=== PATIENT | male | born 1965 | race Caucasian/White ===

== ENCOUNTER 2022-12-07 08:00 | Outpatient (OUT) | payer BC, SELFPAY ==
[2022-12-07 08:40] LABS: Estimated Average Glucose 114 mg/dL; Glycohemoglobin A1C 5.6 % (4.5-6.2)
[2022-12-07 09:12] LABS: Basophils Percent Auto 0.4 % (0.2-2.0); Eosinophils Absolute Auto 0.1 10^3/uL (0.0-0.7); Eosinophils Percent Auto 1.4 % (0.9-7.0); Hematocrit 47.3 % (42.0-54.0); Hemoglobin 15.7 g/dL (14.0-18.0); Immature Granulocytes Abs Auto 0.04 10^3/uL (0.00-0.03); Immature Granulocytes Pct Auto 0.5 % (0.0-0.5); Lymphocytes Absolute Auto 2.1 10^3/uL (1.2-3.8); Mean Corpuscular HGB Conc 33.2 g/dL (29.9-35.2); Mean Corpuscular Hemoglobin 28.3 pg (25.9-34.0); Mean Corpuscular Volume 85.2 fL (80.0-94.0); Mean Platelet Volume 9.5 fL (9.5-13.5); Monocytes Absolute Auto 0.8 10^3/uL (0.3-0.8); Neutrophils Absolute Auto 4.6 10^3/uL (1.4-6.5); Neutrophils Percent Auto 60.7 % (43.0-75.0); Platelet Count 219 10^3/uL (150-450); Red Blood Count 5.55 10^6/uL (4.70-6.10); Red Cell Distribution Width 13.6 % (11.0-15.0); White Blood Count 7.6 10^3/uL (4.0-11.0)
[2022-12-07 09:13] LABS: Alanine Aminotransferase 81 U/L (16-63); Albumin Globulin Ratio 0.9; Albumin Level 3.8 g/dL (3.4-5.0); Alkaline Phosphatase 103 U/L (46-116); Anion Gap 10.2; Aspartate Amino Transferase 36 U/L (15-37); BUN Creatinine Ratio 20.9; Bilirubin Total 0.5 mg/dL (0.2-1.0); Calcium 9.3 mg/dL (8.5-10.1); Carbon Dioxide 31.2 mmol/L (21.0-32.0); Chloride 103 mmol/L (98-107); Estimated GFR (African America >60 (>=60); Estimated GFR (Non-African Ame >60 (>=60); Globulin 4.2 g/dL; Glucose 104 mg/dL (74-106); Potassium 4.4 mmol/L (3.5-5.1); Sodium 140 mmol/L (136-145)
[2022-12-07 09:39] LABS: Prostate Specific Antigen Scrn 0.45 ng/mL (<=4.00)
[2022-12-07 09:40] LABS: Chol HDL Ratio 3.8; Cholesterol 194 mg/dL (<=200); HDL Cholesterol 51 mg/dL (40-60); Thyroid Stimulating Hormone 2.989 uIU/mL (0.358-3.740); Triglycerides 154 mg/dL (<=150); VLDL CHOLESTEROL 30.8 mg/dL
== END 2022-12-07 08:01 | disposition home or self-care (01) ==
LOC: LAB 08:03
PROVIDERS: PCP Internal Medicine; Visit Provider Internal Medicine
DX: Z00.00 Encounter for general adult medical examination without abnormal findings (principal)
CPT/HCPCS: 36415; 80053; 80061; 83036; 84443; 85025; G0103

== ENCOUNTER 2023-12-17 16:08 | Outpatient (OUT) | payer BC, SELFPAY ==
[2023-12-17 16:36] LABS: Basophils Percent Auto 0.4 % (0.2-2.0); Eosinophils Absolute Auto 0.2 10^3/uL (0.0-0.7); Eosinophils Percent Auto 2.1 % (0.9-7.0); Hematocrit 45.5 % (42.0-54.0); Immature Granulocytes Abs Auto 0.06 10^3/uL (0.00-0.03); Immature Granulocytes Pct Auto 0.6 % (0.0-0.5); Lymphocytes Absolute Auto 2.4 10^3/uL (1.2-3.8); Lymphocytes Percent Auto 23.2 % (20.5-60.0); Mean Corpuscular Hemoglobin 28.7 pg (25.9-34.0); Mean Platelet Volume 9.2 fL (9.5-13.5); Monocytes Percent Auto 9.4 % (1.7-12.0); Neutrophils Absolute Auto 6.8 10^3/uL (1.4-6.5); Neutrophils Percent Auto 64.3 % (43.0-75.0); Platelet Count 214 10^3/uL (150-450); Red Blood Count 5.23 10^6/uL (4.70-6.10); Red Cell Distribution Width 13.2 % (11.0-15.0); White Blood Count 10.5 10^3/uL (4.0-11.0)
[2023-12-17 17:10] LABS: Prostate Specific Antigen Scrn 0.46 ng/mL (<=4.00)
[2023-12-17 17:17] LABS: Estimated Average Glucose 114 mg/dL; Glycohemoglobin A1C 5.6 % (4.5-6.2)
[2023-12-17 17:20] LABS: Alanine Aminotransferase 61 U/L (16-63); Alkaline Phosphatase 109 U/L (46-116); Anion Gap 10.8; Aspartate Amino Transferase 28 U/L (15-37); BUN Creatinine Ratio 16.1; Bilirubin Total 0.4 mg/dL (0.2-1.0); Calcium 8.8 mg/dL (8.5-10.1); Carbon Dioxide 30.3 mmol/L (21.0-32.0); Chloride 105 mmol/L (98-107); Estimated GFR (African America >60 (>=60); Estimated GFR (Non-African Ame 60 (>=60); Glucose 100 mg/dL (74-106); Potassium 4.1 mmol/L (3.5-5.1); Sodium 142 mmol/L (136-145); Total Protein 7.7 g/dL (6.4-8.2)
[2023-12-17 17:21] LABS: Albumin Level 3.8 g/dL (3.4-5.0); Cholesterol 197 mg/dL (<=200); Globulin 3.9 g/dL; HDL Cholesterol 49 mg/dL (40-60); Triglycerides 239 mg/dL (<=150); VLDL CHOLESTEROL 47.8 mg/dL
== END 2023-12-17 16:09 | disposition home or self-care (01) ==
LOC: LAB 16:10
PROVIDERS: PCP Internal Medicine; Visit Provider Internal Medicine
DX: Z00.00 Encounter for general adult medical examination without abnormal findings (principal)
CPT/HCPCS: 36415; 80053; 80061; 83036; 84443; 85025; G0103

== ENCOUNTER 2024-01-02 10:20 | Outpatient (OUT) | payer BC, SELFPAY ==
--- NOTE | 2024-01-02 10:34 | XR_ITS ---
The [address] [address] Patient Name: HERB CARDENAS MRN: [id number] date: 1965 Sex: M Assigned Patient Location: [facility] Current Patient Location: Accession/Order Number: [id number] Exam Date: 01/02/2024 10:41 Report Date: 01/03/2024 08:42 At the request of: SLOAN NICHOLS Procedure: XR knee LT 4V PROCEDURE: XR knee LT 4V HISTORY: Left Knee Pain M25.562 COMPARISON: None. FINDINGS: BONES:No fracture, dislocation, or bone lesion. Minimal degenerative joint disease. SOFT TISSUES:No visible soft tissue swelling. EFFUSION:None visible. OTHER: Negative. XR/XR knee LT 4V IMPRESSION: 1. No abnormal or suspicious findings to account for patient's symptoms. Electronically authenticated by: KENDAL GILLETTE Date: 01/03/2024 08:42
== END 2024-01-02 10:21 | disposition home or self-care (01) ==
LOC: RAD 10:21
PROVIDERS: PCP Internal Medicine; Visit Provider Internal Medicine
DX: M25.562 Pain in left knee (principal)
CPT/HCPCS: 73564

== ENCOUNTER 2024-01-22 09:39 | Outpatient (OUT) | payer BC, SELFPAY ==
--- NOTE | 2024-01-22 09:49 | XR_ITS ---
The [address] [address] Patient Name: HERB CARDENAS MRN: [id number] date: 1965 Sex: M Assigned Patient Location: [facility] Current Patient Location: Accession/Order Number: [id number] Exam Date: 01/22/2024 10:00 Report Date: 01/24/2024 06:59 At the request of: SLOAN NICHOLS Procedure: XR hip LT 2V w/ pelvis PROCEDURE: XR hip LT 2V w/ pelvis HISTORY: Pain Of Left Lower Extremity M79.605 COMPARISON: None. FINDINGS: BONES:Narrowing of the joint space of the left hip. Large degenerative osteophytes along superior rim of acetabulum. Separate corticated ossification may represent remote fracture of a degenerative enthesophyte. Small degenerative enthesophytes along the articular margins of the femoral head. SOFT TISSUES:No visible soft tissue swelling. EFFUSION:None visible. OTHER: Negative. XR/XR hip LT 2V w/ pelvis IMPRESSION: 1. Moderate to marked degenerative changes of left hip joint. 2. No acute abnormality. Electronically authenticated by: KENDAL GILLETTE Date: 01/24/2024 06:59
--- OUTSIDE RECORDS SUMMARY | 2024-01-22 09:53 | XMS_ITS | CCD ---
Author Organization [facility] Care Team Providers Care Corrosion Prevention Metal Sprayer Name Role Phone WALLY ZIMMER Unavailable Unavailable MCKINLEY ANAYA Unavailable Unavailab migue JAIMES, VIRGEN EUCEDA Primary Care Unavailable THEODORE, VIRGEN EUCEDA Consulting Unavailable LEANNA STAFFORD Attending Unavailable RIVERA, LEANNA Admitting Unavailable WIECEK, DR DECLAN Artis Admitting Unavailable WIECEK, DR DECLAN Artis Attending Unavailable WIECEK, DR DECLAN Artis Consulting Unavailable THEODORE, VIRGENCHEN EUCEDA Primary Care Unavailable WIECEK, DR DECLAN Artis Attending Unavailable WIECEK, DR DECLAN Artis Admitting Unavailable ROSS, VIRGENCHEN EUCEDA Primary Care Unavailable WIECEK, DR DECLAN Artis Attending Unavailable WIECEK, DR DECLAN Artis Consulting Unavailable WIECEK, DR DECLAN Artis Admitting Unavailable ROSS, VIRGENCHEN EUCEDA Primary Care Unavailable CARISSA CACERES Consulting Unavailable GEN, DR LISA Admitting Unavailable GEN, DR LISA Attending Unavailable GEN, DR LISA Consulting Unavailable GEN, DR LISA Primary Care Unavailable Aziza Byrne Unavailable [phone] Sofia Purvis Unavailable Asif Blevins Unavailable Medications Current Medications Medication Drug Class(es) Dates Sig (Normalized) Sig (Original) azithromycin 40 mg/ml oral suspension (4 sources) Macrolide Antimicrobial Start: 11-30-2022 take 12.5 mL by mouth once daily Azithromycin 200 MG/5ML 12.5 ML Orally daily for 3 days Nov, Active fluticasone propionate 0.05 mg/actuat metered dose nasal spray (7 sources) Corticosteroid Start: 12-16-2023 Fluticasone Propionate Active 1 SPRAY INTRANASAL Daily December 16, 2023 12:00am Start: 11-21-2022 take 1 spray(s) nasa l route once daily Fluticasone Propionate 50 MCG/ACT 1 spray in each nostril Nasally Once a day for 30 days 14 Nov, 2022 Active levothyroxine sodium 0.1 mg oral tablet (8 sources) l-Thyroxine Start: 12-16-2023 take 1 tablet by mouth once daily in the morning Levothyroxine (Synthroid) 100 mcg tablet Active 0 .ROUTE .COMPLEX 90 December 16, 2023 9:35am TAKE 1 TABLET BY MOUTH EVERY DAY IN THE MORNING ON EMPTY STOMACH FOR 90 DAYS Start: 12-16-2023 End: 12-16-2023 take 100 ug by mouth once daily Levothyroxine Disconti nued 100 MCG PO Daily December 16, 2023 12:00am December 16, 2023 9:35am take 1 tablet by neva th once daily in the morning Synthroid 100 MCG 1 tablet in the morning on an empty stomach Orally Once a day for 90 days unsure of dose Active Synthroid unsure of dose Active Completed/Discontinued Medications Medication Drug Class(es) Dates Sig (Normalized) Sig (Original) amoxicillin 875 mg / clavulanate 125 mg oral tablet (5 sources) Penicillin-class Antibacterial Start: 11-24-2022 take 1 tablet by mouth every twelve hours Amoxicillin-Pot Clavulanate 875-125 MG 1 tablet Orally every 12 hrs for 7 days Nov, Not-Taking Problems Active Problems Problem Classification Problem Date Documented Date Episodic/Chronic Abdominal hernia (6 sources) Umbilical hernia with obstruction, without gangrene; Translations: [Umbilical hernia without obstruction or gangrene] Onset: 1 Episodic Acute bronchitis (1 source) Acute bronchitis due to other specified organisms Episodic Developmental disorders (7 sources) Mental retardation; Translations: [Unspecified intellectual disabilities] 12-29-2023 Chronic Developmental disorders (1 source) Borderline intellectual functioning Episodic Disorders of lipid metabolism (1 source) Pure hypercholesterolemia, unspecified; Translations: [PURE HYPERCHOLESTEROLEMIA UNSPEC] Onset: 1 Chronic Esophageal disorders (1 source) Gastro-esophageal reflux disease without esophagitis; Translations: [GERD WITHOUT ESOPHAGITIS] Onset: 1 Chronic Other connective tissue disease (1 source) Spasm; Translations: [Muscle spasm of calf] Episodic Other non-traumatic joint disorders (1 source) Pain in left knee; Translations: [Left knee pain] 01-02-2024 Episodic Other nutritional; endocrine; and metabolic disorders (1 source) Obesity; Translations: [Obesity, unspecified] Chronic Other nutritional; endocrine; and metabolic disorders (1 source) Body mass index 25-29 - overweight; Translations: [Body mass index (BMI) 29.0-29.9, adult] Episodic Other nutritional; endocrine; and metabolic disorders (1 source) Overweight; Translations: [Overweight] Episodic Other screening for suspected conditions (not mental disorders or infectious disease) (5 sources) Encounter for screening for malignant neoplasm of prostate; Translations: [Encounter for screening for malignant neoplasm of colon] Onset: 2 Episodic Other upper respiratory infections (3 sources) Acute upper respiratory infection, unspecified; Translations: [Acute pharyngitis, unspecified] Episodic Residual codes; unclassified (1 source) Other specified personal risk factors, not elsewhere classified; Translations: [Personal risk factor] Episodic Thyroid disorders (18 sources) Hypothyroidism, unspecified; Translations: [Autoimmune thyroiditis] Onset: 1 Chronic Unclassified (1 source) Unknown / UNK(Unknown) Onset: 8 Unclassified (3 sources) CONTACT W/AND (SUSP) EXPOS COVID-19; Translations: [CONTACT W/AND (SUSP) EXPOS COVID-19] Onset: 1 Viral infection (1 source) COVID-19; Translations: [COVID-19] Onset: 2 Past or Other Problems Problem Classification Problem Date Documented Da te Episodic/Chronic Other aftercare (1 source) Other intermediate (current) drug therapy; Translations: [OTH [facility] CURRENT DRUG THERAPY] Onset: 02-08-2021 Episodic Unclassified (1 source) CONTACT W/AND (SUSP) EXPOS COVID-19; Translations: [CONTACT W/AND (SUSP) EXPOS COVID-19] Onset: 06-14-2021 Results Test Name Value Interpretation Reference Range Facility Basophils Auto (Bld) [#/Vol] on 12-17-2023 Basophils (Bld) [#/Vol] 0.0 10 3/uL 0.0-0.1 [facility] Basophils/100 WBC Auto (Bld) on 12-17-2023 Basophils/100 WBC (Bld) 0.4 % 0.2-2.0 [facility] Cholesterol in LDL Calc [Mas s/Vol]on 12-17-2023 Cholesterol in LDL [Mass/Vol] 101.0 mg/dL [facility] Comment on above: <100 mg/dl [id number] 0-129 mg/dl NEAR OR ABOVE [id number] mg/dl BORDERLINE [id number] mg/dl HIGH>190 mg/dl VERY HIGH Cholesterol in VLDL Calc [Ma ss/Vol]on 12-17-2023 Cholesterol in VLDL [Mass/Vol] 47.8 mg/dL [facility] Eosinophils/100 WBC Auto (Bl d)on 12-17-2023 Eosinophils/100 WBC (Bld) 2.1 % 0.9-7.0 [facility] Erythrocyte distribution wid th Auto (RBC) [Ratio]on 12-17-2023 Erythrocyte distribution width (RBC) [Ratio] 13.2 % 11.0-15.0 [facility] Estimated glomerular filtrat ion rate (GFR) non- Americanon 12-17-2023 GFR/1.73 sq M.predicted among non-blacks MDRD (S/P/Bld) [Vol rate/Area] 60 mL/min/{1.73_m2} >=60 [facility] Globulin Calc (S) [Mass/Vol] on 12-17-2023 Globulin (S) [Mass/Vol] 3.9 g/dL [facility] Glucose mean value [Mass/vol ume] in Blood Estimated from glycated hemoglobinon 12-17-2023 Average glucose Estimated from glycated hemoglobin (Bld) [Mass/Vol] 114 mg/dL [facility] Hematocrit Auto (Bld) [Volum e fraction]on 12-17-2023 Hematocrit (Bld) [Volume fraction] 45.5 % 42.0-54.0 [facility] Hemoglobin [Mass/volume] in Bloodon 12-17-2023 Hemoglobin (Bld) [Mass/Vol] 15.0 g/dL 14.0-18.0 [facility] Laboratory - Chemistry and C hemistry - challengeon 12-17-2023 Albumin [Mass/Vol] 3.8 g/dL 3.4-5.0 [facility] ALP [Catalytic activity/Vol] 109 U/L 46-116 [facility] ALT [Catalytic activity/Vol] 61 U/L 16-63 [facility] AST [Catalytic activity/Vol] 28 U/L 15-37 [facility] Bilirubin [Mass/Vol] 0.4 mg/dL 0.2-1.0 [facility] Calcium [Mass/Vol] 8.8 mg/dL 8.5-10.1 [facility] Chloride [Moles/Vol] 105 mmol/L 98-107 [facility] Cholesterol [Mass/Vol] 197 mg/dL <=200 [facility] Cholesterol in HDL [Mass/Vol] 49 mg/dL 40-60 [facility] Comment on above: > or =60 mg/dl - LOW CARDIOVASCULAR RISK<40 mg/dl - HIGH CARDIOVASCULAR RISK CO2 [Moles/Vol] 30.3 mmol/L 21.0-32.0 [facility] Creatinine [Mass/Vol] 1.24 mg/dL 0.70-1.30 [facility] GFR/1.73 sq M.predicted MDRD (S/P/Bld) [Vol rate/Area] mL/min/{1.73_m2} >=60 [facility] Glucose [Mass/Vol] 100 mg/dL 74-106 [facility] Potassium [Moles/Vol] 4.1 mmol/L 3.5-5.1 [facility] Protein [Mass/Vol] 7.7 g/dL 6.4-8.2 [facility] Sodium [Moles/Vol] 142 mmol/L 136-145 [facility] Triglyceride [Mass/Vol] 239 mg/dL High <=150 [facility] TSH Qn 2.480 m[IU]/L 0.358-3.740 [facility] Urea nitrogen [Mass/Vol] 20.0 mg/dL High 7.0-18.0 [facility] Urea nitrogen/Creatinine [Mass ratio] 16.1 mg/mg [facility] Laboratory - Hematology and Cell countson 12-17-2023 HbA1c (Bld) [Mass fraction] 5.6 % 4.5-6.2 [facility] Comment on above: ADA RECOMMENDED LIMI T 4.0 - 6.0ADA THERAPEUTIC TARGET < 7.0ACTION SUGGESTED> 7.0 Immature granulocytes/100 WBC (Bld) 0.6 % High 0.0-0.5 [facility] Leukocytes [#/volume] correc arthur for nucleated erythrocytes in Blood by Automated counon 12-17-2023 WBC corrected for nucl RBC Auto (Bld) [#/Vol] 10.5 10 3/uL 4.0-11.0 [facility] Lymphocytes Auto (Bld) [#/Vo l]on 12-17-2023 Lymphocytes (Bld) [#/Vol] 2.4 10 3/uL 1.2-3.8 [facility] Lymphocytes/100 WBC Auto (Bl d)on 12-17-2023 Lymphocytes/100 WBC (Bld) 23.2 % 20.5-60.0 [facility] MCH Auto (RBC) [Entitic mass ]on 12-17-2023 MCH (RBC) [Entitic mass] 28.7 pg 25.9-34.0 [facility] MCHC Auto (RBC) [Mass/Vol]on 12-17-2023 MCHC (RBC) [Mass/Vol] 33.0 g/dL 29.9-35.2 [facility] MCV Auto (RBC) [Entitic vol] on 12-17-2023 MCV (RBC) [Entitic vol] 87.0 fL 80.0-94.0 [facility] Monocytes Auto (Bld) [#/Vol] on 12-17-2023 Monocytes (Bld) [#/Vol] 1.0 10 3/uL High 0.3-0.8 [facility] Monocytes/100 WBC Auto (Bld) on 12-17-2023 Monocytes/100 WBC (Bld) 9.4 % 1.7-12.0 [facility] Neutrophils Auto (Bld) [#/Vo l]on 12-17-2023 Neutrophils (Bld) [#/Vol] 6.8 10 3/uL High 1.4-6.5 [facility] Neutrophils/100 WBC Auto (Bl d)on 12-17-2023 Neutrophils/100 WBC (Bld) 64.3 % 43.0-75.0 [facility] No Panel Informationon 12-16 Eosinophils # (Auto) 0.2 10 3/uL 0.0-0.7 [facility] Immature Granulocyte # (Auto) 0.06 10 3/uL High 0.00-0.03 [facility] Prostate Specific Antigen Screen 0.46 ng/mL <=4.00 [facility] Platelet mean volume Auto (B ld) [Entitic vol]on 12-17-2023 Platelet mean volume (Bld) [Entitic vol] 9.2 fL Low 9.5-13.5 [facility] Platelets Auto (Bld) [#/Vol] on 12-17-2023 Platelets (Bld) [#/Vol] 214 10 3/uL 150-450 [facility] RBC Auto (Bld) [#/Vol]on RBC (Bld) [#/Vol] 5.23 10 6/uL 4.70-6.10 [facility] Serum or plasma albumin/glob ulin mass ratioon 12-17-2023 Albumin/Globulin [Mass ratio] 1.0 {ratio} [facility] Serum or plasma anion gap de terminationon 12-17-2023 Anion gap [Moles/Vol] 10.8 mmol/L [facility] Serum or plasma total choles terol/high density lipoprotein (HDL) cholesterol mass maury 12-17-2023 Cholesterol.total/C holesterol in HDL [Mass ratio] 4.0 {ratio} [facility] Comment on above: 3.3 - 4.4 LOW RISK4. 4 - 7.1 AVERAGE RISK7.1 - 11.0 MODERATE RISK>11.0 HIGH RISK Quick Strepon 11-24-2022 S. pyogenes Org specific cx Ql (Throat) Negative [employer] [facility] [employer] Other Quick Strep [employer] [facility] [employer] Other CBC AUTO DIFFon 11-29-2021 BASO # 0.1 103/ul Normal 0.0-0.1 [facility] Comment on above: Performed By: #### C BC #### [facility] [address] [address] [address] Eliza Barnes Basophils/100 WBC (Bld) 0.6 % Normal 0.2-2.0 [facility] Comment on above: Performed By: #### C BC #### [facility] [address] [address] [address] Eliza Barnes EO # 0.1 103/ul Normal 0.0-0.7 [facility] Comment on above: Performed By: #### C BC #### [facility] [address] [address] [address] Eliza Barnes Eosinophils/100 WBC (Bld) 1.7 % Normal 0.9-7.0 [facility] Comment on above: Performed By: #### C BC #### [facility] [address] [address] [address] Eliza Barnes Erythrocyte distribution width (RBC) [Ratio] 13.6 % Normal 11.0-15.0 [facility] Comment on above: Performed By: #### C BC #### [facility] [address] [place] [address] Dr. Eliza Barnes Hematocrit (Bld) [Volume fraction] 48.3 % Normal 42.0-54.0 [facility] Comment on above: Performed By: #### C BC #### [facility] [address] [place] [address] Dr. Eliza Barnes Hemoglobin (Bld) [Mass/Vol] 15.7 g/dL Normal 14.0-18.0 [facility] Comment on above: Performed By: #### C BC #### [facility] [address] [place] [address] Dr. Eliza Barnes IG # 0.09 10e3/ul Critically high 0.00-0.03 [facility] Comment on above: Performed By: #### C BC #### [facility] [address] [address] [address] Eliza Barnes IG % 1.1 % Critically high 0.0-0.5 [facility] Comment on above: Performed By: #### C BC #### [facility] [address] [place] [address] Dr. Eliza Barnes LYMPH # 2.1 103/ul Normal 1.2-3.8 [facility] Comment on above: Performed By: #### C BC #### [facility] [address] [place] [address] Dr. Eliza Barnes Lymphocytes/100 WBC (Bld) 25.7 % Normal 20.5-60.0 [facility] Comment on above: Performed By: #### C BC #### [facility] [address] [place] [address] Dr. Eliza Barnes MANUAL DIFF REQ NO Normal [facility] Comment on above: Performed By: #### C BC #### [facility] [address] [place] [address] Dr. Eliza Barnes MCH (RBC) [Entitic mass] 28.3 pg Normal 25.9-34.0 [facility] Comment on above: Performed By: #### C BC #### [facility] [address] [place] [address] Dr. Eliza Barnes MCHC (RBC) [Mass/Vol] 32.5 g/dL Normal 29.9-35.2 [facility] Comment on above: Performed By: #### C BC #### [facility] [address] [place] [address] Dr. Eliza Barnes MCV (RBC) [Entitic vol] 87.0 fL Normal 80.0-94.0 [facility] Comment on above: Performed By: #### C BC #### [facility] [address] [place] [address] Dr. Eliza Barnes MONO # 0.7 103/ul Normal 0.3-0.8 [facility] Comment on above: Performed By: #### C BC #### [facility] [address] [place] [address] Dr. Eliza Barnes Monocytes/100 WBC (Bld) 8.8 % Normal 1.7-12.0 [facility] Comment on above: Performed By: #### C BC #### [facility] [address] [place] [address] Dr. Eliza Barnes NEUT # 5.2 103/ul Normal 1.4-6.5 [facility] Comment on above: Performed By: #### C BC #### [facility] [address] [address] [address] Eliza Barnes Neutrophils/100 WBC (Bld) 62.1 % Normal 43.0-75.0 [facility] Comment on above: Performed By: #### C BC #### [facility] [address] [address] [address] Eliza Barnes Platelet mean volume (Bld) [Entitic vol] 9.3 fL Critically low 9.5-13.5 [facility] Comment on above: Performed By: #### C BC #### [facility] [address] [address] [address] Eliza Barnes PLT 218 103/ul Normal 150-450 [facility] Comment on above: Performed By: #### C BC #### [facility] [address] [place] [address] Dr. Eliza Barnes RBC 5.55 106/ul Normal 4.70-6.10 [facility] Comment on above: Performed By: #### C BC #### [facility] [address] [place] [address] Dr. Eliza Barnes WBC 8.3 103/ul Normal 4.0-11.0 [facility] Comment on above: Performed By: #### C BC #### [facility] [address] [place] [address] Dr. Eliza Barnes GLYCOHEMOGLOBIN A1Con 2021 ADA RECOMMENDATION SEE BELOW Normal [facility] Comment on above: Result Comment: ADA RECOMMENDED LIMIT 4.0 - 6.0 ADA THERAPEUTIC TARGET < 7.0 ACTION SUGGESTED > 7.0 Performed By: #### A 1C #### [facility] [address] [place] [address] Dr. Eliza Barnes Glucose [Mass/Vol] 114 mg/dL Normal [facility] Comment on above: Performed By: #### A 1C #### [facility] [address] [place] [address] Dr. Eliza Barnes HbA1c (Bld) [Mass fraction] 5.6 % Normal 4.5-6.2 [facility] Comment on above: Performed By: #### A 1C #### [facility] [address] [address] [address] Eliza Barnes LIPID PROFILEon 11-29-2021 CHOL-HDL RATIO NORM SEE BELOW Normal [facility] Comment on above: Result Comment: 3.3 - 4.4 LOW RISK 4.4 - 7.1 AVERAGE RISK 7.1 - 11.0 MODERATE RISK >11.0 HIGH RISK Performed By: #### C MP, TSH, LIPID #### [facility] [address] [address] [address] Eliza Barnes Cholesterol [Mass/Vol] 210 mg/dL Critically high <=200 [facility] Comment on above: Performed By: #### C MP, TSH, LIPID #### [facility] [address] [address] [address] Eliza Barnes Cholesterol in HDL [Mass/Vol] 52 mg/dL Normal 40-60 [facility] Comment on above: Performed By: #### C MP, TSH, LIPID #### [facility] [address] [place] [address] Dr. Eliza Barnes Cholesterol in LDL [Mass/Vol] 121.2 mg/dL Normal [facility] Comment on above: Performed By: #### C MP, TSH, LIPID #### [facility] [address] [address] [address] Eliza Barnes Cholesterol.total/C holesterol in HDL [Mass ratio] 4.0 {ratio} Normal [facility] Comment on above: Performed By: #### C MP, TSH, LIPID #### [facility] [address] [place] [address] Dr. Eliza Barnes HDL NORMAL > or = 60 mg/dl - LO W CARDIOVASCULAR RISK <40 mg/dl - HIGH CARDIOVASCULAR RISK Normal [facility] Comment on above: Performed By: #### C MP, TSH, LIPID #### [facility] [address] [place] [address] Dr. Eliza Barnes LDL CALC NORMAL SEE BELOW Normal [facility] Comment on above: Result Comment: <100 mg/dl OPTIMAL 100 - 129 mg/dl NEAR OR ABOVE OPTIMAL 130 - 159 mg/dl BORDERLINE HIGH 160 - 189 mg/dl HIGH >190 mg/dl VERY HIGH Performed By: #### C MP, TSH, LIPID #### [facility] [address] [place] [address] Dr. Eliza Barnes Triglyceride [Mass/Vol] 184 mg/dL Critically high <=150 [facility] Comment on above: Performed By: #### C MP, TSH, LIPID #### [facility] [address] [place] [address] Dr. Eliza Barnes VLDL CALC 36.8 mg/dL Normal [facility] Comment on above: Performed By: #### C MP, TSH, LIPID #### [facility] [address] [place] [address] Dr. Eliza Barnes PROF 14(COMP METB)on 022 Albumin [Mass/Vol] 3.8 g/dL Normal 3.4-5.0 [facility] Comment on above: Performed By: #### C MP, TSH, LIPID #### [facility] [address] [place] [address] Dr. Eliza Barnes Albumin/Globulin [Mass ratio] 0.9 {ratio} Normal [facility] Comment on above: Performed By: #### C MP, TSH, LIPID #### [facility] [address] [place] [address] Dr. Eliza Barnes ALP [Catalytic activity/Vol] 99 U/L Normal 46-116 [facility] Comment on above: Performed By: #### C MP, TSH, LIPID #### [facility] [address] [place] [address] Dr. Eliza Barnes ALT [Catalytic activity/Vol] 81 U/L Critically high 16-63 [facility] Comment on above: Performed By: #### C MP, TSH, LIPID #### [facility] [address] [place] [address] Dr. Eliza Barnes Anion gap [Moles/Vol] 11.4 mmol/L Normal [facility] Comment on above: Performed By: #### C MP, TSH, LIPID #### [facility] [address] [place] [address] Dr. Eliza Barnes AST [Catalytic activity/Vol] 31 U/L Normal 15-37 [facility] Comment on above: Performed By: #### C MP, TSH, LIPID #### [facility] [address] [place] [address] Dr. Eliza Barnes Bilirubin [Mass/Vol] 0.6 mg/dL Normal 0.2-1.0 [facility] Comment on above: Performed By: #### C MP, TSH, LIPID #### [facility] [address] [address] [address] Eliza Barnes Calcium [Mass/Vol] 8.9 mg/dL Normal 8.5-10.1 [facility] Comment on above: Performed By: #### C MP, TSH, LIPID #### [facility] [address] [place] [address] Dr. Eliza Barnes Chloride [Moles/Vol] 105 mmol/L Normal 98-107 [facility] Comment on above: Performed By: #### C MP, TSH, LIPID #### [facility] [address] [place] [address] Dr. Eliza Barnes CO2 [Moles/Vol] 29.5 mmol/L Normal 21.0-32.0 [facility] Comment on above: Performed By: #### C MP, TSH, LIPID #### [facility] [address] [place] [address] Dr. Eliza Barnes Creatinine [Mass/Vol] 1.02 mg/dL Normal 0.70-1.30 [facility] Comment on above: Performed By: #### C MP, TSH, LIPID #### [facility] [address] [place] [address] Dr. Eliza Barnes EGFR-AF [place] >60 Normal >=60 [facility] Comment on above: Performed By: #### C MP, TSH, LIPID #### [facility] [address] [place] [address] Dr. Eliza Barnes EGFR-NON AF [place] >60 Normal >=60 [facility] Comment on above: Performed By: #### C MP, TSH, LIPID #### [facility] [address] [place] [address] Dr. Eliza Barnes Globulin (S) [Mass/Vol] 4.0 g/dL Normal [facility] Comment on above: Performed By: #### C MP, TSH, LIPID #### [facility] [address] [address] [address] Eliza Barnes Glucose [Mass/Vol] 103 mg/dL Normal 74-106 [facility] Comment on above: Performed By: #### C MP, TSH, LIPID #### [facility] [address] [place] [address] Dr. Eliza Barnes Potassium [Moles/Vol] 3.9 mmol/L Normal 3.5-5.1 [facility] Comment on above: Performed By: #### C MP, TSH, LIPID #### [facility] [address] [place] [address] Dr. Eliza Barnes Protein [Mass/Vol] 7.8 g/dL Normal 6.4-8.2 [facility] Comment on above: Performed By: #### C MP, TSH, LIPID #### [facility] [address] [place] [address] Dr. Eliza Barnes Sodium [Moles/Vol] 142 mmol/L Normal 136-145 [facility] Comment on above: Performed By: #### C MP, TSH, LIPID #### [facility] [address] [place] [address] Dr. Eliza Barnes Urea nitrogen [Mass/Vol] 19.0 mg/dL Critically high 7.0-18.0 [facility] Comment on above: Performed By: #### C MP, TSH, LIPID #### [facility] [address] [place] [address] Dr. Eliza Barnes Urea nitrogen/Creatinine [Mass ratio] 18.6 mg/mg Normal [facility] Comment on above: Performed By: #### C MP, TSH, LIPID #### [facility] [address] [place] [address] Dr. Eliza Barnes TSHon 11-29-2021 TSH 3.463 uIU/mL Normal 0.358-3.740 [facility] Comment on above: Performed By: #### C MP, TSH, LIPID #### [facility] [address] [address] [address] Eliza Barnes Covid-19 PCR (CVDTB)on SARS-CoV-2 (COVID-19) RNA MANFRED+probe Ql (Unsp spec) Detected Critically abnormal NOT DETECTED [facility] Comment on above: Result Comment: This test is not yet approved or cleared by the [place] FDA. When there are no FDA-approved or cleared tests available, and other criteria are met, FDA can make tests available under an emergency access mechanism called an Emergency Use Authorization (EUA). The EUA for this test is supported by the [place] of Health and Human Service's (HHS's) declaration that circumstances exist to justify the emergency use of in vitro diagnostics for the detection and/or diagnosis of the virus that causes COVID-19. This EUA will remain in effect (meaning this test can be used) for the duration of the COVID-19 declaration justifying emergency of IVDs, unless it is terminated or revoked by FDA (after which the test may no longer be used). Performed By: #### C VDTBH #### [facility] [address] [address] [address] Eliza Barnes Covid-19 PCR (CVDTB)on 01-09 SARS-CoV-2 (COVID-19) RNA MANFRED+probe Ql (Unsp spec) Not detected Normal NOT DETECTED [facility] Comment on above: Result Comment: This test is not yet approved or cleared by the [place] FDA. When there are no FDA-approved or cleared tests available, and other criteria are met, FDA can make tests available under an emergency access mechanism called an Emergency Use Authorization (EUA). The EUA for this test is supported by the [place] of Health and Human Service's (HHS's) declaration that circumstances exist to justify the emergency use of in vitro diagnostics for the detection and/or diagnosis of the virus that causes COVID-19. This EUA will remain in effect (meaning this test can be used) for the duration of the COVID-19 declaration justifying emergency of IVDs, unless it is terminated or revoked by FDA (after which the test may no longer be used). When diagnostic testing is negative, the possibility of a false negative should be considered in the context of a patient's recent exposures and the presence of clinical signs and symptoms consistent with SARS-CoV-2. Performed By: #### C [facility] #### [facility] [address] [place], [place] [address] Arun OLSONon 10-01-2017 PROGRESS HNO ID: [id number]: Wally ZimmerService: (none)Author Type: PhysicianType: Progress NotesFiled: 10/01/2017 3:12 PMNote Text:(H35.373) Epiretinal membrane (ERM) of both eyes (primary encounterdiagnosis)(H 50.10) Exotropia of left eye(Z98.890) History of strabismus surgery(H53.041) Amblyopia suspect, right eye52 year old male patient that presents for a retinal evaluation. Onexamination today, the patient demonstrates an Epiretinal membrane in theright eye > Left eye. Additionally the patient has a history of strabismussurgery in youth with possible amblyopia Right eye. No cataract is presentand the vision is testing reasonably well. Advise observation alone.Return to clinic with Dr. Anaya in 6 months, as needed with retina.The documentation recorded by the scribe accurately reflects the service Ipersonally performed and the decisions made by me.I have confirmed and edited as necessary the relevant ophthalmic history,ROS, and the neuro exam findings as obtained by others. I have seen andexamined Tico Marshall. I have discussed the case and the management ofthis patient's care with the Orchestra Conductor, if applicable. I also havereviewed and agree with the assessment and plan as stated above and agreewith all of its relevant components.Wally Zimmer MDAflemiliano 2017 3:11 PM Normal [facility] Vital Signs Date Time Vital Sign Value Performing Clinician Facility 01-02-2024 09:38-0400 Body height 167.64 cm [facility] 01-02-2024 09:38-0400 Body mass index (BMI) [Ratio] 31 kg/m2 [facility] 01-02-2024 09:38-0400 Body weight 87.31 kg [facility] 01-02-2024 09:38-0400 Diastolic blood pressure 98 mm[Hg] [facility] 01-02-2024 09:38-0400 Heart rate 81 /min [facility] 01-02-2024 09:38-0400 Respiratory rate 12 /min [facility] 01-02-2024 09:38-0400 Systolic blood pressure 164 mm[Hg] [facility] 11-30-2022 11:00-0400 Body height 170.18 cm Asif Ball Other [facility] Other 11-30-2022 11:00-0400 Body mass index (BMI) [Ratio] 30.16 kg/m2 Asif Ball Other [facility] Other 11-30-2022 11:00-0400 Body weight 87.36 kg Asif Ball Other [facility] Other 11-30-2022 11:00-0400 Diastolic blood pressure 96 mm[Hg] Asif Ball Other [facility] Other 11-30-2022 11:00-0400 Respiratory rate 16 /min Asif Ball Other [facility] Other 11-30-2022 11:00-0400 Systolic blood pressure 153 mm[Hg] Asif Ball Other [facility] Other 11-24-2022 10:15-0400 Body height 170.18 cm Sofia Purvis Other [facility] Other 11-24-2022 10:15-0400 Body mass index (BMI) [Ratio] 29.94 kg/m2 Sofia Purvis Other [facility] Other 11-24-2022 10:15-0400 Body temperature 98.8 [degF] Sofia Purvis Other [facility] Other 11-24-2022 10:15-0400 Body weight 86.73 kg Sofia Hyun Other [facility] Other 11-24-2022 10:15-0400 Diastolic blood pressure 87 mm[Hg] Sofia Hyun Other [facility] Other 11-24-2022 10:15-0400 Respiratory rate 20 /min Sofia Hyun Other [facility] Other 11-24-2022 10:15-0400 SaO2% (BldA) [Mass fraction] 92 % Sofia Hyun Other [facility] Other 11-24-2022 10:15-0400 Systolic blood pressure 142 mm[Hg] Sofiamiguel Purvis Other [facility] Other 11-21-2022 14:15-0400 Body height 170.18 cm Aziza Byrne Other [facility] Other 11-21-2022 14:15-0400 Body mass index (BMI) [Ratio] 30.38 kg/m2 Aziza Byrne Other [facility] Other 11-21-2022 14:15-0400 Body weight 88 kg Aziza Byrne Other [facility] Other 11-21-2022 14:15-0400 Diastolic blood pressure 100 mm[Hg] Aziza Byrne Other [facility] Other 11-21-2022 14:15-0400 Systolic blood pressure 158 mm[Hg] Aziza Byrne Other [facility] Other Encounters Encounter Date Encounter Type Care Provider Facility Start: 01-02-2024 End: 01-02-2024 ambulatory [facility] Work Phone: Start: 01-02-2024 End: 01-02-2024 Encounter for general adult medical examination without abnormal findings [facility] Start: 01-02-2024 End: 01-02-2024 Patient encounter procedure [facility] Work Phone: Start: 12-17-2023 Non-patient / Non-visit [facility] Professional [employer] Work Phone: Start: 12-06-2023 Patient encounter status [facility] Start: 03-12-2023 End: 03-12-2023 ambulatory Asif Blevins Other [facility] Other Start: 03-12-2023 Telephone encounter Asif Blevins [facility] Start: 12-10-2022 End: 12-10-2022 ambulatory Asif Blevins Other [facility] Other Start: 12-10-2022 Telephone encounter Asif Blevins [facility] Start: 12-04-2022 End: 12-04-2022 ambulatory Asif Blevins Other [facility] Other Start: 12-04-2022 Telephone encounter Asif Ball [facility] Start: 11-30-2022 End: 11-30-2022 ambulatory Asif Blevins Other [facility] Other Start: 11-30-2022 Encounter for genera l adult medical examination without abnormal findings Asif [facility] Start: 11-30-2022 Periodic preventive med est patient 40-64yrs Asif Blevins [facility] Start: 11-24-2022 End: 11-24-2022 ambulatory Sofia Purvis Other [facility] Other Start: 11-24-2022 Office outpatient vi sit 15 minutes Sofia Purvis [facility] Start: 11-21-2022 End: 11-21-2022 ambulatory Aziza Byrne Other [facility] Other Start: 11-21-2022 Office outpatient vi sit 15 minutes Aziza Byrne [facility] Start: 11-30-2021 Encounter for genera l adult medical examination without abnormal findings DR ASIF BLEVINS [facility] Start: 11-29-2021 End: 11-30-[address] ASIF BLEVINS Facility:[facility] Start: 11-29-2021 End: 11-30-2021 Encounter for general adult medical examination without abnormal findings DR ASIF BLEVINS Facility:[facility] Start: 11-28-2021 Adult health examination Marin Blevins Other [facility] Other Start: 06-14-2021 End: 06-14-2021 ambulatory VIRGEN JAIMES Facility:[facility] Start: 02-08-2021 Encounter for preprocedural laboratory examination DR DECLAN LLANOS [facility] Start: 02-08-2021 Encounter for other preprocedural examination DR DECLAN LLANOS [facility] Start: 02-03-2021 End: 02-03-[address] DECLAN LLANOS Facility:[facility] Start: 01-31-2021 End: 02-01-[address] DECLAN LLANOS Facility:[facility] Start: 01-31-2021 End: 02-01-2021 Encounter for preprocedural laboratory examination DR DECLAN LLANOS Facility:[facility] Start: 01-25-2021 End: 01-26-[address] DECLAN LLANOS Facility:[facility] Start: 01-25-2021 End: 01-26-2021 Encounter for other preprocedural examination DR DECLAN LLANOS Facility:[facility] Start: 10-01-2017 End: 10-28-2017 Ambulatory WALLY ZIMMER [facility] Procedures Date Procedure Procedure Detail Performing Clinician Start: 11-29-2021 PSA screening VIRGEN AGUDELO Comment on above: Performed By: #### [facility] #### [facility] [address] [address] [address] Eliza Barnes Depression screening Destiny Blevins Other Plan of Treatment Date Care Activity Detail Author XR Knee - left 4 Views [facility] Immunizations Immunization Date Immunization Notes Care Provider Fa cility 07-07-2020 COVID-19 Joleen overton Other [facility] 06-08-2020 COVID-19 Joleen overton Other [facility] Payers Date Payer Category Payer Unknown [id number] 1965 Unknown [id number] 2.16.84 [id number] 1965 Unknown [id number] 2.16.84 [id number] 1965 Unknown [id number] 2.16.84 [id number] 1965 Unknown [id number] 2.16.84 [id number] 1965 Unknown [id number] 2.16.84 [id number] [id number] [id number] Social History Date Type Detail Facility Sex Assigned At [employer] [facility] Other Start: 11-30-2022 [facility] Start: 1965 Sex Assigned At Male F [facility] Evaluation note 12-04-2022 Note Date & Type Note Facility 12-04-2022 Evaluation note Encounter Date Diagnosis Assessment Notes Nov, Screening for colon cancer (ICD-10 - Z12.11) [facility] Other Evaluation note 11-30-2022 Note Date & Type Note Facility 11-30-2022 Evaluation note Encounter Date Diagnosis Assessment Notes Nov, Wellness examination (ICD-10 - Z00.00) Healthy diet and exercise. Reviewed age-appropriat e preventive testing recommended. Nov, Autoimmune thyroiditis (ICD-10 - E06.3) Euthyroid, yearly TSH Nov, Other specified hypothyroidism (ICD-10 - E03.8) Nov, Borderline learning disability (ICD-10 - R41.83) Family assisting w ADL Works at [employer] Nov, Acute bronchitis due to other specified organisms (ICD-10 - J20.8) Instructed to use Robitussin or Mucinex for cough, saline or Flonase NS for congestion, Tylenol for pain and fever. Nov, Screening PSA (prostate specific antigen) (ICD-10 - Z12.5) Yearly PSA Nov, Colon cancer screening (ICD-10 - Z12.11) DIscussed Cologuard vs colonoscopy [facility] Other Evaluation note 11-24-2022 Note Date & Type Note Facility 11-24-2022 Evaluation note Encounter Date Diagnosis Assessment Notes Nov, Sore throat (ICD-10 - J02.9) Patient is concerned for strep throat. Rapid strep is negative. Discussed sore throat is likely related to postnasal drip causing inflammation. May use warm salt water gargles, topical throat sprays or throat lozenges, ibuprofen or Tylenol for discomfort. Nov, Acute nasopharyngitis (ICD-10 - J00) Discussed with patient and family member that symptoms likely remain viral at this time. Discussed viral upper respiratory can last 7 to 14 days. Discussed antibiotics do not unfortunately treat viral illnesses. May use Mucinex DM, Claritin or Zyrtec for symptomatic treatment over next 5-6 days. May continue Flonase. Discussed will give printed Rx for Augmentin to start if symptoms or not gradually improving over the next 5 to 6 days. Discussed if does end up needing to take antibiotic should do probiotic supplement. Follow-up with PCP if no improvement after 7 days of antibiotic. [facility] Other Evaluation note 11-21-2022 Note Date & Type Note Facility 11-21-2022 Evaluation note Encounter Date Diagnosis Assessment Notes Nov, Viral upper respiratory illness (ICD-10 - J06.9) Symptoms appear viral today. Continue to use Tylenol and ibuprofen for general discomfort. May use plain mucinex and FLonse for symptom management. Encourage fluids and rest. Symptoms should improve within the next 4-7 days. If no improvement of symptoms by 7-10 days, patient should call the office and will send in an antibiotic. Patient should follow up sooner if symptoms worsen. Patient and mother verbalizes understanding and agreement with treatment plan. [facility] Other Clinical Note 02-03-2021 Note Date & Type Note Facility 02-03-2021 Note OPERATIVE NOTE OPERATION DATE: 02/03/2021 PREOPERATIVE DIAGNOSIS: Incarcerated umbilical hernia. POSTOPERATIVE DIAGNOSIS: Incarcerated umbilical hernia (containing omentum). PROCEDURE PERFORMED: Incarcerated umbilical hernia repair with partial omentectomy of incarcerated omentum. SURGEON: Declan Llanos MD [facility] PROJECT MANAGER: STEPHANIE Keita. ANESTHESIA: General, 0.5% Marcaine for local. DISPOSITION: Patient was extubated in the Operating Room then taken to PACU in fair condition. PROCEDURE: Patient was brought into the Operating Room and placed supine on the operating table. After establishment of general endotracheal anesthesia, the patient's abdomen was shaved with clippers and prepped and draped in a sterile fashion. An infraumbilical incision was made. The incision was carried down through the skin using sharp dissection and through the soft tissue using electrocautery Bovie. The umbilicus was encircled and the umbilical skin was removed from the hernia sac using electrocautery Bovie. The hernia sac was excised using electrocautery Bovie. The hernia had incarcerated omentum. This omentum was transected using the LigaSure device and passed off the table as a specimen. A medium size Ventralex graft was placed into the defect and sutured in 4 quadrants using 0 Vicryl in an interrupted fashion. The fascia was then closed over the mesh using 0 Vicryl in an interrupted fashion. The umbilical skin was tacked to the fascia using 3-0 Vicryl. The soft tissue was reapproximated using 3-0 Vicryl. The skin was reapproximated using 4-0 Monocryl in a subcuticular fashion. The incision was cleaned with normal saline and dried. Tincture of benzoin was placed on both sides of the incision and 1/2 inch Steri-Strips were placed. The patient's umbilicus was packed with gauze and a dry sterile dressing was placed. The patient tolerated the procedure without any difficulties. All instrument and sponge counts were correct at the end of the case. The patient was extubated in the Operating Room and taken to the PACU in fair condition.. [facility] Signed and Approved by: DR DECLAN LLANOS . 02/10/2021 06:37:00 [facility] Evaluation note Note Date & Type Note Facility Evaluation note No Information [facility] Other Evaluation note Note Date & Type Note Facility Evaluation note Diagnosis Onset Date Hypothyroid acute Learning disability acute Wellness examination acute Screening PSA (prostate specific antigen) noneactive [facility] Work Phone: History general Narrative - Reported Note Date & Type Note Facility History general Narrative - Reported Type Medical History Hypothyroid Surgical History hernia repair 2020 [facility] Other History general Narrative - Reported Note Date & Type Note Facility History general Narrative - Reported Type Medical History Hypothyroid Medical History Mental disability Medical History Adult hypothyroidism Surgical History hernia repair 2020 Hospitalization History SEE SURGICAL HX [facility] Other Summary Purpose Family History Relationship Condition Age at Onset Recorded Date/T raudel father Unknown Advance Directives Advance Directive Response Recorded Date/ Time Advance Directives No December 05 11:14am Chief Complaint and Reason for Visit Chief Complaint Wellness Reason for Visit Hypothyroid Learning disability Wellness examination Screening PSA (prostate specific antigen) Additional Source Comments (unrecognized sect ion and content) No Status Records FoundNo Status Records Found INFORMATION SOURCE (unrecogn ized section and content) DATE CREATED AUTHOR 11/27/2017 [facility] DATE CREATED AUTHOR 'S ORGANIZ ATION 12/01/2021 [facility] REASON FOR VISIT (unrecogniz ed section and content) Cough-COVID NegativeSORE THR OAT, STREPWELLNESSNo InformationLab Resultscologuard results Care Teams (unrecognized sec tion and content) Team Status: Active Member Role Status Dates Asif Blevins DO Primary Care Provider Active Team Status: Active Member Role Status Dates Asif Ball , DO Primary Care Provide r, Attending Provider Active Start: December 17, 2023 Team Status: Inactive Member Role Status Dates Asif Blevins , DO Primary Care Provide r, Attending Provider Active Start: January 02, 2024 End: January 02, 2024 Goals (unrecognized section and content) Goals may be documented in a n alternate section FOR RECORDS PERTAINING TO PATIENTS WHO ARE OR HAVE BEEN ENROLLED IN A CHEMICAL DEPENDENCY/SUBSTANCEABUSE PROGRAM, SOME INFORMATION MAY BE OMITTED. This clinical summary was aggregated from multiple sources. Caution should be exercised in using it in the provision of clinical care. This summary normalizes information from multiple sources, and as a consequence, information in this document may materially change the coding, format and clinical context of patient data. In addition, data may be omitted in some cases. CLINICAL DECISIONS SHOULD BE BASED ON THE PRIMARY CLINICAL RECORDS. [facility]io [facility]. provides no warranty or guarantee of the accuracy or completeness of information in this document.
== END 2024-01-22 09:40 | disposition home or self-care (01) ==
LOC: RAD 09:40
PROVIDERS: PCP Internal Medicine; Visit Provider Internal Medicine
DX: M79.605 Pain in left leg (principal)
CPT/HCPCS: 73502

== ENCOUNTER 2024-03-17 11:44 | Outpatient (OUT) | payer BC, SELFPAY ==
--- NOTE | 2024-03-17 | ECG_ITS ---
The [facility] Test Date: 2024-03-17 Pat Name: HERB CARDENAS Department: Room: - Gender: Male [employer]: : 1965 Requested By: SLOAN NICHOLS Order Number: [id number] Reading MD: SLOAN NICHOLS Measurements Intervals [place] Rate: 83 P: 55 SD: 188 QRS: 14 QRSD: 82 T: 36 QT: 337 QTc: 398 Interpretive Statements SINUS RHYTHM No previous ECG available for comparison Electronically Signed On 03-17-2024 22:40:13 EDT by SLOAN NICHOLS
--- OUTSIDE RECORDS SUMMARY | 2024-03-17 11:59 | XMS_ITS | CCD ---
Author Organization [facility] Care Team Providers Care Lockstitch Hemmer Name Role Phone WALLY ZIMMER Unavailable Unavailable [...] Primary Care Unavailable CARISSA CACERES Consulting Unavailable SIMONE, DR LISA Admitting Unavailable SIMONE, DR LISA Attending Unavailable SIMONE, DR LISA Consulting Unavailable SIMONE, DR LISA Primary Care Unavailable Aziza Byrne Unavailable [phone] Sofia Purvis Unavailable Asif Blevins Unavailable Medications Current Medications Medication Drug Class(es) Dates Sig (Normalized) Sig (Original) azithromycin 40 mg/ml oral suspension (4 sources) Macrolide Antimicrobial Start: 11-30-2022 take 12.5 mL by mouth once daily Azithromycin 200 MG/5ML 12.5 ML Orally daily for 3 days Nov, Active baclofen 20 mg oral tablet (2 sources) gamma-Aminobutyric Acid-ergic Agonist Start: 01-29-2024 take 20 mg by mouth once daily at bedtime Baclofen Active 20 MG PO Daily at bedtime January 29, 2024 12:00am fluticasone propionate 0.05 mg/actuat metered dose nasal spray (9 sources) Corticosteroid Start: 12-16-2023 Fluticasone Propionate Active 1 SPRAY INTRANASAL Daily December 16, 2023 12:00am Start: 11-21-2022 take 1 spray(s) nasa l route once daily Fluticasone Propionate 50 MCG/ACT 1 spray in each nostril Nasally Once a day for 30 days Nov, Active levothyroxine sodium 0.1 mg oral tablet (12 sources) l-Thyroxine Start: 12-16-2023 take 1 tablet [...] dose Active Synthroid unsure of dose Active meloxicam 15 mg oral tablet (4 sources) Nonsteroidal Anti-inflammatory Drug Start: 01-24-2024 End: 01-24-2024 take 15 mg by mouth once daily Meloxicam Active 15 MG PO Daily January 24, 2024 2:18pm take w/ [id number] Completed/Discontinued Medications Medication Drug Class(es) Dates Sig [...] [Umbilical hernia without obstruction or gangrene] Onset: Episodic Acute bronchitis (1 source) Acute bronchitis due to other specified organisms Episodic Developmental disorders (11 sources) Mental retardation; Translations: [Unspecified intellectual disabilities] 12-29-2023 Chronic Developmental disorders (1 source) Borderline intellectual functioning Episodic Disorders of lipid metabolism (1 source) Pure hypercholesterolemia, unspecified; Translations: [PURE HYPERCHOLESTEROLEMIA UNSPEC] Onset: 1 Chronic Esophageal disorders (1 source) Gastro-esophageal reflux disease without esophagitis; Translations: [GERD WITHOUT ESOPHAGITIS] Onset: 1 Chronic Osteoarthritis (5 sources) Osteoarthritis of left hip joint; Translations: [Unilateral primary osteoarthritis, left hip] 01-28-2024 Chronic Other circulatory disease (2 sources) Elevated blood-pressure reading without diagnosis of hypertension; Translations: [Elevated blood-pressure reading, without diagnosis of hypertension] 01-02-2024 Episodic Other circulatory disease (2 sources) Elevated blood-pressure reading, without diagnosis of hypertension; Translations: [Elevated blood pressure reading without diagnosis of hypertension] 01-02-2024 Episodic Other connective tissue disease (1 source) Spasm; Translations: [Muscle spasm of calf] Episodic Other non-traumatic joint disorders (5 sources) Pain in left knee; Translations: [Left knee pain] 01-02-2024 Episodic Other non-traumatic joint disorders (2 sources) Hip pain; Translations: [Pain in left hip] 01-28-2024 Episodic Other non-traumatic joint disorders (3 sources) Pain in left hip; Translations: [Pain in joint, pelvic region and thigh] 01-29-2024 Episodic Other nutritional; endocrine; and metabolic disorders (3 sources) Obesity; Translations: [Obesity, unspecified] 01-02-2024 Chronic Other nutritional; endocrine; and metabolic disorders (2 sources) Obesity, unspecified; Translations: [Obesity, unspecified] 01-02-2024 Chronic Other nutritional; endocrine; and metabolic disorders (1 source) Body mass index 25-29 - overweight; Translations: [Body mass index (BMI) 29.0-29.9, adult] Episodic Other nutritional; endocrine; and metabolic disorders (1 source) Overweight; Translations: [Overweight] Episodic Other screening for suspected conditions (not mental disorders or infectious disease) (7 sources) Encounter for screening for malignant neoplasm of prostate; Translations: [Encounter for screening for malignant neoplasm of colon] Onset: 2 Episodic Other upper respiratory infections (3 sources) Acute upper respiratory infection, unspecified; Translations: [Acute pharyngitis, unspecified] Episodic Residual codes; unclassified (1 source) Other specified personal risk factors, not elsewhere classified; Translations: [Personal risk factor] Episodic Thyroid disorders (20 sources) Hypothyroidism, unspecified; Translations: [Autoimmune thyroiditis] Onset: 1 Chronic Unclassified (1 source) Unknown / UNK(Unknown) Onset: 8 Unclassified (3 sources) CONTACT W/AND (SUSP) EXPOS COVID-19; Translations: [CONTACT W/AND (SUSP) EXPOS COVID-19] Onset: 1 Viral infection (1 source) COVID-19; Translations: [COVID-19] Onset: 2 Past or Other Problems Problem Classification Problem Date Documented Da te Episodic/Chronic Other aftercare (1 source) 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; Translations: [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 DRUG THERAPY] Onset: 02-08-2021 Episodic Unclassified (1 source) CONTACT W/AND (SUSP) EXPOS COVID-19; Translations: [CONTACT W/AND (SUSP) EXPOS COVID-19] Onset: 06-14-2021 Results Test Name Value Interpretation Reference Range Facility Basophils Auto (Bld) [#/Vol] on 12-17-2023 Basophils (Bld) [#/Vol] 0.0 10 3/uL 0.0-0.1 [facility] Basophils/100 WBC Auto (Bld) on 12-17-2023 Basophils/100 WBC (Bld) 0.4 % 0.2-2.0 [facility] Cholesterol in LDL Calc [Mas s/Vol]on 12-17-2023 Cholesterol in LDL [Mass/Vol] 101.0 mg/dL [facility] Comment on above: <100 mg/dl [id number] 0-129 mg/dl NEAR OR ABOVE [id number] mg/dl BORDERLINE [id number] mg/dl HIGH>190 mg/dl VERY HIGH Cholesterol in VLDL Calc [Ma ss/Vol]on 12-17-2023 Cholesterol in VLDL [Mass/Vol] 47.8 mg/dL [facility] Eosinophils/100 WBC Auto (Bl d)on 12-17-2023 Eosinophils/100 WBC (Bld) 2.1 % 0.9-7.0 [facility] Erythrocyte distribution wid th Auto (RBC) [Ratio]on 12-17-2023 Erythrocyte distribution width (RBC) [Ratio] 13.2 % 11.0-15.0 [facility] Estimated glomerular filtrat ion rate (GFR) non- Americanon 12-17-2023 GFR/1.73 sq M.predicted among non-blacks MDRD (S/P/Bld) [Vol rate/Area] 60 mL/min/{1.73_m2} >=60 [facility] Globulin Calc (S) [Mass/Vol] on 12-17-2023 Globulin (S) [Mass/Vol] 3.9 g/dL [facility] Glucose mean value [Mass/vol ume] in Blood Estimated from glycated hemoglobinon 12-17-2023 Average glucose Estimated from glycated hemoglobin (Bld) [Mass/Vol] 114 mg/dL [facility] Hematocrit Auto (Bld) [Volum e fraction]on 12-17-2023 Hematocrit (Bld) [Volume fraction] 45.5 % 42.0-54.0 [facility] Hemoglobin [Mass/volume] in Bloodon 12-17-2023 Hemoglobin (Bld) [Mass/Vol] 15.0 g/dL 14.0-18.0 [facility] Laboratory - Chemistry and C hemistry - challengeon 12-17-2023 Albumin [Mass/Vol] 3.8 g/dL 3.4-5.0 [facility] ALP [Catalytic activity/Vol] 109 U/L 46-116 [facility] ALT [Catalytic activity/Vol] 61 U/L 16-63 [facility] AST [Catalytic activity/Vol] 28 U/L 15-37 [facility] Bilirubin [Mass/Vol] 0.4 mg/dL 0.2-1.0 [facility] Calcium [Mass/Vol] 8.8 mg/dL 8.5-10.1 [facility] Chloride [Moles/Vol] 105 mmol/L 98-107 [facility] Cholesterol [Mass/Vol] 197 mg/dL <=200 [facility] Cholesterol in HDL [Mass/Vol] 49 mg/dL 40-60 [facility] Comment on above: > or =60 mg/dl - LOW CARDIOVASCULAR RISK<40 mg/dl - HIGH CARDIOVASCULAR RISK CO2 [Moles/Vol] 30.3 mmol/L 21.0-32.0 [facility] Creatinine [Mass/Vol] 1.24 mg/dL 0.70-1.30 [facility] GFR/1.73 sq M.predicted MDRD (S/P/Bld) [Vol rate/Area] mL/min/{1.73_m2} >=60 [facility] Glucose [Mass/Vol] 100 mg/dL 74-106 [facility] Potassium [Moles/Vol] 4.1 mmol/L 3.5-5.1 [facility] Protein [Mass/Vol] 7.7 g/dL 6.4-8.2 [facility] Sodium [Moles/Vol] 142 mmol/L 136-145 [facility] Triglyceride [Mass/Vol] 239 mg/dL High <=150 [facility] TSH Qn 2.480 m[IU]/L 0.358-3.740 [facility] Urea nitrogen [Mass/Vol] 20.0 mg/dL High 7.0-18.0 [facility] Urea nitrogen/Creatinine [Mass ratio] 16.1 mg/mg [facility] Laboratory - Hematology and Cell countson 12-17-2023 HbA1c (Bld) [Mass fraction] 5.6 % 4.5-6.2 [facility] Comment on above: ADA RECOMMENDED LIMI T 4.0 - 6.0ADA THERAPEUTIC TARGET < 7.0ACTION SUGGESTED> 7.0 Immature granulocytes/100 WBC (Bld) 0.6 % High 0.0-0.5 [facility] Leukocytes [#/volume] correc arthur for nucleated erythrocytes in Blood by Automated counon 12-17-2023 WBC corrected for nucl RBC Auto (Bld) [#/Vol] 10.5 10 3/uL 4.0-11.0 [facility] Lymphocytes Auto (Bld) [#/Vo l]on 12-17-2023 Lymphocytes (Bld) [#/Vol] 2.4 10 3/uL 1.2-3.8 [facility] Lymphocytes/100 WBC Auto (Bl d)on 12-17-2023 Lymphocytes/100 WBC (Bld) 23.2 % 20.5-60.0 [facility] MCH Auto (RBC) [Entitic mass ]on 12-17-2023 MCH (RBC) [Entitic mass] 28.7 pg 25.9-34.0 [facility] MCHC Auto (RBC) [Mass/Vol]on 12-17-2023 MCHC (RBC) [Mass/Vol] 33.0 g/dL 29.9-35.2 [facility] MCV Auto (RBC) [Entitic vol] on 12-17-2023 MCV (RBC) [Entitic vol] 87.0 fL 80.0-94.0 [facility] Monocytes Auto (Bld) [#/Vol] on 12-17-2023 Monocytes (Bld) [#/Vol] 1.0 10 3/uL High 0.3-0.8 [facility] Monocytes/100 WBC Auto (Bld) on 12-17-2023 Monocytes/100 WBC (Bld) 9.4 % 1.7-12.0 [facility] Neutrophils Auto (Bld) [#/Vo l]on 12-17-2023 Neutrophils (Bld) [#/Vol] 6.8 10 3/uL High 1.4-6.5 [facility] Neutrophils/100 WBC Auto (Bl d)on 12-17-2023 Neutrophils/100 WBC (Bld) 64.3 % 43.0-75.0 [facility] No Panel Informationon 12-16 Eosinophils # (Auto) 0.2 10 3/uL 0.0-0.7 [facility] Immature Granulocyte # (Auto) 0.06 10 3/uL High 0.00-0.03 [facility] Prostate Specific Antigen Screen 0.46 ng/mL <=4.00 [facility] Platelet mean volume Auto (B ld) [Entitic vol]on 12-17-2023 Platelet mean volume (Bld) [Entitic vol] 9.2 fL Low 9.5-13.5 [facility] Platelets Auto (Bld) [#/Vol] on 12-17-2023 Platelets (Bld) [#/Vol] 214 10 3/uL 150-450 [facility] RBC Auto (Bld) [#/Vol]on RBC (Bld) [#/Vol] 5.23 10 6/uL 4.70-6.10 [facility] Serum or plasma albumin/glob ulin mass ratioon 12-17-2023 Albumin/Globulin [Mass ratio] 1.0 {ratio} [facility] Serum or plasma anion gap de terminationon 12-17-2023 Anion gap [Moles/Vol] 10.8 mmol/L [facility] Serum or plasma total choles terol/high density lipoprotein (HDL) cholesterol mass maury 12-17-2023 Cholesterol.total/C holesterol in HDL [Mass ratio] 4.0 {ratio} [facility] Comment on above: 3.3 - 4.4 LOW RISK4. 4 - 7.1 AVERAGE RISK7.1 - 11.0 MODERATE RISK>11.0 HIGH RISK Quick Strepon 11-24-2022 S. pyogenes Org specific cx Ql (Throat) Negative [facility] [employer] Other Quick Strep Aunt Kitchen [facility] [employer] Other CBC AUTO DIFFon 11-29-2021 BASO # 0.1 103/ul Normal 0.0-0.1 [facility] Comment on above: Performed By: #### C BC #### [facility] [address] [place] [address] Dr. Eliza Barnes Basophils/100 WBC (Bld) 0.6 % Normal 0.2-2.0 [facility] Comment on above: Performed By: #### C BC #### [facility] [address] [place] [address] Dr. Eliza Barnes EO # 0.1 103/ul Normal 0.0-0.7 [facility] Comment on above: Performed By: #### C BC #### [facility] [address] [place] [address] Dr. Eliza Barnes Eosinophils/100 WBC (Bld) 1.7 % Normal 0.9-7.0 [facility] Comment on above: Performed By: #### C BC #### [facility] [address] [place] [address] Dr. Eliza Barnes Erythrocyte distribution width (RBC) [Ratio] 13.6 % Normal 11.0-15.0 [facility] Comment on above: Performed By: #### C BC #### [facility] [address] [place] [address] Dr. Eliza Barnes Hematocrit (Bld) [Volume fraction] 48.3 % Normal 42.0-54.0 [facility] Comment on above: Performed By: #### C BC #### [facility] [address] [place] [address] Dr. Eliza Barnes Hemoglobin (Bld) [Mass/Vol] 15.7 g/dL Normal 14.0-18.0 [facility] Comment on above: Performed By: #### C BC #### [facility] [address] [place] [address] Dr. Eliza Barnes IG # 0.09 10e3/ul Critically high 0.00-0.03 [facility] Comment on above: Performed By: #### C BC #### [facility] [address] [place] [address] Dr. Eliza Barnes IG % 1.1 % Critically high 0.0-0.[address] [facility] Comment on above: Performed By: #### C BC #### [facility] [address] [place] [address] Dr. Eliza Barnes LYMPH # 2.1 103/ul Normal 1.2-3.8 [facility] Comment on above: Performed By: #### C BC #### [facility] [address] [place] [address] Dr. Eliza Barnes Lymphocytes/100 WBC (Bld) 25.7 % Normal 20.5-60.0 [facility] Comment on above: Performed By: #### C BC #### [facility] [address] [place] [address] Dr. Eliza Barnes MANUAL DIFF REQ NO Normal [facility] Comment on above: Performed By: #### C BC #### [facility] [address] [place] [address] Dr. Eliza Barnes MCH (RBC) [Entitic mass] 28.3 pg Normal 25.9-34.0 [facility] Comment on above: Performed By: #### C BC #### [facility] [address] [address] [address] Eliza Barnes MCHC (RBC) [Mass/Vol] 32.5 g/dL Normal 29.9-35.2 [facility] Comment on above: Performed By: #### C BC #### [facility] [address] [address] [address] Eliza Barnes MCV (RBC) [Entitic vol] 87.0 fL Normal 80.0-94.0 [facility] Comment on above: Performed By: #### C BC #### [facility] [address] [place] [address] Dr. Eliza Barnes MONO # 0.7 103/ul Normal 0.3-0.8 [facility] Comment on above: Performed By: #### C BC #### [facility] [address] [place] [address] Dr. Eliza Barnes Monocytes/100 WBC (Bld) 8.8 % Normal 1.7-12.0 [facility] Comment on above: Performed By: #### C BC #### [facility] [address] [place] [address] Dr. Eliza Barnes NEUT # 5.2 103/ul Normal 1.4-6.5 [facility] Comment on above: Performed By: #### C BC #### [facility] [address] [place] [address] Dr. Eliza Barnes Neutrophils/100 WBC (Bld) 62.1 % Normal 43.0-75.0 [facility] Comment on above: Performed By: #### C BC #### [facility] [address] [place] [address] Dr. Eliza Barnes Platelet mean volume (Bld) [Entitic vol] 9.3 fL Critically low 9.5-13.5 [facility] Comment on above: Performed By: #### C BC #### [facility] [address] [place] [address] Dr. Eliza Barnes PLT 218 103/ul Normal 150-450 [facility] Comment on above: Performed By: #### C BC #### [facility] [address] [address] [address] Eliza Barnes RBC 5.55 106/ul Normal 4.70-6.10 [facility] Comment on above: Performed By: #### C BC #### [facility] [address] [place] [address] Dr. Eliza Barnes WBC 8.3 103/ul Normal 4.0-11.0 [facility] Comment on above: Performed By: #### C BC #### [facility] [address] [place] [address] Dr. Eliza Barnes GLYCOHEMOGLOBIN A1Con 2021 ADA RECOMMENDATION SEE BELOW Normal [facility] Comment on above: Result Comment: ADA RECOMMENDED LIMIT 4.0 - 6.0 ADA THERAPEUTIC TARGET < 7.0 ACTION SUGGESTED > 7.0 Performed By: #### A 1C #### [facility] [address] [place] [address] Dr. Eliza Barnes Glucose [Mass/Vol] 114 mg/dL Normal [facility] Comment on above: Performed By: #### A 1C #### [facility] [address] [place] [address] Dr. Eliza Barnes HbA1c (Bld) [Mass fraction] 5.6 % Normal 4.5-6.2 [facility] Comment on above: Performed By: #### A 1C #### [facility] [address] [place] [address] Dr. Eliza Barnes LIPID PROFILEon 11-29-2021 CHOL-HDL RATIO NORM SEE BELOW Normal [facility] Comment on above: Result Comment: 3.3 - 4.4 LOW RISK 4.4 - 7.1 AVERAGE RISK 7.1 - 11.0 MODERATE RISK >11.0 HIGH RISK Performed By: #### C MP, TSH, LIPID #### [facility] [address] [place] [address] Dr. Eliza Barnes Cholesterol [Mass/Vol] 210 mg/dL Critically high <=200 [facility] Comment on above: Performed By: #### C MP, TSH, LIPID #### [facility] [address] [address] [address] Eliza Barnes Cholesterol in HDL [Mass/Vol] 52 mg/dL Normal 40-60 [facility] Comment on above: Performed By: #### C MP, TSH, LIPID #### [facility] [address] [address] [address] Eliza Barnes Cholesterol in LDL [Mass/Vol] 121.2 mg/dL Normal [facility] Comment on above: Performed By: #### C MP, TSH, LIPID #### [facility] [address] [address] [address] Eliza Barnes Cholesterol.total/C holesterol in HDL [Mass ratio] 4.0 {ratio} Normal [facility] Comment on above: Performed By: #### C MP, TSH, LIPID #### [facility] [address] [place] [address] Dr. Eliza Barnes HDL NORMAL > or = 60 mg/dl - LO W CARDIOVASCULAR RISK <40 mg/dl - HIGH CARDIOVASCULAR RISK Normal [facility] Comment on above: Performed By: #### C MP, TSH, LIPID #### [facility] [address] [address] [address] Eliza Barnes LDL CALC NORMAL SEE BELOW Normal [facility] Comment on above: Result Comment: <100 mg/dl OPTIMAL 100 - 129 mg/dl NEAR OR ABOVE OPTIMAL 130 - 159 mg/dl BORDERLINE HIGH 160 - 189 mg/dl HIGH >190 mg/dl VERY HIGH Performed By: #### C MP, TSH, LIPID #### [facility] [address] [address] [address] Eliza Barnes Triglyceride [Mass/Vol] 184 mg/dL Critically high <=150 [facility] Comment on above: Performed By: #### C MP, TSH, LIPID #### [facility] [address] [address] [address] Eliza Barnes VLDL CALC 36.8 mg/dL Normal [facility] Comment on above: Performed By: #### C MP, TSH, LIPID #### [facility] [address] [address] [address] Eliza Barnes PROF 14(COMP METB)on 022 Albumin [Mass/Vol] 3.8 g/dL Normal 3.4-5.0 [facility] Comment on above: Performed By: #### C MP, TSH, LIPID #### [facility] [address] [address] [address] Eliza Barnes Albumin/Globulin [Mass ratio] 0.9 {ratio} Normal [facility] Comment on above: Performed By: #### C MP, TSH, LIPID #### [facility] [address] [address] [address] Eliza Barnes ALP [Catalytic activity/Vol] 99 U/L Normal 46-116 [facility] Comment on above: Performed By: #### C MP, TSH, LIPID #### [facility] [address] [address] [address] Eliza Barnes ALT [Catalytic activity/Vol] 81 U/L Critically high 16-63 [facility] Comment on above: Performed By: #### C MP, TSH, LIPID #### [facility] [address] [address] [address] Eliza Barnes Anion gap [Moles/Vol] 11.4 mmol/L Normal [facility] Comment on above: Performed By: #### C MP, TSH, LIPID #### [facility] [address] [address] [address] Eliza Barnes AST [Catalytic activity/Vol] 31 U/L Normal 15-37 [facility] Comment on above: Performed By: #### C MP, TSH, LIPID #### [facility] [address] [address] [address] Eliza Barnes Bilirubin [Mass/Vol] 0.6 mg/dL Normal 0.2-1.0 [facility] Comment on above: Performed By: #### C MP, TSH, LIPID #### [facility] [address] [address] [address] Eliza Barnes Calcium [Mass/Vol] 8.9 mg/dL Normal 8.5-10.1 [facility] Comment on above: Performed By: #### C MP, TSH, LIPID #### [facility] [address] [address] [address] Eliza Barnes Chloride [Moles/Vol] 105 mmol/L Normal 98-107 [facility] Comment on above: Performed By: #### C MP, TSH, LIPID #### [facility] [address] [address] [address] Eliza Barnes CO2 [Moles/Vol] 29.5 mmol/L Normal 21.0-32.0 [facility] Comment on above: Performed By: #### C MP, TSH, LIPID #### [facility] [address] [place] [address] Dr. Eliza Barnes Creatinine [Mass/Vol] 1.02 mg/dL Normal 0.70-1.30 [facility] Comment on above: Performed By: #### C MP, TSH, LIPID #### [facility] [address] [place] [address] Dr. Eliza Barnes EGFR-AF LIBERIAN >60 Normal >=60 [facility] Comment on above: Performed By: #### C MP, TSH, LIPID #### [facility] [address] [place] [address] Dr. Eliza Barnes EGFR-NON AF LIBERIAN >60 Normal >=60 [facility] Comment on above: Performed By: #### C MP, TSH, LIPID #### [facility] [address] [place] [address] Dr. Eliza Barnes Globulin (S) [Mass/Vol] 4.0 g/dL Normal [facility] Comment on above: Performed By: #### C MP, TSH, LIPID #### [facility] [address] [place] [id number] Dr. Eliaz Barnes Glucose [Mass/Vol] 103 mg/dL Normal 74-106 [facility] Comment on above: Performed By: #### C MP, TSH, LIPID #### [facility] [address] [place] [address] Dr. Eliza Barnes Potassium [Moles/Vol] 3.9 mmol/L Normal 3.5-5.1 [facility] Comment on above: Performed By: #### C MP, TSH, LIPID #### [facility] [address] [place] [address] Dr. Eliza Barnes Protein [Mass/Vol] 7.8 g/dL Normal 6.4-8.2 [facility] Comment on above: Performed By: #### C MP, TSH, LIPID #### [facility] [address] [place] [address] Dr. Eliza Barnes Sodium [Moles/Vol] 142 mmol/L Normal 136-145 [facility] Comment on above: Performed By: #### C MP, TSH, LIPID #### [facility] [address] [place] [address] Dr. Eliza Barnes Urea nitrogen [Mass/Vol] 19.0 mg/dL Critically high 7.0-18.0 [facility] Comment on above: Performed By: #### C MP, TSH, LIPID #### [facility] [address] [place] [address] Dr. Eliza Barnes Urea nitrogen/Creatinine [Mass ratio] 18.6 mg/mg Normal [facility] Comment on above: Performed By: #### C MP, TSH, LIPID #### [facility] [address] [place] [address] Dr. Eliza Barnes TSHon 11-29-2021 TSH 3.463 uIU/mL Normal 0.358-3.740 [facility] Comment on above: Performed By: #### C MP, TSH, LIPID #### [facility] [address] [place] [address] Dr. Eliza Barnes [facility]on SARS-CoV-2 (COVID-19) RNA MANFRED+probe Ql (Unsp spec) Detected Critically abnormal NOT DETECTED [facility] Comment on above: Result Comment: This test is not yet approved or cleared by the [place] FDA. When there are no FDA-approved or cleared tests available, and other criteria are met, FDA can make tests available under an emergency access mechanism called an Emergency Use Authorization (EUA). The EUA for this test is supported by the [employer] of Health and Human Service's (HHS's) declaration [...] used). Performed By: #### C VDTBH #### [facility] [address] [place] [employer], [place] [id number] Dr. Eliza Barnes Covid-19 PCR ([facility])on 01-09 SARS-CoV-2 (COVID-19) RNA MANFRED+probe Ql (Unsp spec) Not detected Normal NOT DETECTED [facility] Comment on above: Result Comment: This test is not yet approved or cleared by the [place] FDA. When there are no FDA-approved or cleared tests available, and other criteria are met, FDA can make tests available under an emergency access mechanism called an Emergency Use Authorization (EUA). The EUA for this test is supported by the [place] of Health and Human Service's (HHS's) declaration [...] consistent with SARS-CoV-2. Performed By: #### C VDTBH #### [facility] [address] [place] [id number] Arun Mccoy Belinda 10-01-2017 PROGRESS HNO ID: [id number]: Wally Strange DeasyService: (none)Author Type: PhysicianType: Progress NotesFiled: 10/01/2017 3:12 [...] the management ofthis patient's care with the [employer], if applicable. I also havereviewed and agree with the assessment and plan as stated above and agreewith all of its relevant components.Wally Zimmer, [facility] 3:[address] [facility] Vital Signs Date Time Vital Sign Value Performing Clinician Facility 02-18-2024 11:37-0400 Body height 167.64 cm [facility] 02-18-2024 11:37-0400 Body mass index (BMI) [Ratio] 31 kg/m2 [facility] 02-18-2024 11:37-0400 Body weight 87.14 kg [facility] 02-18-2024 11:37-0400 Diastolic blood pressure 92 mm[Hg] [facility] 02-18-2024 11:37-0400 Heart rate 83 /min [facility] 02-18-2024 11:37-0400 Respiratory rate 12 /min [facility] 02-18-2024 11:37-0400 Systolic blood pressure 163 mm[Hg] [facility] 01-29-2024 08:43-0400 Body height 167.64 cm [facility] 01-29-2024 08:43-0400 Body mass index (BMI) [Ratio] 31 kg/m2 [facility] 01-29-2024 08:43-0400 Body weight 87.23 kg [facility] 01-29-2024 08:43-0400 Diastolic blood pressure 90 mm[Hg] [facility] 01-29-2024 08:43-0400 Heart rate 92 /min [facility] 01-29-2024 08:43-0400 Respiratory rate 16 /min [facility] 01-29-2024 08:43-0400 Systolic blood pressure 163 mm[Hg] [facility] 01-02-2024 09:38-0400 Body height 167.64 cm [facility] 01-02-2024 09:38-0400 Body mass index (BMI) [Ratio] 31 kg/m2 [facility] 01-02-2024 09:38-0400 Body weight 87.31 kg [facility] 01-02-2024 09:38-0400 Diastolic blood pressure 98 mm[Hg] [facility] 01-02-2024 09:38-0400 Heart rate 81 /min [facility] 01-02-2024 09:38-0400 Respiratory rate 12 /min [facility] 01-02-2024 09:38-0400 Systolic blood pressure 164 mm[Hg] [facility] 11-30-2022 11:00-0400 Body height 170.18 cm Asif Ball Other [facility] [employer] Other 11-30-2022 11:00-0400 Body mass index (BMI) [Ratio] 30.16 kg/m2 Asif Ball Other [facility] [employer] Other 11-30-2022 11:00-0400 Body weight 87.36 kg Asif Ball Other [facility] [employer] Other 11-30-2022 11:00-0400 Diastolic blood pressure 96 mm[Hg] Asif Ball Other [facility] [employer] Other 11-30-2022 11:00-0400 Respiratory rate 16 /min Asif Ball Other [facility] [employer] Other 11-30-2022 11:00-0400 Systolic blood pressure 153 mm[Hg] Asif Ball Other [employer] Other 11-24-2022 10:15-0400 Body height 170.18 cm Sofia Purvis Other [employer] Other 11-24-2022 10:15-0400 Body mass index (BMI) [Ratio] 29.94 kg/m2 Sofia Purvis Other [employer] Other 11-24-2022 10:15-0400 Body temperature 98.8 [degF] Sofia Purvis Other [employer] Other 11-24-2022 10:15-0400 Body weight 86.73 kg Sofia Purvis Other [employer] Other 11-24-2022 10:15-0400 Diastolic blood pressure 87 mm[Hg] Sofia uPrvis Other [facility] [employer] Other 11-24-2022 10:15-0400 Respiratory rate 20 /min Sofia Purvis Other [facility] [employer] Other 11-24-2022 10:15-0400 SaO2% (BldA) [Mass fraction] 92 % Sofia Purvis Other [facility] [employer] Other 11-24-2022 10:15-0400 Systolic blood pressure 142 mm[Hg] Sofia Purvis Other [employer] Other 11-21-2022 14:15-0400 Body height 170.18 cm Aziza Byrne Other [employer] Other 11-21-2022 14:15-0400 Body mass index (BMI) [Ratio] 30.38 kg/m2 Aziza Colemanheather Other [facility] [employer] Other 11-21-2022 14:15-0400 Body weight 88 kg Aziza Colemanheather Other [facility] [employer] Other 11-21-2022 14:15-0400 Diastolic blood pressure 100 mm[Hg] Aziza Nietovignesh Other [employer] Other 11-21-2022 14:15-0400 Systolic blood pressure 158 mm[Hg] Aziza Barraganbowen Other [employer] Other Encounters Encounter Date Encounter Type Care Provider Facility Start: 02-18-2024 End: 02-18-2024 ambulatory [facility] Work Phone: Start: 02-18-2024 End: 02-18-2024 Patient encounter procedure [facility] Physician [facility] Work Phone: Start: 01-29-2024 End: 01-29-2024 ambulatory [facility] Work Phone: Start: 01-29-2024 End: 01-29-2024 Patient encounter procedure [facility] Physician [facility] Work Phone: Start: 01-02-2024 End: 01-02-2024 ambulatory [facility] Work Phone: Start: 01-02-2024 End: 01-02-2024 Encounter for general adult medical examination without abnormal findings [facility] Start: 01-02-2024 End: 01-02-2024 Patient encounter procedure [facility] Work Phone: Start: 12-17-2023 Non-patient / Non-visit [facility] Work Phone: Start: 12-06-2023 Patient encounter status [facility] Start: 03-12-2023 End: 03-12-2023 ambulatory Asif Blevins Other [employer] Other Start: 03-12-2023 Telephone encounter Asif Blevins [facility] Start: 12-10-2022 End: 12-10-2022 ambulatory Asif Blevins Other [employer] Other Start: 12-10-2022 Telephone encounter Asif Blevins [facility] Start: 12-04-2022 End: 12-04-2022 ambulatory Asif Blevins Other [facility] [employer] Other Start: 12-04-2022 Telephone encounter Asif Blevins [facility] Start: 11-30-2022 End: 11-30-2022 ambulatory Asif Blevins Other [facility] Other Start: 11-30-2022 Encounter for genera l adult medical examination without abnormal findings Asif Blevins [facility] Start: 11-30-2022 Periodic preventive med est patient 40-64yrs Asif Blevins [facility] Start: 11-24-2022 End: 11-24-2022 ambulatory Sofia Purvis Other [employer] Other Start: 11-24-2022 Office outpatient vi sit 15 minutes Sofia Purvis [facility] Start: 11-21-2022 End: 11-21-2022 ambulatory Aziza Byrne Other [employer] Other Start: 11-21-2022 Office outpatient vi sit 15 minutes Aziza Byrne [facility] Start: 11-30-2021 Encounter for genera l adult medical examination without abnormal findings DR ASIF BLEVINS [facility] Start: 11-29-2021 End: 11-30-[address] ASIF BLEVINS Facility:[facility] Start: 11-29-2021 End: 11-30-2021 Encounter for general adult medical examination without abnormal findings DR ASIF BLEVINS Facility:[facility] Start: 11-28-2021 Adult health examination Marin Blevins Other [facility] Other Start: 06-14-2021 End: 06-14-2021 ambulatory VIRGEN JAIMES Facility:[facility] Start: 02-08-2021 Encounter for preprocedural laboratory examination DR DECLAN LLANOS [facility] Start: 02-08-2021 Encounter for other preprocedural examination DR DECLAN LLANOS [facility] Start: 02-03-2021 End: 02-03-[address] DECLAN LLANOS Facility:[facility] Start: 01-31-2021 End: 02-01-[address] DECLAN LLANOS Facility:[facility] Start: 01-31-2021 End: 02-01-2021 Encounter for preprocedural laboratory examination DR DECLAN LLANOS Facility:[facility] Start: 01-25-2021 End: 01-26-[address] DECLAN LLANOS Facility:[facility] Start: 01-25-2021 End: 01-26-2021 Encounter for other preprocedural examination DR DECLAN LLANOS Facility:[facility] Start: 10-01-2017 End: 10-28-2017 [facility] Procedures Date Procedure Procedure Detail Performing Clinician Start: 11-29-2021 PSA screening VIRGEN AGUDELO Comment on above: Performed By: #### [facility] #### [facility] [address] [place] [address] Dr. Eliza Barnes Depression screening Destiny Blevins Other Plan of Treatment Date Care Activity Detail Author XR Knee - left 4 Views [facility] Immunizations Immunization Date Immunization Notes Care Provider Fa miranda 07-07-2020 COVID-19 Joleen overton Other [facility] 06-08-2020 COVID-19 Joleen overton Other [facility] Payers Date Payer Category Payer Unknown [id number] 1965 Unknown [id number] [id number] [id number] 1965 Unknown [id number] 2.16.84 [id number] 1965 Unknown [id number] [id number] [id number] 1965 Unknown [id number] 2.16.84 [id number] 1965 Unknown [id number] 2.16.84 [id number] [id number] Social History Date Type Detail Facility Sex Assigned At [facility] [employer] Other Start: 11-30-2022 Tobacco smoking stat [facility] Never smoked tobacco (finding) [facility] Start: 1965 Sex Assigned At Male [facility] Clinical Notes 02-03-2021 to 12-04-2022 Note Date & Type Note Facility 12-04-2022 Evaluation note Encounter Date Diagnosis Assessment Notes Nov, Screening for colon cancer (ICD-10 - Z12.11) [facility] [employer] Other 06-23-2023 Evaluation note* Encounter Date Diagnosis Assessment Notes Treatment Notes Treatment Clinical Notes Nov, Wellness examination (ICD-10 - Z00.00) Healthy diet and exercise. Reviewed age-appropriate preventive testing recommended. 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 Nov, Screening PSA (prostate specific antigen) (ICD-10 - Z12.5) Yearly PSA Nov, Colon cancer screening (ICD-10 - Z12.11) DIscussed Cologuard vs colonoscopy [employer] Other 06-17-2023 Evaluation note* Encounter Date Diagnosis Assessment Notes Treatment Notes Treatment Clinical Notes Nov, Sore throat (ICD-10 - J02.9) Patient is concerned for strep throat. Rapid strep is negative. Discussed sore throat is likely related to postnasal drip causing inflammation. May use warm salt water gargles, topical throat sprays or throat lozenges, ibuprofen or Tylenol for discomfort. Nov, Acute nasopharyngiti s (ICD-10 - J00) Discussed with patient and [...] no improvement after 7 days of antibiotic. [facility] Other 06-14-2023 Evaluation note* Encounter Date Diagnosis Assessment Notes Treatment Notes Treatment Clinical Notes Nov, Viral upper respiratory illness (ICD-10 [...] verbalizes understanding and agreement with treatment plan. [employer] [facility] Other 08-27-2021 NoteOPERATIVE NOTE OPERATION DATE: 02/03/2021 PREOPERATIVE DIAGNOSIS: Incarcerated umbilical hernia. POSTOPERATIVE DIAGNOSIS: Incarcerated umbilical hernia (containing omentum). PROCEDURE PERFORMED: Incarcerated umbilical hernia repair with partial omentectomy of incarcerated omentum. SURGEON: Declan Llanos MD STORE FACILITY TECHNICIAN: STEPHANIE Keita. ANESTHESIA: General, 0.5% Marcaine for [...] taken to the PACU in fair condition.. [facility] Signed and Approved by: DR DECLAN LLANOS . 02/10/2021 06:37:00[facility] Other Evaluation note* Diagnosis Onset Date Resolution Status Hypothyroid acute Learning disability acute Wellness examination acute Screening PSA (prostate specific antigen) noneactive [facility] Work Phone: Evaluation note* Diagnosis Onset Date Resolution Status Elevated BP without diagnosis of hypertension acute Hypothyroid acute Learning disability acute Left knee pain acute Obesity acute Wellness examination acute Screening PSA (prostate specific antigen) noneactive Left hip pain acute Primary osteoarthritis of left hip acute [facility] Work Phone: Evaluation note* Diagnosis Onset Date Resolution Status Elevated BP without diagnosis of hypertension acute Hypothyroid acute Learning disability acute Left knee pain acute Obesity acute Wellness examination acute Screening PSA (prostate specific antigen) noneactive Left hip pain acute Primary osteoarthritis of left hip acute Left hip pain acute Primary osteoarthritis of left hip acute [facility] Work Phone: History general Narrative - Reported* Type Description Date Medical History Hypothyroid Surgical History hernia repair 2020 [employer] Other Hisehcd general Narrative - Reported* Type Description Date Medical History Hypothyroid Medical History Mental disability Medical History Adult hypothyroidism Surgical History hernia repair 2020 Hospitalization History SEE SURGICAL HX [facility] [employer] [facility] [employer] Other Summary Purpose Family History Relationship Condition Age at Onset Recorded Date/T raudel father Unknown Advance Directives Advance Directive Response Recorded Date/ Time Advance Directives No December 05 11:14am Chief Complaint and Reason for Visit Chief Complaint Wellness Reason for Visit Hypothyroid Learning disability Wellness examination Screening PSA (prostate specific antigen) Chief Complaint Wellness Leg pain/can't walk Reason for Visit Elevated BP without diagnosis of hypertension Hypothyroid Learning disability Left knee pain Obesity Wellness examination Screening PSA (prostate specific antigen) Left hip pain Primary osteoarthritis of left hip Chief Complaint Wellness Leg pain/can't walk 1 month/L Leg Pain Reason for Visit Elevated BP without diagnosis of hypertension Hypothyroid Learning disability Left knee pain Obesity Wellness examination Screening PSA (prostate specific antigen) Left hip pain Primary osteoarthritis of left hip Left hip pain Primary osteoarthritis of left hip Additional Source Comments (unrecognized sect ion and content) No Status Records FoundNo Status Records Found INFORMATION SOURCE (unrecogn ized section and content) DATE CREATED AUTHOR 11/27/2017 [facility] DATE CREATED AUTHOR AUTHOR'S CALLIE ATLUKE 12/01/2021 [facility] REASON FOR VISIT (unrecogniz ed section and content) Cough-COVID NegativeSORE THR OAT, STREPWELLNESSNo InformationLab Resultscologuard results Care Teams (unrecognized sec tion and content) Team Status: Active Member Role Status Dates Asif Ball , DO Primary Care Provider Active Team Status: Active Member Role Status Dates Asif Blevins , DO Primary Care Provide r, Attending Provider Active Start: December 17, 2023 Team Status: Inactive Member Role Status Lamont Blevins , DO Primary Care Provide r, Attending Provider Active Start: January 02, 2024 End: January 02, 2024 Team Status: Inactive Member Role Status Lamont Blevins , DO Primary Care Provide r, Attending Provider Active Start: January 29, 2024 End: January 29, 2024 Team Status: Inactive Member Role Status Lamont Blevins , DO Primary Care Provide r, Attending Provider Active Start: February 18, 2024 End: February 18, 2024 Goals (unrecognized section and content) Goals [...] BE BASED ON THE PRIMARY CLINICAL RECORDS. [facility] [employer] [facility]. provides no warranty or guarantee of the accuracy or completeness of information in this document.
--- NOTE | 2024-03-17 12:24 | XR_ITS ---
The [address] [address] Patient Name: HERB CARDENAS MRN: [id number] date: 1965 Sex: M Assigned Patient Location: CARD Current Patient Location: CARD Accession/Order Number: [id number] Exam Date: 03/17/2024 12:29 Report Date: 03/17/2024 16:22 At the request of: JULIÁN CARDONA Procedure: XR chest 2V EXAM: XR chest 2V CLINICAL INDICATION: z01.810-encounter for pre-operative cardiovascular clearance COMPARISON: None TECHNIQUE: 2 views of chest performed. FINDINGS: Lungs: No convincing focal infiltrates. No pleural effusion or pneumothorax. Heart: Cardiac and mediastinal contours are unremarkable. No overt pulmonary vascular congestion. Osseous structures: No acute abnormalities. XR/XR chest 2V IMPRESSION: No acute cardiopulmonary process. Electronically authenticated by: ISSA MISHRA Date: 03/17/2024 16:22
== END 2024-03-17 11:45 | disposition home or self-care (01) ==
LOC: CARD 11:46
PROVIDERS: PCP Internal Medicine; Visit Provider Student in an Organized Health Care Education/Training Program
DX: Z01.810 Encounter for preprocedural cardiovascular examination (principal); Z01.812 Encounter for preprocedural laboratory examination
CPT/HCPCS: 71046; 93005

== ENCOUNTER 2024-03-23 06:40 | Day surgery (SDC) | payer BC, SELFPAY ==
--- OUTSIDE RECORDS SUMMARY | 2024-03-23 06:43 | XMS_ITS | CCD ---
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; Translations: [OTH CUSTODIAL CURRENT DRUG THERAPY] Onset: 02-08-2021 Episodic Unclassified (1 source) CONTACT W/AND (SUSP) EXPOS COVID-19; Translations: [CONTACT W/AND (SUSP) EXPOS COVID-19] Onset: 06-14-2021 Results Test Name Value Interpretation Reference Range Facility Basophils Auto (Bld) [#/Vol] on 12-17-2023 Basophils (Bld) [#/Vol] 0.0 10 3/uL 0.0-0.1 [facility] Basophils/100 WBC Auto (Bld) on 12-17-2023 Basophils/100 WBC (Bld) 0.4 % 0.2-2.0 [facility] Cholesterol in LDL Calc [Mas s/Vol]on 12-17-2023 Cholesterol in LDL [Mass/Vol] 101.0 mg/dL [facility] Comment on above: <100 mg/dl [id number] 0-129 mg/dl NEAR OR ABOVE [id number] mg/dl BORDERLINE PORP227-364 mg/dl HIGH>190 mg/dl VERY HIGH Cholesterol in VLDL Calc [Ma ss/Vol]on 12-17-2023 Cholesterol in VLDL [Mass/Vol] 47.8 mg/dL [facility] Eosinophils/100 WBC Auto (Bl d)on 12-17-2023 Eosinophils/100 WBC (Bld) 2.1 % 0.9-7.0 [facility] Erythrocyte distribution wid th Auto (RBC) [Ratio]on 12-17-2023 Erythrocyte distribution width (RBC) [Ratio] 13.2 % 11.0-15.0 [facility] Estimated glomerular filtrat ion rate (GFR) non- Americanon 12-17-2023 GFR/1.73 sq M.predicted among non-blacks MDRD (S/P/Bld) [Vol rate/Area] 60 mL/min/{1.73_m2} >=60 [facility] Globulin Calc (S) [Mass/Vol] on 12-17-2023 Globulin (S) [Mass/Vol] 3.9 g/dL [facility] Glucose mean value [Mass/vol ume] in Blood Estimated from glycated hemoglobinon 12-17-2023 Average glucose Estimated from glycated hemoglobin (Bld) [Mass/Vol] 114 mg/dL [facility] Hematocrit Auto (Bld) [Volum e fraction]on 12-17-2023 Hematocrit (Bld) [Volume fraction] 45.5 % 42.0-54.0 [facility] Hemoglobin [Mass/volume] in Bloodon 12-17-2023 Hemoglobin (Bld) [Mass/Vol] 15.0 g/dL 14.0-18.0 [facility] Laboratory - Chemistry and C hemistry - challengeon 12-17-2023 Albumin [Mass/Vol] 3.8 g/dL 3.4-5.0 [facility] ALP [Catalytic activity/Vol] 109 U/L 46-116 [facility] ALT [Catalytic activity/Vol] 61 U/L 16-63 [facility] AST [Catalytic activity/Vol] 28 U/L 15-37 [facility] Bilirubin [Mass/Vol] 0.4 mg/dL 0.2-1.0 [facility] Calcium [Mass/Vol] 8.8 mg/dL 8.5-10.1 [facility] Chloride [Moles/Vol] 105 mmol/L 98-107 [facility] Cholesterol [Mass/Vol] 197 mg/dL <=200 [facility] Cholesterol in HDL [Mass/Vol] 49 mg/dL 40-60 [facility] Comment on above: > or =60 mg/dl - LOW CARDIOVASCULAR RISK<40 mg/dl - HIGH CARDIOVASCULAR RISK CO2 [Moles/Vol] 30.3 mmol/L 21.0-32.0 [facility] Creatinine [Mass/Vol] 1.24 mg/dL 0.70-1.30 [facility] GFR/1.73 sq M.predicted MDRD (S/P/Bld) [Vol rate/Area] mL/min/{1.73_m2} >=60 [facility] Glucose [Mass/Vol] 100 mg/dL 74-106 [facility] Potassium [Moles/Vol] 4.1 mmol/L 3.5-5.1 [facility] Protein [Mass/Vol] 7.7 g/dL 6.4-8.2 [facility] Sodium [Moles/Vol] 142 mmol/L 136-145 [facility] Triglyceride [Mass/Vol] 239 mg/dL High <=150 [facility] TSH Qn 2.480 m[IU]/L 0.358-3.740 [facility] Urea nitrogen [Mass/Vol] 20.0 mg/dL High 7.0-18.0 [facility] Urea nitrogen/Creatinine [Mass ratio] 16.1 mg/mg [facility] Laboratory - Hematology and Cell countson 12-17-2023 HbA1c (Bld) [Mass fraction] 5.6 % 4.5-6.2 [facility] Comment on above: ADA RECOMMENDED LIMI T 4.0 - 6.0ADA THERAPEUTIC TARGET < 7.0ACTION SUGGESTED> 7.0 Immature granulocytes/100 WBC (Bld) 0.6 % High 0.0-0.5 [facility] Leukocytes [#/volume] correc arthur for nucleated erythrocytes in Blood by Automated counon 12-17-2023 WBC corrected for nucl RBC Auto (Bld) [#/Vol] 10.5 10 3/uL 4.0-11.0 [facility] Lymphocytes Auto (Bld) [#/Vo l]on 12-17-2023 Lymphocytes (Bld) [#/Vol] 2.4 10 3/uL 1.2-3.8 [facility] Lymphocytes/100 WBC Auto (Bl d)on 12-17-2023 Lymphocytes/100 WBC (Bld) 23.2 % 20.5-60.0 [facility] MCH Auto (RBC) [Entitic mass ]on 12-17-2023 MCH (RBC) [Entitic mass] 28.7 pg 25.9-34.0 [facility] MCHC Auto (RBC) [Mass/Vol]on 12-17-2023 MCHC (RBC) [Mass/Vol] 33.0 g/dL 29.9-35.2 [facility] MCV Auto (RBC) [Entitic vol] on 12-17-2023 MCV (RBC) [Entitic vol] 87.0 fL 80.0-94.0 [facility] Monocytes Auto (Bld) [#/Vol] on 12-17-2023 Monocytes (Bld) [#/Vol] 1.0 10 3/uL High 0.3-0.8 [facility] Monocytes/100 WBC Auto (Bld) on 12-17-2023 Monocytes/100 WBC (Bld) 9.4 % 1.7-12.0 [facility] Neutrophils Auto (Bld) [#/Vo l]on 12-17-2023 Neutrophils (Bld) [#/Vol] 6.8 10 3/uL High 1.4-6.5 [facility] Neutrophils/100 WBC Auto (Bl d)on 12-17-2023 Neutrophils/100 WBC (Bld) 64.3 % 43.0-75.0 [facility] No Panel Informationon 12-16 Eosinophils # (Auto) 0.2 10 3/uL 0.0-0.7 [facility] Immature Granulocyte # (Auto) 0.06 10 3/uL High 0.00-0.03 [facility] Prostate Specific Antigen Screen 0.46 ng/mL <=4.00 [facility] Platelet mean volume Auto (B ld) [Entitic vol]on 12-17-2023 Platelet mean volume (Bld) [Entitic vol] 9.2 fL Low 9.5-13.5 [facility] Platelets Auto (Bld) [#/Vol] on 12-17-2023 Platelets (Bld) [#/Vol] 214 10 3/uL 150-450 [facility] RBC Auto (Bld) [#/Vol]on RBC (Bld) [#/Vol] 5.23 10 6/uL 4.70-6.10 [facility] Serum or plasma albumin/glob ulin mass ratioon 12-17-2023 Albumin/Globulin [Mass ratio] 1.0 {ratio} [facility] Serum or plasma anion gap de terminationon 12-17-2023 Anion gap [Moles/Vol] 10.8 mmol/L [facility] Serum or plasma total choles terol/high density lipoprotein (HDL) cholesterol mass maury 12-17-2023 Cholesterol.total/C holesterol in HDL [Mass ratio] 4.0 {ratio} [facility] Comment on above: 3.3 - 4.4 LOW RISK4. 4 - 7.1 AVERAGE RISK7.1 - 11.0 MODERATE RISK>11.0 HIGH RISK Quick Strep[facility] 11-24-2022 S. pyogenes Org specific cx Ql (Throat) Negative [facility] Other Quick Strep [facility] [employer] Other CBC AUTO DIFFon 11-29-2021 BASO # 0.1 103/ul Normal 0.0-0.1 [facility] Comment on above: Performed By: #### C BC #### [facility] [address] [place] [address] Dr. Eliza Barnes Basophils/100 WBC (Bld) 0.6 % Normal 0.2-2.0 [facility] Comment on above: Performed By: #### C BC #### [facility] [address] [place] [address] Dr. Eliza Barnes EO # 0.1 103/ul Normal 0.0-0.7 [facility] Comment on above: Performed By: #### C BC #### [facility] [address] [place] [address] Dr. Eliza Barnes Eosinophils/100 WBC (Bld) 1.7 % Normal 0.9-7.0 [facility] Comment on above: Performed By: #### C BC #### [facility] [address] [place] [address] Dr. Eliza Barnes Erythrocyte distribution width (RBC) [Ratio] 13.6 % Normal 11.0-15.0 [facility] Comment on above: Performed By: #### C BC #### [facility] [address] [place] [address] Dr. Eliza Barnes Hematocrit (Bld) [Volume fraction] 48.3 % Normal 42.0-54.0 [facility] Comment on above: Performed By: #### C BC #### [facility] [address] [place] [address] Dr. Eliza Barnes Hemoglobin (Bld) [Mass/Vol] 15.7 g/dL Normal 14.0-18.0 [facility] Comment on above: Performed By: #### C BC #### [facility] [address] [place] [address] Dr. Eliza Barnes IG # 0.09 10e3/ul Critically high 0.00-0.03 [facility] Comment on above: Performed By: #### C BC #### [facility] [address] [place] [address] Dr. Eliza Barnes IG % 1.1 % Critically high 0.0-0.5 [facility] Comment on above: Performed By: #### C BC #### [facility] [address] [place] [address] Dr. Eliza Barnes LYMPH # 2.1 103/ul Normal 1.2-3.8 [facility] Comment on above: Performed By: #### C BC #### [facility] [address] [place] [address] Dr. Eliza Barnes Lymphocytes/100 WBC (Bld) 25.7 % Normal 20.5-60.0 [facility] Comment on above: Performed By: #### C BC #### [facility] [address] [place] [address] Dr. Eliza Barnes MANUAL DIFF REQ NO Normal [facility] Comment on above: Performed By: #### C BC #### [facility] [address] [place] [address] Dr. Eliza Barnes MCH (RBC) [Entitic mass] 28.3 pg Normal 25.9-34.0 [facility] Comment on above: Performed By: #### C BC #### [facility] [address] [address] [address] Eliza Barnes MCHC (RBC) [Mass/Vol] 32.5 g/dL Normal 29.9-35.2 [facility] Comment on above: Performed By: #### C BC #### [facility] [address] [address] [address] Eliza Barnes MCV (RBC) [Entitic vol] 87.0 fL Normal 80.0-94.0 [facility] Comment on above: Performed By: #### C BC #### [facility] [address] [place] [address] Dr. Eliza Barnes MONO # 0.7 103/ul Normal 0.3-0.8 [facility] Comment on above: Performed By: #### C BC #### [facility] [address] [place] [address] Dr. Eliza Barnes Monocytes/100 WBC (Bld) 8.8 % Normal 1.7-12.0 [facility] Comment on above: Performed By: #### C BC #### [facility] [address] [place] [address] Dr. Eliza Barnes NEUT # 5.2 103/ul Normal 1.4-6.5 [facility] Comment on above: Performed By: #### C BC #### [facility] [address] [place] [address] Dr. Eliza Barnes Neutrophils/100 WBC (Bld) 62.1 % Normal 43.0-75.0 [facility] Comment on above: Performed By: #### C BC #### [facility] [address] [place] [address] Dr. Eliza Barnes Platelet mean volume (Bld) [Entitic vol] 9.3 fL Critically low 9.5-13.5 [facility] Comment on above: Performed By: #### C BC #### [facility] [address] [place] [address] Dr. Eliza Barnes PLT 218 103/ul Normal 150-450 [facility] Comment on above: Performed By: #### C BC #### [facility] [address] [address] [address] Eliza Barnes RBC 5.55 106/ul Normal 4.70-6.10 [facility] Comment on above: Performed By: #### C BC #### [facility] [address] [place] [address] Dr. Eliza Barnes WBC 8.3 103/ul Normal 4.0-11.0 [facility] Comment on above: Performed By: #### C BC #### [facility] [address] [place] [address] Dr. Eliza Barnes GLYCOHEMOGLOBIN A1Con 2021 ADA RECOMMENDATION SEE BELOW Normal [facility] Comment on above: Result Comment: ADA RECOMMENDED LIMIT 4.0 - 6.0 ADA THERAPEUTIC TARGET < 7.0 ACTION SUGGESTED > 7.0 Performed By: #### A 1C #### [facility] [address] [place] [address] Dr. Eliza Barnes Glucose [Mass/Vol] 114 mg/dL Normal [facility] Comment on above: Performed By: #### A 1C #### [facility] [address] [place] [address] Dr. Eliza Barnes HbA1c (Bld) [Mass fraction] 5.6 % Normal 4.5-6.2 [facility] Comment on above: Performed By: #### A 1C #### [facility] [address] [place] [address] Dr. Eliza Barnes LIPID PROFILEon 11-29-2021 CHOL-HDL RATIO NORM SEE BELOW Normal [facility] Comment on above: Result Comment: 3.3 - 4.4 LOW RISK 4.4 - 7.1 AVERAGE RISK 7.1 - 11.0 MODERATE RISK >11.0 HIGH RISK Performed By: #### C MP, TSH, LIPID #### [facility] [address] [place] [address] Dr. Eliza Barnes Cholesterol [Mass/Vol] 210 mg/dL Critically high <=200 [facility] Comment on above: Performed By: #### C MP, TSH, LIPID #### [facility] [address] [address] [address] Eliza Barnes Cholesterol in HDL [Mass/Vol] 52 mg/dL Normal 40-60 [facility] Comment on above: Performed By: #### C MP, TSH, LIPID #### [facility] [address] [address] [address] Eliza Barnes Cholesterol in LDL [Mass/Vol] 121.2 mg/dL Normal [facility] Comment on above: Performed By: #### C MP, TSH, LIPID #### [facility] [address] [address] [address] Eliza Barnes Cholesterol.total/C holesterol in HDL [Mass ratio] 4.0 {ratio} Normal [facility] Comment on above: Performed By: #### C MP, TSH, LIPID #### [facility] [address] [place] [address] Dr. Eliza Barnes HDL NORMAL > or = 60 mg/dl - LO W CARDIOVASCULAR RISK <40 mg/dl - HIGH CARDIOVASCULAR RISK Normal [facility] Comment on above: Performed By: #### C MP, TSH, LIPID #### [facility] [address] [address] [address] Eliza Barnes LDL CALC NORMAL SEE BELOW Normal [facility] Comment on above: Result Comment: <100 mg/dl OPTIMAL 100 - 129 mg/dl NEAR OR ABOVE OPTIMAL 130 - 159 mg/dl BORDERLINE HIGH 160 - 189 mg/dl HIGH >190 mg/dl VERY HIGH Performed By: #### C MP, TSH, LIPID #### [facility] [address] [address] [address] Eliza Barnes Triglyceride [Mass/Vol] 184 mg/dL Critically high <=150 [facility] Comment on above: Performed By: #### C MP, TSH, LIPID #### [facility] [address] [address] [address] Eliza Barnes VLDL CALC 36.8 mg/dL Normal [facility] Comment on above: Performed By: #### C MP, TSH, LIPID #### [facility] [address] [address] [address] Eliza Barnes PROF 14(COMP METB)on 022 Albumin [Mass/Vol] 3.8 g/dL Normal 3.4-5.0 [facility] Comment on above: Performed By: #### C MP, TSH, LIPID #### [facility] [address] [address] [address] Eliza Barnes Albumin/Globulin [Mass ratio] 0.9 {ratio} Normal [facility] Comment on above: Performed By: #### C MP, TSH, LIPID #### [facility] [address] [address] [address] Eliza Barnes ALP [Catalytic activity/Vol] 99 U/L Normal 46-116 [facility] Comment on above: Performed By: #### C MP, TSH, LIPID #### [facility] [address] [address] [address] Eliza Barnes ALT [Catalytic activity/Vol] 81 U/L Critically high 16-63 [facility] Comment on above: Performed By: #### C MP, TSH, LIPID #### [facility] [address] [address] [address] Eliza Barnes Anion gap [Moles/Vol] 11.4 mmol/L Normal [facility] Comment on above: Performed By: #### C MP, TSH, LIPID #### [facility] [address] [address] [address] Eliza Barnes AST [Catalytic activity/Vol] 31 U/L Normal 15-37 [facility] Comment on above: Performed By: #### C MP, TSH, LIPID #### [facility] [address] [address] [address] Eliza Barnes Bilirubin [Mass/Vol] 0.6 mg/dL Normal 0.2-1.0 [facility] Comment on above: Performed By: #### C MP, TSH, LIPID #### [facility] [address] [address] [address] Eliza Barnes Calcium [Mass/Vol] 8.9 mg/dL Normal 8.5-10.1 [facility] Comment on above: Performed By: #### C MP, TSH, LIPID #### [facility] [address] [address] [address] Eliza Barnes Chloride [Moles/Vol] 105 mmol/L Normal 98-107 [facility] Comment on above: Performed By: #### C MP, TSH, LIPID #### [facility] [address] [address] [address] Eliza Barnes CO2 [Moles/Vol] 29.5 mmol/L Normal 21.0-32.0 [facility] Comment on above: Performed By: #### C MP, TSH, LIPID #### [facility] [address] [place] [address] Dr. Eliza Barnes Creatinine [Mass/Vol] 1.02 mg/dL Normal 0.70-1.30 [facility] Comment on above: Performed By: #### C MP, TSH, LIPID #### [facility] [address] [place] [address] Dr. Eliza Barnes EGFR-AF CITIZ[place] >60 Normal >=60 [facility] Comment on above: Performed By: #### C MP, TSH, LIPID #### [facility] [address] [place] [address] Dr. Eliza Barnes EGFR-NON AF CITIZEN [place] >60 Normal >=60 [facility] Comment on above: Performed By: #### C MP, TSH, LIPID #### [facility] [address] [place] [address] Dr. Eliza Barnes Globulin (S) [Mass/Vol] 4.0 g/dL Normal [facility] Comment on above: Performed By: #### C MP, TSH, LIPID #### [facility] [address] [place] [address] Dr. Eliza Barnes Glucose [Mass/Vol] 103 mg/dL Normal 74-106 [facility] Comment on above: Performed By: #### C MP, TSH, LIPID #### [facility] [address] [place] [address] Dr. Eliza Barnes Potassium [Moles/Vol] 3.9 mmol/L Normal 3.5-5.1 [facility] Comment on above: Performed By: #### C MP, TSH, LIPID #### [facility] [address] [place] [address] Dr. Eliza Barnes Protein [Mass/Vol] 7.8 g/dL Normal 6.4-8.2 [facility] Comment on above: Performed By: #### C MP, TSH, LIPID #### [facility] [address] [place] [address] Dr. Eliza Barnes Sodium [Moles/Vol] 142 mmol/L Normal 136-145 [facility] Comment on above: Performed By: #### C MP, TSH, LIPID #### [facility] [address] [place] [address] Dr. Eliza Barnes Urea nitrogen [Mass/Vol] 19.0 mg/dL Critically high 7.0-18.0 [facility] Comment on above: Performed By: #### C MP, TSH, LIPID #### [facility] [address] [place] [address] Dr. Eliza Barnes Urea nitrogen/Creatinine [Mass ratio] 18.6 mg/mg Normal [facility] Comment on above: Performed By: #### C MP, TSH, LIPID #### [facility] [address] [place] [address] Dr. Eliza Barnes TSHon 11-29-2021 TSH 3.463 uIU/mL Normal 0.358-3.740 [facility] Comment on above: Performed By: #### C MP, TSH, LIPID #### [facility] [address] [place] [address] Dr. Eliza Barnes [facility]19 PCR [facility]on SARS-CoV-2 (COVID-19) RNA MANFRED+probe Ql (Unsp spec) Detected Critically abnormal NOT DETECTED [facility] Comment on above: Result Comment: This test is not yet approved or cleared by the [place] FDA. When there are no FDA-approved or cleared tests available, and other criteria are met, FDA can make tests available under an emergency access mechanism called an Emergency Use Authorization (EUA). The EUA for this test is supported by the [employer] Managing Director of Health and Human Service's (HHS's) declaration [...] used). Performed By: #### C VDTBH #### [facility] [address] [place], [place] [address] Dr. Eliza Barnes Covid-19 PCR ([facility])on 01-09 SARS-CoV-2 (COVID-19) RNA MANFRED+probe Ql (Unsp spec) Not detected Normal NOT DETECTED [facility] Comment on above: Result Comment: This test is not yet approved or cleared by the [place] FDA. When there are no FDA-approved or cleared tests available, and other criteria are met, FDA can make tests available under an emergency access mechanism called an Emergency Use Authorization (EUA). The EUA for this test is supported by the [employer] Managing Director of Health and Human Service's (HHS's) declaration [...] SARS-CoV-2. Performed By: #### C VDTBH #### [facility] [address] [place] [id number] Arun Mccoy Belinda 10-01-2017 PROGRESS HNO ID: [id number]: Wally Strange DeasyService: (none)Author Type: PhysicianType: Progress [...] the management ofthis patient's care with the Director Of Field Service, if applicable. I also havereviewed and agree with the assessment and plan as stated above and agreewith all of its relevant components.Wally Zimmer, [facility] 3[facility] [facility] Vital Signs Date Time Vital Sign Value Performing Clinician Facility 02-18-2024 11:37-0400 Body height 167.64 cm [facility] 02-18-2024 11:37-0400 Body mass index (BMI) [Ratio] 31 kg/m2 [facility] 02-18-2024 11:37-0400 Body weight 87.14 kg [facility] 02-18-2024 11:37-0400 Diastolic blood pressure 92 mm[Hg] [facility] 02-18-2024 11:37-0400 Heart rate 83 /min [facility] 02-18-2024 11:37-0400 Respiratory rate 12 /min [facility] 02-18-2024 11:37-0400 Systolic blood pressure 163 mm[Hg] [facility] 01-29-2024 08:43-0400 Body height 167.64 cm [facility] 01-29-2024 08:43-0400 Body mass index (BMI) [Ratio] 31 kg/m2 [facility] 01-29-2024 08:43-0400 Body weight 87.23 kg [facility] 01-29-2024 08:43-0400 Diastolic blood pressure 90 mm[Hg] [facility] 01-29-2024 08:43-0400 Heart rate 92 /min [facility] 01-29-2024 08:43-0400 Respiratory rate 16 /min [facility] 01-29-2024 08:43-0400 Systolic blood pressure 163 mm[Hg] [facility] 01-02-2024 09:38-0400 Body height 167.64 cm [facility] 01-02-2024 09:38-0400 Body mass index (BMI) [Ratio] 31 kg/m2 [facility] 01-02-2024 09:38-0400 Body weight 87.31 kg [facility] 01-02-2024 09:38-0400 Diastolic blood pressure 98 mm[Hg] [facility] 01-02-2024 09:38-0400 Heart rate 81 /min [facility] 01-02-2024 09:38-0400 Respiratory rate 12 /min [facility] 01-02-2024 09:38-0400 Systolic blood pressure 164 mm[Hg] [facility] 11-30-2022 11:00-0400 Body height 170.18 cm Asif Ball Other [facility] [employer] Other 11-30-2022 11:00-0400 Body mass index (BMI) [Ratio] 30.16 kg/m2 Asif Ball Other [facility] [employer] Other 11-30-2022 11:00-0400 Body weight 87.36 kg Asif Ball Other [facility] [employer] Other 11-30-2022 11:00-0400 Diastolic blood pressure 96 mm[Hg] Asif Ball Other [facility] Other 11-30-2022 11:00-0400 Respiratory rate 16 /min Asif Ball Other [facility] [employer] Other 11-30-2022 11:00-0400 Systolic blood pressure 153 mm[Hg] Asif Ball Other [employer] Other 11-24-2022 10:15-0400 Body height 170.18 cm Sofia Purvis Other [employer] Other 11-24-2022 10:15-0400 Body mass index (BMI) [Ratio] 29.94 kg/m2 Sofia Purvis Other [employer] Other 11-24-2022 10:15-0400 Body temperature 98.8 [degF] Sofia Purvis Other [employer] Other 11-24-2022 10:15-0400 Body weight 86.73 kg Sofia Purvis Other [employer] Other 11-24-2022 10:15-0400 Diastolic blood pressure 87 mm[Hg] Sofia Purvis Other [employer] Other 11-24-2022 10:15-0400 Respiratory rate 20 /min Sofia Purvis Other [employer] Other 11-24-2022 10:15-0400 SaO2% (BldA) [Mass fraction] 92 % Sofia Purvis Other [employer] Other 11-24-2022 10:15-0400 Systolic blood pressure 142 mm[Hg] Sofia Purvis Other [employer] Other 11-21-2022 14:15-0400 Body height 170.18 cm Aziza Byrne Other [employer] Other 11-21-2022 14:15-0400 Body mass index (BMI) [Ratio] 30.38 kg/m2 Aziza Colemanheather Other [employer] Other 11-21-2022 14:15-0400 Body weight 88 kg Aziza Colemanheather Other [facility] Other 11-21-2022 14:15-0400 Diastolic blood pressure 100 mm[Hg] Aziza Nietovignesh Other [employer] Other 11-21-2022 14:15-0400 Systolic blood pressure 158 mm[Hg] Aziza Barraganbowen Other [employer] Other Encounters Encounter Date Encounter Type Care Provider Facility Start: 02-18-2024 End: 02-18-2024 ambulatory [facility] Work Phone: Start: 02-18-2024 End: 02-18-2024 Patient encounter procedure [facility] Work Phone: Start: 01-29-2024 End: 01-29-2024 ambulatory [facility] Work Phone: Start: 01-29-2024 End: 01-29-2024 Patient encounter procedure [facility] Work Phone: Start: 01-02-2024 End: 01-02-2024 ambulatory [facility] Work Phone: Start: 01-02-2024 End: 01-02-2024 Encounter for general adult medical examination without abnormal findings [facility] Start: 01-02-2024 End: 01-02-2024 Patient encounter procedure [facility] Work Phone: Start: 12-17-2023 Non-patient / Non-visit [facility] Work Phone: Start: 12-06-2023 Patient encounter status [facility] Start: 03-12-2023 End: 03-12-2023 ambulatory Asif Blevins Other [employer] Other Start: 03-12-2023 Telephone encounter Asif Blevins [facility] Start: 12-10-2022 End: 12-10-2022 ambulatory Asif Blevins Other [employer] Other Start: 12-10-2022 Telephone encounter Asif Blevins [facility] Start: 12-04-2022 End: 12-04-2022 ambulatory Asif Blevins Other [employer] Other Start: 12-04-2022 Telephone encounter Asif Blevins [facility] Start: 11-30-2022 End: 11-30-2022 ambulatory Asif Blevins Other [employer] Other Start: 11-30-2022 Encounter for genera l adult medical examination without abnormal findings Asif Blevins [facility] Start: 11-30-2022 Periodic preventive med est patient 40-64yrs Asif Blevins [facility] Start: 11-24-2022 End: 11-24-2022 ambulatory Sofia Purvis Other [employer] Other Start: 11-24-2022 Office outpatient vi sit 15 minutes Sofia Purvis [facility] Start: 11-21-2022 End: 11-21-2022 ambulatory Aziza Byrne Other [employer] Other Start: 11-21-2022 Office outpatient vi sit 15 minutes Aziza Byrne [facility] Start: 11-30-2021 Encounter for genera l adult medical examination without abnormal findings DR ASIF BLEVINS [facility] Start: 11-29-2021 End: 11-30-[address] ASIF BLEVINS Facility:[facility]1 Start: 11-29-2021 End: 11-30-2021 Encounter for general adult medical examination without abnormal findings DR ASIF BLEVINS Facility:[facility] Start: 11-28-2021 Adult health examination Marin Blevins Other [employer] Other Start: 06-14-2021 End: 06-14-2021 ambulatory VIRGEN JAIMES Facility:[facility] Start: 02-08-2021 Encounter for preprocedural laboratory examination DR DECLAN LLANOS [facility] Start: 02-08-2021 Encounter for other preprocedural examination DR DECLAN LLANOS [facility] Start: 02-03-2021 End: 02-03-[address] DECLAN LLANOS Facility:[facility] Start: 01-31-2021 End: 02-01-[address] DECLAN LLANOS Facility:[facility] Start: 01-31-2021 End: 02-01-2021 Encounter for preprocedural laboratory examination DR DECLAN LLANOS Facility:[facility] Start: 01-25-2021 End: 01-26-[address] DECLAN LLANOS Facility:[facility] Start: 01-25-2021 End: 01-26-2021 Encounter for other preprocedural examination DR DECLAN LLANOS Facility:[facility] Start: 10-01-2017 End: 10-28-2017 [facility] Procedures Date Procedure Procedure Detail Performing Clinician Start: 11-29-2021 PSA screening VIRGEN AGUDELO Comment on above: Performed By: #### [facility] #### [facility] [address] [place] [address] Dr. Eliza Barnes Depression screening Destiny Blevins Other Plan of Treatment Date Care Activity Detail Author XR Knee - left 4 Views [facility] Immunizations Immunization Date Immunization Notes Care Provider Fa miranda 07-07-2020 COVID-19 Joleen overton Other [facility] 06-08-2020 COVID-19 Joleen overton Other [facility] Payers Date Payer Category Payer Unknown [id number] 1965 Unknown [id number] 2.16.84 [id number] 1965 Unknown [id number] 2.16.84 [id number] 1965 Unknown [id number] 2.16.84 [id number] 1965 Unknown [id number] 2.16.84 [id number] 1965 Unknown [id number] 2.16.84 [id number] [id number] Social History Date Type Detail Facility Sex Assigned At [facility] Other Start: 11-30-2022 Tobacco smoking stat [facility] Never smoked tobacco (finding) [facility] Start: 1965 Sex Assigned At Male F [facility] Clinical Notes 02-03-2021 to 12-04-2022 Note Date & Type Note Facility 12-04-2022 Evaluation note Encounter Date Diagnosis Assessment Notes Nov, Screening for colon cancer (ICD-10 - Z12.11) [facility] Other 06-23-2023 Evaluation note* Encounter Date Diagnosis Assessment Notes Treatment Notes Treatment Clinical Notes Nov, Wellness examination (ICD-10 - Z00.00) Healthy diet and exercise. Reviewed age-appropriate preventive testing recommended. 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 Nov, Screening PSA (prostate specific antigen) (ICD-10 - Z12.5) Yearly PSA Nov, Colon cancer screening (ICD-10 - Z12.11) DIscussed Cologuard vs colonoscopy [employer] Other 06-17-2023 Evaluation note* Encounter Date Diagnosis [...] no improvement after 7 days of antibiotic. [employer] Other 06-14-2023 Evaluation note* Encounter Date Diagnosis [...] verbalizes understanding and agreement with treatment plan. [employer] Other 08-27-2021 NoteOPERATIVE NOTE OPERATION DATE: 02/03/2021 PREOPERATIVE DIAGNOSIS: Incarcerated umbilical hernia. POSTOPERATIVE DIAGNOSIS: Incarcerated umbilical hernia (containing omentum). PROCEDURE PERFORMED: Incarcerated umbilical hernia repair with partial omentectomy of incarcerated omentum. SURGEON: Declan Llanos MD CONTRACT SPECIALIST: STEPHANIE Keita. ANESTHESIA: General, 0.5% Marcaine for [...] taken to the PACU in fair condition.. [facility] Signed and Approved by: DR DECLAN LLANOS . 02/10/2021 06:37[facility]00[facility] Other Evaluation note* Diagnosis Onset Date Resolution Status Hypothyroid acute Learning disability acute Wellness examination acute Screening PSA (prostate specific antigen) noneactive [facility] Work Phone: Evaluation note* Diagnosis Onset Date Resolution Status Elevated BP without diagnosis of hypertension acute Hypothyroid acute Learning disability acute Left knee pain acute Obesity acute Wellness examination acute Screening PSA (prostate specific antigen) noneactive Left hip pain acute Primary osteoarthritis of left hip acute [facility] Work Phone: Evaluation note* Diagnosis Onset Date Resolution Status Elevated BP without diagnosis of hypertension acute Hypothyroid acute Learning disability acute Left knee pain acute Obesity acute Wellness examination acute Screening PSA (prostate specific antigen) noneactive Left hip pain acute Primary osteoarthritis of left hip acute Left hip pain acute Primary osteoarthritis of left hip acute [facility] Work Phone: History general Narrative - Reported* Type Description Date Medical History Hypothyroid Surgical History hernia repair 2020 [employer] Other Hiscmmd general Narrative - Reported* Type Description Date Medical History Hypothyroid Medical History Mental disability Medical History Adult hypothyroidism Surgical History hernia repair 2020 Hospitalization History SEE SURGICAL HX [facility] Other Summary Purpose Family History Relationship Condition Age at Onset Recorded Date/T rauedl father Unknown Advance Directives Advance Directive Response [...] CREATED AUTHOR AUTHOR'S CALLIE ATLUKE 12/01/2021 [facility] REASON FOR VISIT (unrecogniz ed [...] BE BASED ON THE PRIMARY CLINICAL RECORDS. [facility] [employer] [facility] provides no warranty or guarantee of the accuracy or completeness of information in this document.
[2024-03-23 06:58] VITALS: BP 163/108; PULSE 90; TEMP 36.1; O2SAT 98; BMI 30.5
[2024-03-23] MEDS: 0.9 % SODIUM CHLORIDE 500 ML 50 ML IV (07:16)
[2024-03-23] MEDS: IOHEXOL 240 MG/ML - 10 ML VIAL INJ (08:12)
[2024-03-23] MEDS: METHYLPREDNISOLONE ACETATE 80 MG/ML VIAL INJ (08:12)
[2024-03-23] MEDS: BUPIVACAINE HCL 0.25% PF 25 MG/10 ML VIAL 4 ML INJ (08:12)
[2024-03-23 08:19] VITALS: BP 115/83; PULSE 88; TEMP 36.4; O2SAT 94
[2024-03-23 08:39] VITALS: BP 134/87; PULSE 85; O2SAT 96
[2024-03-23 08:49] VITALS: BP 159/82; PULSE 80; O2SAT 97
--- NOTE | 2024-03-23 12:23 | P.ORPRC_ITS ---
Procedure Note Date of procedure: 03/23/24 Pre-op diagnosis: Left hip osteoarthritis Post-op diagnosis: same as pre-op Procedure: Patient is a pleasant 59-year-old male presenting today for left hip IA injection. He has a history of left hip osteoarthritis. Has not tried any treatment yet. We have discussed intra-articular injection with corticosteroid. Did discuss risk and benefits of the surgery. Informed consent was obtained. No guarantees made. Patient was taken back to the operative suite. Transferred over to the hospital bed. He did not underwent anesthesia sedation without any complication. We then proceeded to prep the left hip with Betadine. We had a timeout and the patient, procedure, operative side were confirmed. We then proceeded with a 18- gauge spinal needle under fluoroscopic guidance. The needle was advanced down to the femoral neck. Once contact was made with the femoral neck we proceeded to insert radiopaque dye. The dye was noted on fluoroscopy views. Following this we then noticed there was some joint fluid coming out of the needle. We then proceeded to inject a solution of 2 cc 0.25% Marcaine plain 80 mg Depo- Medrol. This was confirmed with fluoroscopy. The needle was then removed. A Band-Aid was applied. Patient was awoken from anesthesia and taken the PACU in stable condition. Anesthesia: MAC Surgeon: John Carlson Estimated blood loss (mL): 1 IV fluids (mL): 100 Urine output (mL): 0 Pathology: none sent Condition: stable Disposition: same day
== END 2024-03-23 09:10 | disposition home or self-care (01) ==
PROVIDERS: PCP Internal Medicine; Visit Provider Student in an Organized Health Care Education/Training Program
PROC: (CPT 1992; principal; 2024-03-23 08:00)
DX: M16.12 Unilateral primary osteoarthritis, left hip (principal); E03.9 Hypothyroidism, unspecified
CPT/HCPCS: 20610; 76000; J0665; J1010; J2704; Q9966

== ENCOUNTER 2024-05-21 16:15 | Outpatient (RCR) | payer BC, SELFPAY | END 2024-06-09 14:48 | disposition home or self-care (01) | LOC: PT 16:15 | PROVIDERS: PCP Internal Medicine; Visit Provider Student in an Organized Health Care Education/Training Program | DX: M16.12 Unilateral primary osteoarthritis, left hip (principal) | CPT/HCPCS: 97110; 97161 ==

== ENCOUNTER 2024-06-10 08:41 | Outpatient (RCR) | payer BC, SELFPAY | END 2024-07-03 08:07 | disposition home or self-care (01) | LOC: PT 08:41 | PROVIDERS: PCP Internal Medicine; Visit Provider Student in an Organized Health Care Education/Training Program | DX: M16.12 Unilateral primary osteoarthritis, left hip (principal) | CPT/HCPCS: 97110 ==

== ENCOUNTER 2024-09-24 13:52 | Outpatient (OUT) | payer BC, SELFPAY ==
--- NOTE | 2024-09-24 16:46 | P.WCHP_ITS ---
Wound Care H&P: HPI History of Present Illness Narrative: The patient is a pleasant 59-year-old gentleman with history of hypothyroidism who presents for routine nail care. The patient states that is difficult to trim his nails due to limited mobility. He has no complaints at this time but he does admit to occasional burning and paresthesias in his feet. [facility] Medical History (Updated 09/24/24 @ 16:51 by CAT Berrios) Hypothyroidism ?E03.9 - Hypothyroidism, unspecified (ICD-10) Pain in left hip ?M25.552 - Pain in left hip (ICD-10) Surgical History (Updated 03/20/24 @ 15:22 by Jalyn Friend RN) H/O umbilical hernia repair ?Z98.890 - Other specified postprocedural states (ICD-10) ?Z87.19 - Personal history of other diseases of the digestive system (ICD-10) Family History (Updated 03/20/24 @ 15:24 by Jalyn Friend RN) Other Family history of CHF (congestive heart failure) Family history of cancer Family history of diabetes mellitus Family history of hypertension Family history of myocardial infarction Social History (Updated 03/20/24 @ 15:26 by Jalyn Friend RN) Within the past year, how often did you have a drink containing alcohol: never Score interpretation: A score less than 4 is consistent with normal alcohol consumption. Smoking status: Never smoker Second hand tobacco smoke exposure: No Non-prescribed substance use: denies use Previous occupational history: [employer] Highest level of school completed/degree received: high school graduate Meds Home Medications and Allergies Home Medications ?Medication ?Instructions ?Recorded ?Confirmed ?Type levothyroxine 100 mcg tablet 100 mcg PO DAILY 03/20/24 03/23/24 History (Synthroid) meloxicam 7.5 mg tablet 7.5 mg PO DAILY 03/20/24 03/23/24 History Allergies Allergy/AdvReac Type Severity Reaction Status Date / Time No Known Drug Allergies Allergy Verified 03/20/24 15:15 Exam Narrative: Exam Narrative: Dermatologic: Toenails 1 through 10 are elongated, thickened, and mycotic. No ulcerative or preulcerative lesions are noted. Skin is diffusely dry Vascular: DP and PT pulses are 2/4 bilaterally. Digital hair is normal. Feet are warm to the touch. No edema noted. Neurologic: Achilles reflexes are 1/4 bilaterally. Vibratory sensation is intact. Protective sensation is decreased. Monofilament testing reveals the patient detected 0/5 areas tested on the right foot and 2/5 areas tested on the left. Musculoskeletal: No gross deformity. Range of motion and strength is within normal limits. Assessment and Plan Assessment and Plan (1) Ambulatory dysfunction: (2) Tinea unguium: (3) Disorder of nail due to another disorder: Plan Toenails 1 through 10 were sharply debrided without incident. Follow-up in 3 months. Acute Procedures Podiatry Nail Debridement Class B Findings Advanced trophic changes as evidenced by any three of the following: nail changes (thickening) Class C Findings Claudication: No Temperature changes: No Edema: No Nail debridement paresthesia (abnormal spontaneous sensations in the feet): Yes Burning: Yes Qualifies If: Qualifiers If:: A patient qualifies for nail debridement if they have: 1 class A finding (Q7) 2 class B findings (Q8) OR 1 class B & 2 class C findings in addition to a primary condition (Q9) Nail Procedure Nail Procedure Time out: Yes Nail procedure: other (nail debridement toes 1-10) Number of affected nails: 10 Location (toes): left and right Procedure successful: Yes Patient tolerated procedure: well and no complications Additional comments: Toenails 1 through 10 are sharply debrided without incident with nail nippers
== END 2024-09-24 13:53 | disposition home or self-care (01) ==
LOC: WC 13:52
PROVIDERS: PCP Internal Medicine; Visit Provider Physician Assistant
DX: R26.89 Other abnormalities of gait and mobility (principal); B35.1 Tinea unguium; L60.8 Other nail disorders
CPT/HCPCS: 11721

== ENCOUNTER 2024-12-24 14:23 | Outpatient (OUT) | payer BC, SELFPAY ==
--- OUTSIDE RECORDS SUMMARY | 2024-12-24 14:27 | XMS_ITS | Patient Health Record ---
Author Organization [facility] Address [address] [place] [address] Care Team Providers Care Cloth Brushing And Sueding Supervisor Name Role Phone SLOAN NICHOLS DO Primary Care Provider John Myles Unavailable [phone] Allergies No Known Allergies Results Component Value Reference Range Notes Surgery Scheduling Reviewed date:03/23/2024 02:39:17 PM Interpretation: Performing Lab: Notes/Report: Social Sec number: [id number] Primary Insurance Company: [employer] Surgeon/Assist: ALDO Surgery Location: [facility] Surgery Date & Time: @ 8 AM Hosp arrival time day of: TBD Surgery End Time: 8:30 AM Procedure: LEFT HIP INTRA ARTIC ULAR INJECTION WITH FLUOROSCOPY C-Arm: YES Diagnosis: OSTEOARTHRITIS OF LEFT HIP Admission Type: OP Anesthesia Type/CPNB: MAC,LOCAL Post-op Appointment Date: 05/04/2024 @ 2:00 PM Latex Allergy NO Lab Location: [facility] Lab Date/Time: 03/16/2024 Chemical Cell Changer: MARSHALL Rizo Physician: NONE NEEDED Pre-op labs/Chest Order: EKG,CXR Had or have MRSA/Direct contact w MRSA pt/HCW NO Reason For Referral Reason APPROVED [employer]... 03/23...please precert left hip intra-articular injection at [facility] 03/10/2024 13:16:25 >[id number] Diagnosis 1 Osteoarthritis of le ft hip, unspecified osteoarthritis type (M16.12) Referral Organization [facility] Referring Provider First Name John Referring Provider Last Name Aldo Referring Provider Speciality Orthopedic Surgery Referred Organization [facility] Referred Provider John Carlson Referred Address [address] [place], [place],[address],[place] Referred Provider Specialty Orthopedic S urgery Procedure 1 Injection major join t/bursa () Procedure 2 NEEDLE LOCALIZATION BY XRAY ([id number]) General Notes Beverley Trevizo 06/2023 01:03:57 PM > REQ CODE, Beverley Trevizo 03/10/2024 01:22:12 PM > Randall Mantilla 03/10/2024 13:16:25 >[id number] Amber 03/10/2024 04:15:23 PM > AUTH IS PENDING WITH [facility]. FORM AND CLINICALS WERE FAXED. FORM IN CHART., Beverley Trevizo 03/17/2024 02:47:00 PM > AUTH IS STILL PENDING. PER HERMINIO AT [facility], IT WAS SENT TO MD REVIEW AND SHE IS JUST WAITING ON AN ANSWER., Beverley Trevizo 03/20/2024 02:11:05 PM > AUTH WAS APPROVED PER [facility]. APPROVED DATES ARE FROM 03/11/2024-05/11/2024. AUTH #[id number]. AUTH IN CHART. PER [employer] IS ACTIVE OF 06/10/2022 WITH NO END DATE. FAXED TO [facility]. Referral Priority Routine Medications Medication SIG (Take, Route, Frequency, Duration) Notes Start Date End Date Status Mobic 15 mg 1 tab(s) orally once a day for 30 day(s) 05/11/2024 Active Synthroid Active Tylenol Active Social History Tobacco Use: Social History Observation Description Date Details (start date - stop date) Never Smoker NA - NA AUDIT-C (Standard) Question Answer Notes Did you have a drink containing alcohol in the p ast year? No Points 0 Interpretation Negative Tobacco Control (Standard) Question Answer Notes Tobacco use: Nonsmoker Problems Problem Type SNOMED Code ICD Code Onset Dates Problem Status W/U Status Risk Notes Problem [id number] Osteoarthritis o f left hip, unspecified osteoarthritis type (M16.12) Active confirmed Procedures Procedure Date Ordered Date Performed Result Body Sit e EKG 03/17/2024 N/A Encounters Encounter Location Date Provider Diagnosis [facility] Office [address] [place] [address] [place] [address] 03/02/2024 John Carlson Osteoarthritis of le ft hip, unspecified osteoarthritis type M16.12 [facility] [address] [place] [address] 03/23/2024 John Carlson Osteoarthritis of le ft hip, unspecified osteoarthritis type M16.12 [facility] [address] [place] [address] 05/04/2024 John Carlson Osteoarthritis of le ft hip, unspecified osteoarthritis type M16.12 [facility] [address] [place] [address] 03/09/2024 John Carlson [place] [facility] [address] [place] [address] 03/17/2024 John Carlson Encounter for pre-operative cardiovascular clearance Z01.810 and Encounter for pre-operative laboratory testing Z01.812 [facility] [address] [place] [address] 05/11/2024 John Carlson Assessments Encounter Date Diagnosis (ICD Code) Assessment Notes Treatment Notes Treatment Clinical Notes Section Notes 03/02/2024 Osteoarthritis of left hip, unspecified osteoarthritis type (ICD-10 - M16.12) left hip osteoarthritis 03/17/2024 Encounter for pre-operative laboratory testing (ICD-10 - Z01.812) 03/17/2024 Encounter for pre-operative cardiovascular clearance (ICD-10 - Z01.810) 03/23/2024 Osteoarthritis of left hip, unspecified osteoarthritis type (ICD-10 - M16.12) 05/04/2024 Osteoarthritis of left hip, unspecified osteoarthritis type (ICD-10 - M16.12) Left hip OA 03/02/2024 Other I discussion with Herb today and his sister. Will attempt a fluoroscopy guided corticosteroid injection. Does have moderate to severe hip arthritis. 6 weeks follow-up following injection left hip osteoarthritis 05/04/2024 Other Herb doing very well today in regards to his left hip. Retreatment relief with injection. Discussed treatment options would like to hold off on any totals at this time. Will see him back in the office in 6 weeks for further discussion Left hip OA Plan Of Treatment Pending Test Test Name Order Date PT/OT - Eval and Treat 05/11/2024 EKG 03/17/2024 DJM-Hip Injection with Inter ventional Radiology (Skin Injection: 1% Lidocaine without Epinephrine, Hip Injection: 2ml 0.2.5% Marcaine, 2ml 1% Lidocaine, 1ml Depomedrol 80mg/ml) 03/02/2024 Chest 2 views - [id number] 03/17/2024 Insurance Providers Payer Name Payer Address Payer Phone Subscriber Number Group Number Insured Name Patient Relationship to Insured Coverage Start Date Coverage End Date [employer] [address] [place] [address] [id number] HERB CARDENAS Self - patient is the insured Medical (General) History Medical History History ICD Code 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
--- OUTSIDE RECORDS SUMMARY | 2024-12-24 14:27 | XMS_ITS | Clinical Summary ---
Author Organization [facility] Address [address] [place], [place] [address] Care Team Providers Care Point Of Care Specialist Name Role Phone Declan Muro Primary Care Provider Allergies No known active allergies Medications SYNTHROID 137 mcg tablet 1 tablet. 07/26/2017 Active Active Problems No known active problems Social History Tobacco Use Types Packs/Day Years Used Date Smoking Tobacco: Never Assessed Sex and Gender Information Value Date Recorded Sex Assigned at Not on file Legal Sex Male 11:06 AM EST Gender Identity Not on file Sexual Orientation Not on file Plan of Treatment Health Maintenance Due Date Last Done Comments Anxiety Screening 1982 Depression Screening 1982 HIV Screening 1982 Hepatitis C Screening 1982 DTaP,Tdap,Td Vaccine (1 - Tdap) [address] Colonography 2009 Cologuard (FIT-DNA) 2009 Colonoscopy 2009 Colorectal Cancer Screening 2009 Diabetes Screening 2009 Fecal Occult Blood 2009 Prostate Cancer Screening Discussion 2009 Sigmoidoscopy 2009 Pneumococcal Vaccine: 50+ (1 of 1 - PCV) 2014 Shingrix Vaccine (1 of 2) 2014 Covid-19 Vaccine (1 - 2023-25 season) 2024 Influenza Vaccine (#1) 2025 RSV Vaccine (1 - 1-dose 75+ series) 2039 Insurance [employer] Care Teams Point Of Care Specialist Relationship Specialty Start Date End Date Declan Muro DO [address] [place] [address] PCP - General Family Medicine 07/24/17
--- OUTSIDE RECORDS SUMMARY | 2024-12-24 14:27 | XMS_ITS | Clinical Summary ---
Author Organization [facility] Address [address] [place] [address] Care Team Providers Care Union Carpenter Name Role Phone Unavailable Primary Care Provider Unavailabl e Social History Tobacco Use Types Packs/Day Years Used Date Smoking Tobacco: Never Assessed Sex and Gender Information Value Date Recorded Sex Assigned at Not on file Legal Sex Male 8:32 PM EDT Gender Identity Not on file Sexual Orientation Not on file Last Filed Vital Signs Vital Sign Reading Time Taken Comments Blood Pressure 156/88 02/16/2021 12:00 PM EDT Pulse - - Temperature - - Respiratory Rate - - Oxygen Saturation - - Inhaled Oxygen Concentration - - Weight 84.4 kg (186 lb) 02/16/2021 12:00 PM EDT Height 170.2 cm (5' 7 ) 02/16/2021 12:00 PM EDT Body Mass Index 29.13 02/16/2021 12:00 PM EDT Plan of Treatment Not on file
--- NOTE | 2024-12-24 15:54 | P.WCHP_ITS ---
Wound Care H&P: HPI History of Present Illness Narrative: Oskar is a pleasant 59 year old gentleman with history of cognitive disability who present for routine nail care. He states his great toenails are painful currently but has no other complaints in regards to his feet at this time. [facility] Medical History (Updated 09/24/24 @ 16:51 by CAT Berrios) Hypothyroidism �E03.9 - Hypothyroidism, unspecified (ICD-10) Pain in left hip �M25.552 - Pain in left hip (ICD-10) Surgical History (Updated 03/20/24 @ 15:22 by Jalyn Friend, ABRIL) H/O umbilical hernia repair �Z98.890 - Other specified postprocedural states (ICD-10) �Z87.19 - Personal history of other diseases of the digestive system (ICD-10) Family History (Updated 03/20/24 @ 15:24 by Jalyn Friend RN) Other Family history of CHF (congestive heart failure) Family history of cancer Family history of diabetes mellitus Family history of hypertension Family history of myocardial infarction Social History (Updated 03/20/24 @ 15:26 by Jalyn Friend RN) Within the past year, how often did you have a drink containing alcohol: never Score interpretation: A score less than 4 is consistent with normal alcohol consumption. 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 No ulcerative or preulcerative lesions are noted. Skin is diffusely dry Vascular: DP and PT pulses are 2/4 bilaterally. Digital hair is normal. Feet are warm to the touch. No edema noted. Neurologic: Achilles reflexes are 1/4 bilaterally. Vibratory sensation is inta ct. Protective sensation is decreased. Monofilament testing reveals the patient detected 0/5 areas tested on the right foot and 2/5 areas tested on the left. Musculoskeletal: No gross deformity. Range of motion and strength is within normal limits. Assessment and Plan Assessment and Plan (1) Disorder of nail due to another disorder: (2) Tinea unguium: (3) Ambulatory dysfunction: Plan Routine nail care performed without incident. Follow-up in 3 months. Acute Procedures Podiatry Nail Debridement Class B Findings Advanced trophic changes as evidenced by any three of the following: nail changes (thickening) Class C Findings Claudication: No Temperature changes: No Edema: No Nail debridement paresthesia (abnormal spontaneous sensations in the feet): Yes Burning: Yes Qualifies If: Qualifiers If:: A patient qualifies for nail debridement if they have: 1 class A finding (Q7) 2 class B findings (Q8) OR 1 class B & 2 class C findings in addition to a primary condition (Q9) Nail Procedure Nail Procedure Time out: Yes Nail procedure: other (toenail debridement 1-10) Number of affected nails: 10 Location (toes): left and right Procedure successful: Yes Patient tolerated procedure: well and no complications Additional comments: Toenails 1 through 10 were sharply debrided with nail nippers without incident and to the patient's satisfaction. He noted pain relief postprocedure.
== END 2024-12-24 14:24 | disposition home or self-care (01) ==
LOC: WC 14:25
PROVIDERS: PCP Internal Medicine; Visit Provider Physician Assistant
DX: L60.8 Other nail disorders (principal); B35.1 Tinea unguium; R26.89 Other abnormalities of gait and mobility
CPT/HCPCS: 11721

== ENCOUNTER 2025-04-01 14:50 | Outpatient (OUT) | payer OTHER, SELFPAY ==
--- OUTSIDE RECORDS SUMMARY | 2025-04-01 14:54 | XMS_ITS | Clinical Summary ---
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 Role Phone Declan Muro DO Primary Care Provider Allergies No known active allergies Medications MedicationSigDispense QuantityRefillsLast FilledStart DateEnd DateStatus SYNTHROID 137 mcg tablet 1 tablet.07/26/2017Active Active Problems No known active problems Social History Tobacco UseTypesPacks/DayYears UsedDateSmoking Tobacco: Never AssessedSex and Gender InformationValueDate RecordedSex Assigned at BirthNot on fileLegal Sex Male07/24/2017 11:06 AM ESTGender IdentityNot on fileSexual OrientationNot on file Plan of Treatment Health MaintenanceDue DateLast DoneCommentsAnxiety Cogfhqklj09/22/1982Depression Zxcirgpgz60/22/1982HIV Ioenstgvu30/22/1982Hepatitis C Wbwfsfdvo69/22/1982 DTaP,Tdap,Td Vaccine (1 - Tdap)1983Lipid Qosyoizbf45/22/1999CT Icacygtdvzbs43/22/2009Cologuard (FIT-DNA)03/01/20097161Msrwqitimok64/22/2009 Colorectal Cancer Hlmwpvkln13/22/2009Diabetes Bgtjnhbdc31/22/2009Fecal Occult Blood2009Prostate Cancer Screening Vtexsazoel15/22/2009Sigmoidoscopy 2009Pneumococcal Vaccine: 50+ (1 of 1 - PCV)2014Shingrix Vaccine (1 of 2)2014Covid-19 Vaccine (1 - 2024- season)2025Influenza Vaccine (#1)2025RSV Vaccine (1 - 1-dose 75+ series)2039 Insurance Care Teams Team MemberRelationshipSpecialtyStart DateEnd Date Declan Muro DO [address] [place] [address] PCP - GeneralFamily Medicine07/24/17
--- OUTSIDE RECORDS SUMMARY | 2025-04-01 14:54 | XMS_ITS | Clinical Summary ---
Author Organization [facility] Address [address] [place] [address] Care Team Providers Care Project Manager Name Role Phone Unavailable Primary Care Provider Unavailabl e Social History Tobacco UseTypesPacks/DayYears UsedDateSmoking Tobacco: Never AssessedSex and Gender InformationValueDate RecordedSex Assigned at BirthNot on fileLegal Sex Male10/08/2022 8:32 PM EDTGender IdentityNot on fileSexual OrientationNot on file Last Filed Vital Signs Vital SignReadingTime TakenCommentsBlood Txucbyuh750/8809 12:00 PM EDT Pulse--Temperature--Respiratory Rate--Oxygen Saturation--Inhaled Oxygen Concentration--Cpiehn38.4 kg (186 lb)02/16/2021 12:00 PM GKVUbdrfo126.2 cm (5' 7 )02/16/2021 12:00 PM EDTBody Mass Index29.1309 12:00 PM EDT Plan of Treatment Not on file
--- OUTSIDE RECORDS SUMMARY | 2025-04-01 14:57 | XMS_ITS | CCD ---
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 Name Role Phone WALLY ZIMMER Unavailable Unavailable MCKINLEY ANAYA Unavailable Unavailab migue JAIMES, [facility] Primary Care Unavailable THEODORE, VIRGEN KINSEY Consulting Unavailable RIVERA, LEANNA Attending Unavailable RIVERA, LEANNA Admitting Unavailable WIECEK, DR DECLAN Artis Admitting Unavailable WIECEK, DR DECLAN Artis Attending Unavailable WIECEK, DR DECLAN Artis Consulting Unavailable THEODORE, [facility] KINSEY Primary Care Unavailable WIECEK, DR DECLAN Artis Attending Unavailable WIECEK, DR DECLAN Artis Admitting Unavailable ROSS, [facility] KINSEY Primary Care Unavailable WIECEK, DR DECLAN Artis Attending Unavailable WIECEK, DR DECLAN Artis Consulting Unavailable WIECEK, DR DECLAN Artis Admitting Unavailable ROSS, VIRGEN KINSEY Primary Care Unavailable CARISSA CACERES Consulting Unavailable GEN, DR LISA Admitting Unavailable GEN, DR LISA Attending Unavailable GEN, DR LISA Consulting Unavailable GEN, DR LISA Primary Care Unavailable Aziza Byrne Unavailable Sofia Purvis Unavailable Asif Blevins Unavailable Asif Blevins DO Primary Care Provider Asif Blevins DO Attending Provider [phone] Medications Current Medications MedicationDrug Class(es)DatesSig (Normalized)Sig (Original)azithromycin 40 mg/ml oral suspension (4 sources)Macrolide AntimicrobialStart: 79-54-8366mzwr 12.5 mL by mouth once dailyAzithromycin 200 MG/5ML 12.5 ML Orally daily for 3 days Nov, Active fluticasone propionate 0.05 mg/actuat metered dose nasal spray (12 sources)CorticosteroidStart: 02-63-6454Qklqviskucj Propionate 50 mcg/actuation spray,suspension Active 1 SPRAY INTRANASAL Daily December 16, 2023 12:00am Complies with drug therapyStart: 09-41-4319fbxg 1 spray(s) nasal route once dailyFluticasone Propionate 50 MCG/ACT 1 spray in each nostril Nasally Once a day for 30 days Nov, Activelevothyroxine sodium 0.1 mg oral tablet (20 sources)l-ThyroxineStart: 02-23-2025 End: 35-06-2168jwjl 1 tablet by mouth once dailyLevothyroxine (Synthroid) 100 mcg tablet Active 100 MCG PO Daily 90 March 11, 2025 11:10am Complies with drug therapyStart: 12-16-2023 End: 95-45-4517wnit 1 tablet by mouth once daily in the morningLevothyroxine (Synthroid) 100 mcg tablet Discontinued 0 .ROUTE .COMPLEX December 06, 2024 4:38pm February 23, 2025 11:08am TAKE 1 TABLET BY MOUTH EVERY DAY IN THE MORNING ON EMPTY STOMACH FOR 90 DAYSStart: 12-16-2023 End: 14-24-7926pnzq 1 tablet by mouth once dailyLevothyroxine 100 mcg tablet Discontinued 100 MCG PO Daily December 16, 2023 12:00am December 16, 2023 9:35amtake 1 tablet by mouth once daily in the morningSynthroid 100 MCG 1 tablet in the morning on an empty stomach Orally Once a day for 90 days unsure of dose Active Synthroid unsure of dose Activemeloxicam 15 mg oral tablet (10 sources)Nonsteroidal Anti-inflammatory DrugStart: 01-24-2024 End: 99-00-2858ittr 1 tablet by mouth once dailyMeloxicam 15 mg tablet Active 15 MG PO Daily January 24, 2024 2:18pm take w/ bkfst Complies with drug therapyoseltamivir 6 mg/ml oral suspension (2 sources)Neuraminidase InhibitorStart: 13-92-6977gypa 75 mg by mouth twice dailyOseltamivir (Tamiflu) 6 mg/mL suspension for reconstitution Active 75 MG PO Twice daily 2024 1:00am Complies with drug therapy Completed/Discontinued Medications MedicationDrug Class(es)DatesSig (Normalized)Sig (Original)amoxicillin 875 mg / clavulanate 125 mg oral tablet (5 sources)Penicillin-class AntibacterialStart: 87-74-8307uwtx 1 tablet by mouth every twelve hoursAmoxicillin-Pot Clavulanate 875-125 MG 1 tablet Orally every 12 hrs for 7 days Nov, Not-Takingbaclofen 20 mg oral tablet (8 sources)gamma-Aminobutyric Acid-ergic AgonistStart: 02-20-2024 End: 03-79-5016thes 1 tablet by mouth once daily at bedtimeBaclofen 20 mg tablet Discontinued 0 .ROUTE .COMPLEX 90 February 20, 2024 6:11pm June 24, 2024 4:30pm TAKE 1 TABLET BY MOUTH EVERYDAY AT BEDTIMEStart: 01-29-2024 End: 84-44-5902pnoe 1 tablet by mouth once daily at bedtimeBaclofen 20 mg tablet Discontinued 20 MG PO Daily at bedtime January 29, 2024 12:00am February 20, 2024 6:11pm Problems Active Problems Problem ClassificationProblemDateDocumented DateEpisodic/ChronicAbdominal hernia (6 sources)Umbilical hernia with obstruction, without gangrene; Translations: [Umbilical hernia without obstruction or gangrene]Onset: 15-39-5042YoixkubpWpebj bronchitis (1 source)Acute bronchitis due to other specified organismsEpisodicDevelopmental disorders (16 sources)Mental retardation; Translations: [Unspecified intellectual disabilities]89-56-8214XqorzinOgzakakswkvyl disorders (1 source)Borderline intellectual functioningEpisodicDisorders of lipid metabolism (1 source)Pure hypercholesterolemia, unspecified; Translations: [PURE HYPERCHOLESTEROLEMIA UNSPEC]Onset: 13-07-7012HrlivwaEvhfvtniib disorders (1 source)Gastro-esophageal reflux disease without esophagitis; Translations: [GERD WITHOUT ESOPHAGITIS]Onset: 98-49-5192HmysrtlYlifjiglfrvjrh (10 sources)Osteoarthritis of left hip joint; Translations: [Unilateral primary osteoarthritis, left hip]21-39-2074ZhmitqkJrdun circulatory disease (6 sources)Elevated blood-pressure reading without diagnosis of hypertension; Translations: [Elevated blood-pressure reading, without diagnosis of hypertension]90-04-6210BzaqpzyiAzyoj circulatory disease (4 sources)Elevated blood-pressure reading, without diagnosis of hypertension; Translations: [Elevated blood pressure reading without diagnosis of hypertension]81-04-6429MjxwrhllLljtx connective tissue disease (1 source)Spasm; Translations: [Muscle spasm of calf]EpisodicOther non-traumatic joint disorders (8 sources)Pain in left knee; Translations: [Left knee pain]85-18-4972Zfasruof Other non-traumatic joint disorders (5 sources)Hip pain; Translations: [Pain in left hip]40-97-3612JwmhlgcpOgneh non-traumatic joint disorders (5 sources)Pain in left hip; Translations: [Pain in joint, pelvic region and thigh]74-56-5388JzssmuldEcjgy nutritional; endocrine; and metabolic disorders (7 sources)Obesity; Translations: [Obesity, unspecified]79-99-7236YisydbnLfyxa nutritional; endocrine; and metabolic disorders (2 sources)Obesity, unspecified; Translations: [Obesity, unspecified]01-02-2024 ChronicOther nutritional; endocrine; and metabolic disorders (1 source)Body mass index 25-29 - overweight; Translations: [Body mass index (BMI) 29.0-29.9, adult]EpisodicOther nutritional; endocrine; and metabolic disorders (1 source)Overweight; Translations: [Overweight]EpisodicOther screening for suspected conditions (not mental disorders or infectious disease) (9 sources)Encounter for screening for malignant neoplasm of prostate; Translations: [Encounter for screening for malignant neoplasm of colon]Onset: 72-28-8519ScihnohdLlitn upper respiratory infections (3 sources)Acute upper respiratory infection, unspecified; Translations: [Acute pharyngitis, unspecified]EpisodicResidual codes; unclassified (1 source)Other specified personal risk factors, not elsewhere classified; Translations: [Personal risk factor]EpisodicThyroid disorders (20 sources)Hypothyroidism, unspecified; Translations: [Autoimmune thyroiditis] Onset: 72-63-9225YsfqoioFxsdszqrrgeu (1 source)Unknown / UNK(Unknown)Onset: 75-99-9825Pdenfedkuhqz (3 sources)CONTACT W/AND (SUSP) EXPOS COVID-19; Translations: [CONTACT W/AND (SUSP) EXPOS COVID-19]Onset: 68-18-1744Bxtsy infection (1 source)COVID-19; Translations: [COVID-19]Onset: 06-19-2021 Past or Other Problems Problem ClassificationProblemDateDocumented DateEpisodic/ChronicOther aftercare (1 source)Other alf (current) drug therapy; Translations: [OTH RETIREMENT CURRENT DRUG THERAPY]Onset: 24-29-6156NyvxyhyaUulalaxkhqop (1 source)CONTACT W/AND (SUSP) EXPOS COVID-19; Translations: [CONTACT W/AND (SUSP) EXPOS COVID-19]Onset: 06-14-2021 Results Test NameValueInterpretationReference RangeFacilityBasophils Auto (Bld) [#/Vol] on 66-36-9011Obvuitwhe (Bld) [#/Vol]0.0 10 3/uL0.0-0.1FLicking Memorial HospitalBasophils/100 WBC Auto (Bld)on 66-30-1686Pyuyudsuc/100 WBC (Bld)0.4 % 0.2-2.0[facility] HospitalCholesterol in LDL Calc [Mass/Vol]on 67-83-0684Eukaqaiwzcl in LDL [Mass/Vol]101.0 mg/dLPaulding County HospitalComment on above:<100 mg/dl DQEQBKJ307-261 mg/dl NEAR OR ABOVE YBLBIWL817- 159 mg/dl BORDERLINE JNZB689-993 mg/dl HIGH>190 mg/dl VERY HIGHCholesterol in VLDL Calc [Mass/Vol]on 17-66-8152Lkqzapqcyov in VLDL [Mass/Vol]47.8 mg/dL [facility] HospitalEosinophils/100 WBC Auto (Bld)on 12-17-2023 Eosinophils/100 WBC (Bld)2.1 %0.9-7.0[facility] Erythrocyte distribution width Auto (RBC) [Ratio]on 22-45-7730Syigxnokoos distribution width (RBC) [Ratio]13.2 %11.0-15.0[facility] Estimated glomerular filtration rate (GFR) non- Americanon 12-17-2023 GFR/1.73 sq M.predicted among non-blacks MDRD (S/P/Bld) [Vol rate/Area]60 mL/min/{1.73_m2}>=60Paul[facility] County HospitalGlobulin Calc (S) [Mass/Vol]on 44-18-8190Ymdkrtaq (S) [Mass/Vol]3.9 g/dLPaulding County HospitalGlucose mean value [Mass/volume] in Blood Estimated from glycated hemoglobinon 38-02-9693Xoyhxhk glucose Estimated from glycated hemoglobin (Bld) [Mass/Vol]114 mg/dLPaulding County HospitalHematocrit Auto (Bld) [Volume fraction]on 20-32-2987Okjptmoycy (Bld) [Volume fraction]45.5 %42.0-54.0 [facility] HospitalHemoglobin [Mass/volume] in Bloodon 12-17-2023 Hemoglobin (Bld) [Mass/Vol]15.0 g/dL14.0-18.0[facility] - Chemistry and Chemistry - challengeon 83-69-1767Aknvtvr [Mass/Vol] 3.8 g/dL3.4-5.0[facility] HospitalALP [Catalytic activity/Vol]109 U/T37-307AsrpdsbhaPaulding County HospitalALT [Catalytic activity/Vol]61 U/L 16-63Paul[facility] HospitalAST [Catalytic activity/Vol]28 U/L15-37 [facility] HospitalBilirubin [Mass/Vol]0.4 mg/dL0.2-1.0[facility] HospitalCalcium [Mass/Vol]8.8 mg/dL8.5-10.1FLicking Memorial HospitalChloride [Moles/Vol]105 mmol/A52-559RkgywvoucPaulding County HospitalCholesterol [Mass/Vol]197 mg/dL<=200[facility] Cholesterol in HDL [Mass/Vol]49 mg/pM96-89FyaojcjigPaulding County Hospital Comment on above:> or =60 mg/dl - LOW CARDIOVASCULAR RISK<40 mg/dl - HIGH CARDIOVASCULAR RISKCO2 [Moles/Vol]30.3 mmol/L21.0-32.0[facility] HospitalCreatinine [Mass/Vol]1.24 mg/dL0.70-1.30[facility] GFR/1.73 sq M.predicted MDRD (S/P/Bld) [Vol rate/Area]mL/min/{1.73_m2}>=60 [facility] HospitalGlucose [Mass/Vol]100 mg/nV61-277YglwglbzlPaulding County HospitalPotassium [Moles/Vol]4.1 mmol/L3.5-5.1FLicking Memorial HospitalProtein [Mass/Vol]7.7 g/dL6.4-8.2FLicking [facility] Hospital Sodium [Moles/Vol]142 mmol/E052-324BlwarrjeaPaulding County HospitalTriglyceride [Mass/Vol]239 mg/dLHigh<=150Paul[facility] County HospitalTSH Qn2.480 m[IU]/L0.358-3.740Paul[facility] County HospitalUrea nitrogen [Mass/Vol]20.0 mg/dLHigh7.0-18.0Paul[facility] HospitalUrea nitrogen/Creatinine [Mass ratio]16.1 mg/mgPaulding County HospitalLaboratory - Hematology and Cell countson 16-82-2365DmE1h (Bld) [Mass fraction]5.6 %4.5-6.2FLicking Memorial HospitalComment on above:ADA RECOMMENDED LIMIT 4.0 - 6.0ADA THERAPEUTIC TARGET < 7.0ACTION SUGGESTED> 7.0Immature granulocytes/100 WBC (Bld) 0.6 %High0.0-0.5FLicking Memorial HospitalLeukocytes [#/volume] corrected for nucleated erythrocytes in Blood by Automated counon 87-62-6817AHR corrected for nucl RBC Auto (Bld) [#/Vol]10.5 10 3/uL4.0-11.0[facility] HospitalLymphocytes Auto (Bld) [#/Vol]on 61-05-4781Swogcfjisgg (Bld) [#/Vol]2.4 10 3/uL1.2-3.8[facility] HospitalLymphocytes/100 WBC Auto (Bld)on 98-14-0758Ibiyatnbtht/100 WBC (Bld)23.2 %20.5-60.0[facility] Auto (RBC) [Entitic mass]on 45-67-1707PVK (RBC) [Entitic mass]28.7 pg 25.9-34.0[facility] HospitalMCHC Auto (RBC) [Mass/Vol]on 29-72-9763XWMD (RBC) [Mass/Vol]33.0 g/dL29.9-35.2FLicking Memorial HospitalMCV Auto (RBC) [Entitic vol]on 16-09-8720GGH (RBC) [Entitic vol]87.0 fL 80.0-94.0[facility] HospitalMonocytes Auto (Bld) [#/Vol]on 80-65-7348Mgyhztjcg (Bld) [#/Vol]1.0 10 3/uLHigh0.3-0.8[facility] HospitalMonocytes/100 WBC Auto (Bld)on 48-45-8141Luvmaihat/100 WBC (Bld) 9.4 %1.7-12.0[facility] HospitalNeutrophils Auto (Bld) [#/Vol]on 81-45-6058Apvrsskzsiw (Bld) [#/Vol]6.8 10 3/uLHigh1.4-6.5FLicking Memorial HospitalNeutrophils/100 WBC Auto (Bld)on 92-64-8472Irfjbcyabnq/100 WBC (Bld)64.3 %43.0-75.0[facility] HospitalNo Panel Informationon 81-74-3128Qrodolvzkxu # (Auto)0.2 10 3/uL0.0-0.7FLicking Memorial HospitalImmature Granulocyte # (Auto)0.06 10 3/uLHigh0.00-0.03[facility] HospitalProstate Specific Antigen Screen0.46 ng/mL<=4.00Paul[facility] HospitalPlatelet mean volume Auto (Bld) [Entitic vol]on 12-17-2023 Platelet mean volume (Bld) [Entitic vol]9.2 fLLow9.5-13.5FLicking Memorial HospitalPlatelets Auto (Bld) [#/Vol]on 45-13-4064Sxpzwibrz (Bld) [#/Vol] 214 10 3/jK339-673HgrprepitPaulding County HospitalRBC Auto (Bld) [#/Vol]on 63-92-1950ZFU (Bld) [#/Vol]5.23 10 6/uL4.70-6.10[facility] Systemerum or plasma albumin/globulin mass ratioon 27-67-3909Nfhqwfo/Globulin [Mass ratio]1.0 {ratio}[facility] Systemerum or plasma anion gap determinationon 60-39-8335Zdyja gap [Moles/Vol]10.8 mmol/LFCherrington Hospitalerum or plasma total cholesterol/high density lipoprotein (HDL) cholesterol mass maury 32-80-9716Ddxlrlfysoq.total/Cholesterol in HDL [Mass ratio]4.0 {ratio}[facility] HospitalComment on above:3.3 - 4.4 LOW RISK4.4 - 7.1 AVERAGE RISK7.1 - 11.0 MODERATE RISK>11.0 HIGH RISKQuick Strepon 11-24-2022S. pyogenes Org specific cx Ql (Throat)NegativeArizona State University Other Quick StrepArizona State University Other cbc AUTO DIFFon 43-21-4557LDDW #0.1 103/ulNormal 0.0-0.1The [facility] HospitalComment on above:Performed By: #### CBC #### [facility] [address] [address] [address] Eliza BarnesBasophils/100 WBC (Bld)0.6 %Normal0.2-2.0[facility] Comment on above:Performed By: #### CBC #### [facility] [address] [address] [address] Eliza Musa #0.1 103/ulNormal0.0-0.7The [facility] HospitalComment on above: Performed By: #### CBC #### [facility] [address] [address] [address] Eliza Chuosinophils/100 WBC (Bld)1.7 %Normal0.9-7.0The [facility] Comment on above:Performed By: #### CBC #### [facility] [address] [address] [address] Eliza Churythrocyte distribution width (RBC) [Ratio]13.6 %Itwvll39.0-15.0 The [facility] HospitalComment on above:Performed By: #### CBC #### [facility] [address] [address] [address] Eliza BarnesHematocrit (Bld) [Volume fraction]48.3 %Clguej54.0-54.0The [facility] HospitalComment on above:Performed By: #### CBC #### [facility] [address] [address] [address] Eliza BarnesHemoglobin (Bld) [Mass/Vol]15.7 g/zFYdczid04.0-18.0The [facility] HospitalComment on above:Performed By: #### CBC #### [facility] [address] [address] [address] Eliaz Cummings #0.09 10e3/ulCritically high0.00-0.03The [facility] on above:Performed By: #### CBC #### [facility] [address] [address] [address] Eliza Cummings %1.1 %Critically high0.0-0.5The [facility] HospitalComment on above:Performed By: #### CBC #### [facility] [address] [address] [address] Eliza Bray #2.1 103/ulNormal1.2-3.8The [facility] HospitalComment on above:Performed By: #### CBC #### [facility] [address] [address] [address] Eliza Millermphocytes/100 WBC (Bld)25.7 %Vfvvnu43.5-60.0The [facility] HospitalComment on above:Performed By: #### CBC #### [facility] [address] [address] [address] Eliza ChaudhryUAL DIFF REQNONormalThe [facility] HospitalComment on above: Performed By: #### CBC #### [facility] [address] [address] [address] Eliza Leblanc (RBC) [Entitic mass]28.3 rcJsosco44.9-34.0The [facility] HospitalComment on above:Performed By: #### CBC #### [facility] [address] [place] [address] Dr. Eliza JulesHC (RBC) [Mass/Vol]32.5 g/uQLjnuzh49.9-35.2The [facility] HospitalComment on above:Performed By: #### CBC #### [facility] [address] [place] [address] Dr. Eliza JulesV (RBC) [Entitic vol]87.0 xJMdkrde64.0-94.0The [facility] HospitalComment on above:Performed By: #### CBC #### [facility] [address] [place] [address] Dr. Eliza Neri #0.7 103/ulNormal0.3-0.8The [facility] HospitalComment on above:Performed By: #### CBC #### [facility] [address] [place] [address] Dr. Eliza Zapataocytes/100 WBC (Bld)8.8 %Normal1.7-12.0The [facility] Comment on above:Performed By: #### CBC #### [facility] [address] [place] [address] Dr. Eliza Choi #5.2 103/ulNormal1.4-6.5The [facility] HospitalComment on above:Performed By: #### CBC #### [facility] [address] [place] [address] Dr. Eliza Haganutrophils/100 WBC (Bld)62.1 %Jvbtcj32.0-75.0The [facility] HospitalComment on above:Performed By: #### CBC #### [facility] [address] [place] [address] Dr. Eliza Garzalet mean volume (Bld) [Entitic vol]9.3 fLCritically low 9.5-13.5The [facility] HospitalComment on above:Performed By: #### CBC #### [facility] [address] [place] [address] Dr. Eliza BarnesPLT218 103/hjLoxuga933-617Ujk [facility] on above: Performed By: #### CBC #### [facility] [address] [address] [address] Eliza BarnesRBC5.55 106/ulNormal4.70-6.10The [facility] on above:Performed By: #### CBC #### [facility] [address] [address] [address] Eliza BarnesWBC8.3 103/ulNormal4.0-11.0[facility] HospitalCompaul [facility] on above: Performed By: #### CBC #### [facility] [address] [place] [address] Dr. Eliza BarnesGLYCOHEMOGLOBIN A1Con 93-93-0008NLH RECOMMENDATIONSEE [facility] HospitalCompaul [facility] on above:Result Comment: ADA RECOMMENDED LIMIT 4.0 - 6.0 ADA THERAPEUTIC TARGET < 7.0 ACTION SUGGESTED > 7.0Performed By: #### A1C #### [facility] [address] [place] [address] Dr. Eliza BarnesGlucose [Mass/Vol]114 mg/dLNoOhio Valley Surgical HospitalCompaul [facility] on above:Performed By: #### A1C #### [facility] [address] [place] [address] Dr. Eliza BarnesHbA1c (Bld) [Mass fraction]5.6 %Normal4.5-6.2[facility] on above:Performed By: #### A1C #### [facility] [address] [place] [address] Dr. Eliza BarnesLIPID PROFILEon 34-23-4881DBHB-HDL RATIO NORMSEE [facility] HospitalCompaul [facility] on above:Result Comment: 3.3 - 4.4 LOW RISK 4.4 - 7.1 AVERAGE RISK 7.1 - 11.0 MODERATE RISK >11.0 HIGH RISKPerformed By: #### CMP, TSH, LIPID #### [facility] [address] [place] [address] Dr. Eliza BarnesCholesterol [Mass/Vol]210 mg/dLCritically high<=200The [facility] on above:Performed By: #### CMP, TSH, LIPID #### [facility] [address] [place] [address] Dr. Eliza Videsesterol in HDL [Mass/Vol]52 mg/jCQqiart56-25Mnl [facility] on above:Performed By: #### CMP, TSH, LIPID #### [facility] [address] [address] [address] Eliza BarnesCholesterol in LDL [Mass/Vol]121.2 mg/dLPeoples Hospital on above:Performed By: #### CMP, TSH, LIPID #### [facility] [address] [place] [address] Dr. Eliza Newby.total/Cholesterol in HDL [Mass ratio]4.0 {ratio} NormalThe [facility] on above:Performed By: #### CMP, TSH, LIPID #### [facility] [address] [place] [address] Dr. Eliza Knight NORMAL> or = 60 mg/dl - LOW CARDIOVASCULAR RISK <40 mg/dl - HIGH CARDIOVASCULAR RISKGlenbeigh HospitalCompaul [facility] on above:Performed By: #### CMP, TSH, LIPID #### [facility] [address] [place] [address] Dr. Eliza Vinson CALC NORMALSEE BELOWGlenbeigh HospitalCompaul [facility] on above:Result Comment: <100 mg/dl OPTIMAL 100 - 129 mg/dl NEAR OR ABOVE OPTIMAL 130 - 159 mg/dl BORDERLINE HIGH 160 - 189 mg/dl HIGH >190 mg/dl VERY HIGH Performed By: #### CMP, TSH, LIPID #### [facility] [address] [address] [address] Eliza BarnesTriglyceride [Mass/Vol]184 mg/dLCritically high<=150The [facility] on above:Performed By: #### CMP, TSH, LIPID #### [facility] [address] [place] [address] Dr. Eliza MenaLDL CALC36.8 mg/dLNormalThe [facility] HospitalComment on above: Performed By: #### CMP, TSH, LIPID #### [facility] [address] [address] [address] Eliza Oro 14(COMP METB)on 89-29-6906Gstjbsb [Mass/Vol]3.8 g/dLNormal 3.4-5.0The [facility] Hospitalment on above:Performed By: #### CMP, TSH, LIPID #### [facility] [address] [address] [address] Eliza BarnesAlbumin/Globulin [Mass ratio]0.9 {ratio}NormalThe [facility] Hospitalment on above:Performed By: #### CMP, TSH, LIPID #### [facility] [address] [place] [address] Dr. Eliza Martines [Catalytic activity/Vol]99 U/ONrhnzw93-208Azp [facility] on above:Performed By: #### CMP, TSH, LIPID #### [facility] [address] [place] [address] Dr. Eliza Adams [Catalytic activity/Vol]81 U/LCritically ecqr81-20Ecz [facility] Hospitalment on above:Performed By: #### CMP, TSH, LIPID #### [facility] [address] [place] [address] Dr. Eliza Ledezma gap [Moles/Vol]11.4 mmol/LNormalThe [facility] Comment on above:Performed By: #### CMP, TSH, LIPID #### [facility] [address] [place] [address] Dr. Eliza Crystal [Catalytic activity/Vol]31 U/HSmavyt77-59Khv [facility] on above:Performed By: #### CMP, TSH, LIPID #### [facility] [address] [place] [address] Dr. Eliza Vidalirubin [Mass/Vol]0.6 mg/dLNormal0.2-1.0The [facility] Comment on above:Performed By: #### CMP, TSH, LIPID #### [facility] [address] [address] [address] Eliza BarnesCalcium [Mass/Vol]8.9 mg/dLNormal8.5-10.1The [facility] Comment on above:Performed By: #### CMP, TSH, LIPID #### [facility] [address] [address] [address] Eliza BarnesChloride [Moles/Vol]105 mmol/KSmwenc66-400Ppi [facility] Comment on above:Performed By: #### CMP, TSH, LIPID #### [facility] [address] [place] [address] Dr. Eliza BarnesCO2 [Moles/Vol]29.5 mmol/NVcqbck87.0-32.0The [facility] Comment on above:Performed By: #### CMP, TSH, LIPID #### [facility] [address] [place] [address] Dr. Eliza BarnesCreatinine [Mass/Vol]1.02 mg/dLNormal0.70-1.30The [facility] HospitalComment on above:Performed By: #### CMP, TSH, LIPID #### [facility] [address] [place] [address] Dr. Eliza ChuGFR-AF LITHUANIAN>60Normal>=60The [facility] HospitalComment on above:Performed By: #### CMP, TSH, LIPID #### [facility] [address] [place] [address] Dr. Eliza Vergara-NON AF LITHUANIAN>60Normal>=60The [facility] HospitalComment on above:Performed By: #### CMP, TSH, LIPID #### [facility] [address] [place] [address] Dr. Eliza BarnesGlobulin (S) [Mass/Vol]4.0 g/dLNormalThe [facility] HospitalComment on above:Performed By: #### CMP, TSH, LIPID #### [facility] [address] [place] [address] Dr. Eliza BarnesGlucose [Mass/Vol]103 mg/rGMhwrww20-391Dwu [facility] Comment on above:Performed By: #### CMP, TSH, LIPID #### [facility] [address] [place] [address] Dr. Eliza BarnesPotassium [Moles/Vol]3.9 mmol/LNormal3.5-5.1The [facility] Comment on above:Performed By: #### CMP, TSH, LIPID #### [facility] [address] [place] [address] Dr. Eliza BarnesProtein [Mass/Vol]7.8 g/dLNormal6.4-8.2The [facility] Comment on above:Performed By: #### CMP, TSH, LIPID #### [facility] [address] [place] [address] Dr. Eliza BarnesSodium [Moles/Vol]142 mmol/KQnufem733-312Stc [facility] Comment on above:Performed By: #### CMP, TSH, LIPID #### [facility] [address] [place] [address] Dr. Eliza BarnesUrea nitrogen [Mass/Vol]19.0 mg/dLCritically high7.0-18.0The [facility] HospitalComment on above:Performed By: #### CMP, TSH, LIPID #### [facility] [address] [place] [address] Dr. Eliza Johnson nitrogen/Creatinine [Mass ratio]18.6 mg/mgNormalThe [facility] HospitalComment on above:Performed By: #### CMP, TSH, LIPID #### [facility] [address] [place] [address] Dr. Eliza Walker 53-60-0318URU0.463 uIU/mLNormal0.358-3.740The [facility] HospitalComment on above:Performed By: #### CMP, TSH, LIPID #### [facility] [address] [place] [address] Dr. Eliza Vergarad-19 PCR ([facility])on 20-01-7937ICBO-CoV-2 (COVID-19) RNA MANFRED+probe Ql (Unsp spec)DetectedCritically abnormalNOT DETECTEDThe [facility] HospitalComment on above:Result Comment: This test is not yet approved or cleared by the [place] FDA. When there are no FDA-approved or cleared tests available, and other criteria are met, FDA can make tests available under an emergency access mechanism called an Emergency Use Authorization (EUA). The EUA for this test is supported by the Ava of Health and Human Service's (HHS's) declaration [...] no longer be used). Performed By: #### CVDTBH #### [facility] [address] [place] [address] Dr. Eliza Brizuela-19 PCR ([facility])on 02-15-9898QWBB-CoV-2 (COVID-19) RNA MANFRED+probe Ql (Unsp spec)Not detectedNormalNOT DETECTEDThe [facility] Comment on above:Result Comment: This test is not yet approved or cleared by the [place] FDA. When there are no FDA-approved or cleared tests available, and other criteria are met, FDA can make tests available under an emergency access mechanism called an Emergency Use Authorization (EUA). The EUA for this test is supported by the Audio/Video Engineer of Health and Human Service's (HHS's) declaration that circumstances exist to justify the emergency use of in vitro diagnostics for the detection and/or diagnosis of the virus that causes COVID- 19. This EUA will remain in effect (meaning [...] of clinical signs and symptoms consistent with SARS-CoV-2.Performed By: #### CVDTBH #### [facility] [address] [place] [address] Arun Dawson [id number] ID: [id number]: Wally ZimmerService: (none)Author Type: PhysicianType: Progress NotesFiled: 10/01/2017 3:12 PMNote Text:(H35.373) Epiretinal membrane (ERM) of both eyes (primary encounterdiagnosis)(H50.10) Exotropia of left eye(Z98.890) History of strabismus [...] the management ofthis patient's care with the Drawer Upfitter, if applicable. I also havereviewed and agree with the assessment and plan as stated above and agreewith all of its relevant components.Wally Zimmer [facility] 2017 3:11 PM NormalMem[facility] Vital Signs Date TimeVital SignValuePerforming XutnxlrnjRorvmzau34-97-3842 10:38-0400Body habkeh280.64 cmBenjamin Ball DO Work Phone: [facility]10-02-2025 10:38-0400 Body mass index (BMI) [Ratio]31.1 kg/t9Auchmvkm Ball DO Work Phone: [facility]10-02-2025 10:38-0400 Body arznjf97.71 kgBenjamin Ball DO Work Phone: [facility]10-02-2025 10:38-0400 Diastolic blood cjgvegim88 mm[Hg]Asif Ball DO Work Phone: [facility]10-02-2025 10:38-0400 Heart iucp377 /minBenjamin Ball DO Work Phone: [facility]10-02-2025 10:38-0400 Respiratory rate12 /minBenjamin Ball DO Work Phone: [facility]10-02-2025 10:38-0400 Systolic blood mvatjzok735 mm[Hg]Asif Ball DO Work Phone: [facility]03-03-2025 13:45-0500 Body .64 cmPaul[facility]03-03-2025 13:45-0500Body mass index (BMI) [Ratio]29.5 kg/e1OshtpafibPaulding County Hospital03-03-2025 13:45-0500Body fdufnicjfqt65.5 [degF][facility]03-03-2025 13:45-0500Body zrzmha62 kgPaulding County Hospital03-03-2025 13:45-0500Diastolic blood kvrexofq97 mm[Hg][facility] 08-10-2024 13:45-0500Heart scju676 /[facility] 08-10-2024 13:45-0500Respiratory rate18 /[facility] 08-10-2024 13:45-3273QjO5% (BldA) [Mass fraction]98 %[facility]03-03-2025 13:45-0500Systolic blood zsynzbrx519 mm[Hg][facility]01-15-2025 15:13-0500Body mlwiql286.64 cmPaulding [facility] Hospital01-15-2025 15:13-0500Body mass index (BMI) [Ratio]30 kg/m2 [facility]01-15-2025 15:13-0500Body zuifzb66.53 kg [facility]01-15-2025 15:13-0500Diastolic blood nnifmhdo24 mm[Hg][facility]01-15-2025 15:13-0500Heart gpwq269 /min [facility]01-15-2025 15:13-0500Respiratory rate12 /min [facility]01-15-2025 15:13-0500Systolic blood cbdxyakx296 mm[Hg][facility]09-10-2024 11:37-0400Body hjycer292.64 [facility]09-10-2024 11:37-0400Body mass index (BMI) [Ratio]31 kg/w6IxhpuozwdPaulding County Hospital09-10-2024 11:37-0400Body weight 87.14 kgPaulding [facility] Hospital09-10-2024 11:37-0400Diastolic blood tjkiyezs56 mm[Hg][facility]09-10-2024 11:37-0400Heart rate83 /[facility]09-10-2024 11:37-0400Respiratory rate12 /[facility]09-10-2024 11:37-0400Systolic blood mm[Hg][facility]08-21-2024 08:43-0400Body dybtav387.64 [facility]08-21-2024 08:43-0400Body mass index (BMI) [Ratio]31 kg/l8AswewjqvcPaulding County Hospital08-21-2024 08:43-0400Body .23 [facility]08-21-2024 08:43-0400Diastolic blood mm[Hg][facility] 01-29-2024 08:43-0400Heart rate92 /[facility] 01-29-2024 08:43-0400Respiratory rate16 /[facility] 01-29-2024 08:43-0400Systolic blood mm[Hg][facility]07-25-2024 09:38-0400Body fegklk175.64 [facility]07-25-2024 09:38-0400Body mass index (BMI) [Ratio]31 kg/g8BhzrjjwktPaulding County Hospital07-25-2024 09:38-0400Body zsqepu95.31 [facility]07-25-2024 09:38-0400Diastolic blood yagujfdd93 mm[Hg] [facility]07-25-2024 09:38-0400Heart rate81 /[facility]07-25-2024 09:38-0400Respiratory rate12 /[facility]07-25-2024 09:38-0400Systolic blood htofnysp182 mm[Hg] [facility]06-23-2023 11:00-0400Body omprcl198.18 cm Asif Ball Other [employer] Other 06-23-2023 11:00-0400Body mass index (BMI) [Ratio] 30.16 kg/u8Bhoztqcn Ball Other [employer] Other 06-23-2023 11:00-0400Body .36 kgBenranjeetmin Ball Other [employer] Other 06-23-2023 11:00-0400Diastolic blood rotxnhkm05 mm[Hg] Asif Ball Other [employer] Other 06-23-2023 11:00-0400Respiratory rate16 /Wilfredo Ball Other [employer] Other 06-23-2023 11:00-0400Systolic blood mm[Hg] Asif Ball Other [employer] Other 06-17-2023 10:15-0400Body fsinef634.18 Lawrence Purvis Other [employer] Other 06-17-2023 10:15-0400Body mass index (BMI) [Ratio] 29.94 kg/r3VyjtpxSofia Purvis Other [employer] Other 06-17-2023 10:15-0400Body bwcpbxakbho28.8 [degF]Sofia Hyun Other [employer] Other 06-17-2023 10:15-0400Body mfvutg79.73 kgSofia Hyun Other [employer] Other 06-17-2023 10:15-0400Diastolic blood kvwygtye86 mm[Hg] Sofia Hyun Other [employer] Other 06-17-2023 10:15-0400Respiratory rate20 /minSofia Hyun Other [employer] Other 06-17-2023 10:15-0763QsI0% (BldA) [Mass fraction]92 % Sofia Purvis Other [employer] Other 06-17-2023 10:15-0400Systolic blood mm[Hg] Sofiamiguel Purvis Other [employer] Other 06-14-2023 14:15-0400Body rdfoza645.18 cmAziza Nietor Other [employer] Other 06-14-2023 14:15-0400Body mass index (BMI) [Ratio] 30.38 kg/l2Gmaqinfg Virginiarbacher Other [employer] Other 06-14-2023 14:15-0400Body hpoazj40 kgJeyazanteddy Virginiarbacher Other [employer] Other 06-14-2023 14:15-0400Diastolic blood mm[Hg]Aziza Barraganbowen Other [employer] Other 06-14-2023 14:15-0400Systolic blood vedpuuxq304 mm[Hg] Aziza Byrne Other [facility] [employer] Other Encounters Encounter DateEncounter TypeCare ProviderFacilityStart: 03-11-2025 End: 01-46-2574mmiamdxrjcKxfaszub Gen DO Work Phone: [facility] Work Phone: Start: 03-11-2025 End: 50-21-2744Ojnmcvw encounter procedureCobalt Rehabilitation (Tbi) Hospitalranjeetfabio Blevins [facility] Work Phone: Start: 03-11-2025 End: 19-06-6256Fohlgkf encounter statusMartin Memorial Hospitaltart: 08-10-2024 End: 35-98-7420mlpxgxpqujBjhlfcvetSouthview Medical Center Work Phone: Start: 08-10-2024 End: 80-58-0140Icfyvzp encounter procedureSandhills [facility] Work Phone: Start: 06-24-2024 End: 98-90-7869bielywgmvyDtbrgysmsSouthview Medical Center Work Phone: Start: 06-24-2024 End: 05-68-8526Ztzsdwy encounter procedureFirjuan Physician Group-[facility] Work Phone: Start: 02-18-2024 End: 45-95-7339ucycalskrsYmxgzzycxSouthview Medical Center Work Phone: Start: 02-18-2024 End: 44-75-5650Uhudsaf encounter procedureSandhills Regional Medical Center Phys[facility] GroupMer[facility] Work Phone: Start: 01-29-2024 End: 51-27-7666csjfaopwkpXmsfqlcpsSouthview Medical Center Work Phone: start: 01-29-2024 End: 00-24-3237Gqptviy encounter procedureSandhills Regional [facility] Work Phone: Start: 01-02-2024 End: 25-46-9804rystwgixxyHxdacilbgMadison Health Work Phone: Start: 01-02-2024 End: 78-83-0308Rkkpquslq for general adult medical examination without abnormal findingsOhio State Health Systemtart: 01-02-2024 End: 61-84-9405Hvechhj encounter procedureSandhills Regional [facility] Work Phone: Start: 54-88-3243Ikk-patient / Non-visitSandhills Regional Medical Center [facility]-[place] [employer] Work Phone: Start: 97-03-7710Egdkqhj encounter statusOhio State Health Systemtart: 03-12-2023 End: 47-06-8004jtcqrzoddvVyjrcjfs Ball Other [employer] Other Start: 55-29-8057Afuxuyzoa encounterBenjamin BallFPG Ball Medical ClinicStart: 12-10-2022 End: 77-97-3253dfgiiepnryUehezihh Ball Other [employer] Other Start: 95-72-2844Wvbkwleng encounterBenjamin BallFPG [facility] Medical ClinicStart: 12-04-2022 End: 28-87-0554nesaylerbxRxhfpbhd Ball Other [employer] Other Start: 78-05-1677Jgoipdjhq encounterBenjamin BallFPG [facility] Medical ClinicStart: 11-30-2022 End: 87-90-5020xekdkhoujkUmfhsbwb Ball Other [employer] Other Start: 84-45-7572Wusevzddv for general adult medical examination without abnormal findingsBemeenu Blevins [facility] ClinicStart: 48-69-8507Zoicnouj preventive med est patient 40-64yrsBemeenu BlevinsAddy Blevins [facility] ClinicStart: 11-24-2022 End: 16-84-6966ieetajgtasCibwjp Bailey Other [facility] [employer] Other Start: 74-83-9743Ccvvwz outpatient visit 15 minutes Sofia HyunAddy Urgent Care ClydeStart: 11-21-2022 End: 06-80-4378xvevopuzjlAhkwczph Caty Other [facility] [employer] Other Start: 51-88-0234Bjsfbj outpatient visit 15 minutes Aziza HimaYANNI [facility] ClinicStart: 87-04-8464Unhvqsuvq for general adult medical examination without abnormal findingsDR ASIF BLEVINSCommunity Memorial Hospitaltart: 11-29-2021 End: 13-25-1551utcpreffpjBW ASIF BLEVINSFacility:A6Jytub: 11-29-2021 End: 16-67-4086Cpvmgtcif for general adult medical examination without abnormal findings ASIF BLEVINSFacility:K9Rhicg: 06-51-2493Hbyqb health examination Asif Blevins Other [facility] [employer] Other Start: 06-14-2021 End: 78-59-5893bmyahsggikDZDOYW ELI ROSSFacility:K3Suyav: 33-62-5120Pirhabwce for preprocedural laboratory examinationDR DECLAN Artis [facility] Start: 43-68-8583Jlvasktug for other preprocedural examinationDR DECLAN [facility] Campustart: 02-03-2021 End: 36-32-8474tpsfzmzehyUZ RICHARD M WIECEKFacility:B2Klvkh: 01-31-2021 End: 27-52-8598jqzasgpscpSH RICHARD M WIECEKFacility:K7Upjqi: 01-31-2021 End: 69-74-6392Wvnzjbjby for preprocedural laboratory examinationDR DELCAN SANTANARandyFacility:A8Vjgaa: 01-25-2021 End: 37-08-5406imypvipnatGL DECLAN SANTANARandyFacility:M3Dwdlk: 01-25-2021 End: 13-47-6256Tsjalkplw for other preprocedural examinationDR DECLAN LLANOS Facility:N3Ckkzr: 10-01-2017 End: 90-26-3336MiwacuwdprGOGTSelect Medical [facility] Procedures DateProcedureProcedure DetailPerforming ClinicianStart: 67-46-8115OON screening VIRGEN Garcia on above:Performed By: #### PSASC #### [facility] [address] [address] [address] Eliza Ngpression screeningBenjamin Ball Other Plan of Treatment DateCare ActivityDetailAuthorXR Knee - left 4 [facility] Immunizations Immunization DateImmunizationNotesCare AksnukgkJirkzzyu88-78-9303efwirqghb, injectable, madin kenrick canine kidney, preservative freeBenjamin Ball DO Work Phone: [facility]01-28-2021COVID-19 ModernaBenjamin Ball Other [facility]12-30-2020COVID-19 ModernaBenjamin Ball Other [facility] Payers DatePayer CategoryPayerPolicy [id number] [id number] [id number] 2..[id number] [id number] 2..[id number] [id number] [id number] Social History DateTypeDetailFacilitySex Assigned At [facility] [employer] Other Start: 11-30-2022 End: 91-87-9236Upxwark smoking status NHISNever smoked tobacco (finding) [facility] Systemtart: 72-25-4968Gsx Assigned At [facility]: 06-24-2024 End: 47-49-1391TsnUuto (finding)[facility] Clinical Notes 02-03-2021 to 06-24-2024 Note Date & ZivnVtcvMhybfkdh69-22-8015 Evaluation note* Diagnosis Onset Date Resolution Status Admit Date Elevated BP without diagnosis of hyperte nsion acuteJanuary 2024 3:04pmLeft hip painacuteJanuary 2024 3:04pmPrimary osteoarthritis of left hipacuteJanuary 2024 3:04pm [facility] Work Phone: [phone]) 684-597406-27-2023 Evaluation note* Encounter Date Diagnosis Assessment Notes Treatment Notes Treatment Clinical Notes Nov, Screening for colon cancer (ICD- 10 - Z12.11) [facility] [employer] Other 06-23-2023 Evaluation note* Encounter Date Diagnosis Assessment Notes Treatment Notes Treatment Clinical Notes Nov, Wellness examination (ICD-10 - Z 00.00) Healthy diet and exercise. Reviewed age-appropriate preventive testing recommended. Nov,utoimmune thyroiditis (ICD-10 - E06.3)Euthyroid, yearly TSH Nov,Other specified hypothyroidism (ICD-10 - E03.8) Nov,orderline learning disability (ICD-10 - R41.83)Family assisting w ADL Works at [employer] Nov,cute bronchitis due to other specified organisms (ICD-10 - J20.8) Instructed to use Robitussin or Mucinex for cough, saline or Flonase NS for congestion, Tylenol forpain and fever. Nov,Screening PSA (prostate specific antigen) (ICD-10 - Z12.5)Yearly PSA Nov,olon cancer screening (ICD-10 - Z12.11)DIscussed Cologuard vs colonoscopy [employer] Other 06-17-2023 Evaluation note* Encounter Date Diagnosis Assessment Notes Treatment Notes Treatment Clinical Notes Nov, Sore throat (ICD-10 - J02.9) Patient is concerned for strep throat. Rapid strep is negative. Discussed sore throat is likely related to postnasal drip causing inflammation. May use warm salt water gargles, topical throat sprays or throat lozenges, ibuprofen or Tylenol for discomfort. Nov,cute nasopharyngitis (ICD-10 - J00)Discussed with patient and family member that symptoms [...] no improvement after 7 days of antibiotic. [employer] Other 06-14-2023 Evaluation note* Encounter Date Diagnosis [...] by 7-10 days, patient should call the officeand will send in an antibiotic. Patient should follow up sooner if symptoms worsen. Patient and mother verbalizes understanding and agreement with treatment plan. [employer] Other 08-27-2021 NoteOPERATIVE NOTE OPERATION DATE: 02/03/2021 PREOPERATIVE DIAGNOSIS: Incarcerated umbilical hernia. POSTOPERATIVE DIAGNOSIS: Incarcerated umbilical hernia (containing omentum). PROCEDURE PERFORMED: Incarcerated umbilical hernia repair with partial omentectomy of incarcerated omentum. SURGEON: Declan Llanos MD HEAD OF ICT: STEPHANIE Keita. ANESTHESIA: General, 0.5% Marcaine for [...] taken to the PACU in fair condition.. [facility] Signed and Approved by: DR DECLAN LLANOS . 02/10/2021 06:37:00[facility] noteNo [facility] [employer] Other Evaluation note* Diagnosis Onset Date Resolution Status Hypothyroid acuteLearning disabilityacuteWellness examinationacuteScreening PSA (prostate specific antigen)noneactive [facility] Work Phone: Evaluation note* Diagnosis Onset Date Resolution Status Elevated BP without diagnosis of hyperte nsion acuteHypothyroidacuteLearning disabilityacuteLeft knee painacuteObesityacute Wellness examinationacuteScreening PSA (prostate specific antigen)noneactiveLeft hip painacutePrimary osteoarthritis of left hipacute [facility] Work Phone: Evaluation note* Diagnosis Onset Date Resolution Status Elevated BP without diagnosis of hyperte nsion acuteHypothyroidacuteLearning disabilityacuteLeft knee painacuteObesityacute Wellness examinationacuteScreening PSA (prostate specific antigen)noneactiveLeft hip painacutePrimary osteoarthritis of left hipacuteLeft hip painacutePrimary osteoarthritis of left hipacute [facility] Work Phone: Evaluation note* Diagnosis Onset Date Resolution Status Admit Date Elevated BP without diagnosis of hyperte nsion acuteJanuary 2024 3:04pmHypothyroidacuteJanuary 2024 3:04pmLearning disabilityacuteJanuary 2024 3:04pmLeft hip painacuteJanuary 2024 3:04pmPrimary osteoarthritis of left hipacuteJanuary 2024 3:04pm [facility] Work Phone: Evaluation note* Diagnosis Onset Date Resolution Status Admit Date Elevated BP without diagnosis of hyperte nsion acuteOctober 2024 10:29amHypothyroidacuteOctober 2024 10:29amLearning disabilityacuteOctober 2024 10:29amObesityacuteOctober 2024 10:29am Wellness examinationacuteOctober 2024 10:29amScreening PSA (prostate specific antigen)noneactiveOctober 2024 10:29am [facility] Work Phone: History general Narrative - Reported* Type Description Date Medical History Hypothyroid Surgical Historyhernia [id number] [employer] Other History general Narrative - Reported* Type Description Date Medical History Hypothyroid Medical HistoryMental disabilityMedical HistoryAdult hypothyroidismSurgical Historyhernia [id number] HistorySEE SURGICAL HX [employer] Other Reason for referral (narrative)No reason for referral information availableMercy Health Lorain Hospital Work Phone: Summary Purpose Family History Relationship Condition Age at Onset Recorded Date/T raudel father Unknown Advance Directives Advance Directive Response Recorded Date/ Time Advance Directives No December 05 11:14am Advance Directive Response Recorded Date/ Time Advance Directives No December 05 10:14am Chief Complaint and Reason for Visit Chief Complaint Wellness Reason for Visit Hypothyroid Learning disability Wellness examination Screening PSA (prostate specific antigen) Chief Complaint Wellness Leg pain/can't walkReason for VisitElevated BP without diagnosis of hypertension Hypothyroid Learning disability Left knee pain Obesity Wellness examination Screening PSA (prostate specific antigen) Left hip pain Primary osteoarthritis of left hip Chief Complaint Wellness Leg pain/can't walk 1 month/L Leg PainReason for VisitElevated BP without diagnosis of hypertension Hypothyroid Learning disability Left knee pain Obesity Wellness examination Screening PSA (prostate specific antigen) Left hip pain Primary osteoarthritis of left hip Left hip pain Primary osteoarthritis of left hip Chief Complaint Admit Date High BP June 24, 2024 3 :04pm Reason for Visit Admit Date Elevated BP without diagnosis of hyperte nsion June 24, 2024 3:04pm Hypothyroid June 24, 2024 3 :04pm Learning disability June 24, 2024 3 :04pm Left hip pain June 24, 2024 3 :04pm Primary osteoarthritis of left hip Janua ry 2024 3:04pm Chief Complaint Admit Date High BP June 24, 2024 3 :04pm cough, fever, body aches, chills August 102024 1:40pm Reason for Visit Admit Date Elevated BP without diagnosis of hyperte nsion June 24, 2024 3:04pm Left hip pain June 24, 2024 3 :04pm Primary osteoarthritis of left hip Janua ry 2024 3:04pm Chief Complaint Admit Date Wellness October 2nd, 2025 10 :29am Reason for Visit Admit Date Elevated BP without diagnosis of hyperte nsion March 11, 2025 10:29am Hypothyroid March 11, 2025 10 :29am Learning disability March 11, 2025 10 :29am Obesity March 11, 2025 10 :29am Wellness examination March 11, 2025 1 0:29am Screening PSA (prostate specific antigen ) March 11, 2025 10:29am Additional Source Comments (unrecognized sect ion and content) No Status Records FoundNo Status Records Found INFORMATION SOURCE (unrecogn ized section and content) DATE CREATED AUTHOR 11/27/2017 [facility] DATE CREATED AUTHOR AUTHOR'S ORGANIZ ATION 12/01/2021 [facility] REASON FOR VISIT (unrecogniz ed section and content) Cough-COVID NegativeSORE THR OAT, STREPWELLNESSNo InformationLab Resultscologuard results Care Teams (unrecognized sec tion and content) Team Status: Active Member Role Status Dates Asif Blevins DO Primary Care Provider Active Team Status: Inactive Member Role Status Dates Asif Blevins DO Primary Care Provide r, Attending Provider Active Start: June 24, 2024 End: June 24, 2024 Team Status: Active Member Role Status Dates Asif Blevins DO Primary Care Provide r, Attending Provider Active Start: December 17, 2023 Team Status: Inactive Member Role Status Lamont Blevins DO Primary Care Provide r, Attending Provider Active Start: January 02, 2024 End: January 02, 2024 Team Status: Inactive Member Role Status Lamont Blevins DO Primary Care Provide r, Attending Provider Active Start: January 29, 2024 End: January 29, 2024 Team Status: Inactive Member Role Status Lamont Blevins DO Primary Care Provide r, Attending Provider Active Start: February 18, 2024 End: February 18, 2024 Team Status: Inactive Member Role Status Dates Asif Blevins DO Primary Care Provide r, Attending Provider Active Start: August 10, 2024 End: August 10, 2024 Team Status: Inactive Member Role Status Lamont Blevins DO Primary Care Provider Active Start: March 11, 2025 End: March 11louis Blevins DOAttending ProviderActiveStart: March 11, 2025 End: March 11, 2025 Goals (unrecognized section and content) Goals may [...] BE BASED ON THE PRIMARY CLINICAL RECORDS. [facility] [employer] [facility]. provides no warranty or guarantee of the accuracy or completeness of information in this document.
--- NOTE | 2025-04-01 15:14 | P.WCHP_ITS ---
Wound Care H&P: HPI History of Present Illness Narrative: Oskar is a pleasant 60 year old gentleman with history of cognitive disability who present for routine nail care. He states his great toenails are painful currently but has no other complaints in regards to his feet at this time. [facility] Medical History (Updated 04/01/25 @ 15:15 by CAT Berrios) Hypothyroidism ?E03.9 - Hypothyroidism, unspecified (ICD-10) Pain in left hip ?M25.552 - Pain in left hip (ICD-10) Surgical History (Updated 03/20/24 @ 15:22 by Jalyn Friend, ABRIL) H/O umbilical hernia repair ?Z98.890 - Other specified postprocedural states (ICD-10) ?Z87.19 - Personal history of other diseases of the digestive system (ICD-10) Family History (Updated 03/20/24 @ 15:24 by Jalyn Friend RN) Other Family history of CHF (congestive heart failure) Family history of cancer Family history of diabetes mellitus Family history of hypertension Family history of myocardial infarction Social History (Updated 03/20/24 @ 15:26 by Jalyn Friend, ABRIL) Within the past year, how often did you have a drink containing alcohol: never Score interpretation: A score less than 4 is consistent with normal alcohol consumption. Smoking status: Never smoker Second hand tobacco smoke exposure: No Non-prescribed substance use: denies use Previous occupational history: [employer]- [employer] Highest level of school completed/degree received: high school graduate Meds Home Medications and Allergies Home Medications ?Medication ?Instructions ?Recorded ?Confirmed ?Type levothyroxine 100 mcg tablet 100 mcg PO DAILY 03/20/24 03/23/24 History (Synthroid) meloxicam 7.5 mg tablet 7.5 mg PO DAILY 03/20/24 History Allergies Allergy/AdvReac Type Severity Reaction Status Date / Time No Known Drug Allergies Allergy Verified 03/20/24 15:15 Exam Narrative: Exam Narrative: Dermatologic: Toenails 1 through 10 are elongated, thickened, and mycotic. No ulcerative or preulcerative lesions are noted. Skin is diffusely dry Vascular: DP and PT pulses are 2/4 bilaterally. Digital hair is normal. Feet are warm to the touch. No edema noted. Neurologic: Achilles reflexes are 1/4 bilaterally. Vibratory sensation is inta ct. Protective sensation is decreased. Monofilament testing reveals the patient detected 0/5 areas tested on the right foot and 2/5 areas tested on the left. Musculoskeletal: No gross deformity. Range of motion and strength is within normal limits. Assessment and Plan Assessment and Plan (1) Tinea unguium: (2) Disorder of nail due to another disorder: (3) Ambulatory dysfunction: (4) Pain around toenail: Plan Routine nail care performed without incident. Follow-up in 3 months. Acute Procedures Podiatry Nail Debridement Class B Findings Advanced trophic changes as evidenced by any three of the following: nail changes (thickening) Class C Findings Claudication: No Temperature changes: No Edema: No Nail debridement paresthesia (abnormal spontaneous sensations in the feet): Yes Burning: Yes Qualifies If: Qualifiers If:: A patient qualifies for nail debridement if they have: 1 class A finding (Q7) 2 class B findings (Q8) OR 1 class B & 2 class C findings in addition to a primary condition (Q9) Nail Procedure Nail Procedure Time out: Yes Nail procedure: other (toenail debridement 1-10) Number of affected nails: 10 Location (toes): left and right Procedure successful: Yes Patient tolerated procedure: well and no complications Additional comments: Toenails 1 through 10 were sharply debrided with nail nippers without incident and to the patient's satisfaction. He noted pain relief postprocedure.
== END 2025-04-01 14:51 | disposition home or self-care (01) ==
LOC: WC 14:52
PROVIDERS: PCP Internal Medicine; Visit Provider Physician Assistant
DX: B35.1 Tinea unguium (principal); L60.8 Other nail disorders; R26.89 Other abnormalities of gait and mobility; M79.675 Pain in left toe(s); M79.674 Pain in right toe(s)
CPT/HCPCS: 11721

== ENCOUNTER 2025-04-14 09:59 | Outpatient (OUT) | payer OTHER, SELFPAY ==
--- OUTSIDE RECORDS SUMMARY | 2024-06-15 09:00 | XMS_ITS ---
Author Organization [facility] Address [address] [place] [address] Care Team Providers Care Cell Support Operator Name Role Phone SLOAN NICHOLS DO Primary Care Provider John Myles Unavailable [phone] REASON FOR VISIT left hip recheck Medications Medication SIG (Take, Route, Frequency, Duration) Notes Start Date End Date Status Mobic 15 mg 1 tab(s) orally once a day for 3 0 day(s) 4ActiveSynthroidActiveTylenolActive Encounters Encounter Location Date Provider Diagnosis [facility] [facility] [address] [place] [address] 06/15/2024 John Carlson Plan Of Treatment No Information Progress Notes * HERB CARDENAS SDOB: [birth year] (60 yo M)Acc No.[id number]:06/15/2024 Patient:?HERB CARDENAS Saud :?John Carlson DODOB:1965???Age:59 Y ???Sex:MaleDate:06/15/2024Phone:[phone]:[id number]Pcp:SLOAN NICHOLS DO Subjective: * Chief Complaints: * 1 . Left hip recheck. * Medical History: * Medications: T aking Tylenol , Taking Synthroid , Taking Mobic 15 mg tablet 1 tab(s) orally once a day Objective: * Vitals: Assessment: Plan: * Treatment: Forms: * Images: * Electronic signature of John Carlson DO on 04/14/2025 at 10:05 AM ESTSign off status: Pending * Provider: Vidal Carlson DO Date: 0 06/15/2024 Generated for Printing/Faxing/eTransmitting on:?04/14/2025 10:05 AM EST
--- OUTSIDE RECORDS SUMMARY | 2025-04-14 10:05 | XMS_ITS | Clinical Summary ---
Author Organization [facility] Healthcare Address [address] [place] [address] Care Team Providers Care Web Producer Name Role Phone Unavailable Primary Care Provider Unavailabl e Social History Tobacco UseTypesPacks/DayYears UsedDateSmoking Tobacco: Never AssessedSex and Gender InformationValueDate RecordedSex Assigned at BirthNot on fileLegal Sex Male10/08/2022 8:32 PM EDTGender IdentityNot on fileSexual OrientationNot on file Last Filed Vital Signs Vital SignReadingTime TakenCommentsBlood Hkvwpdfe232/[id number] 12:00 PM EDT Pulse--Temperature--Respiratory Rate--Oxygen Saturation--Inhaled Oxygen Concentration--Mmpajx00.4 kg (186 lb)02/16/2021 12:00 PM MYIRaqklx661.2 cm (5' 7 )02/16/2021 12:00 PM EDTBody Mass Index29.1309 12:00 PM EDT Plan of Treatment Not on file
--- OUTSIDE RECORDS SUMMARY | 2025-04-14 10:05 | XMS_ITS | Patient Health Record ---
Author Organization [facility] Address [address] [place] [address] Care Team Providers Care Media Production Support Manager Name Role Phone SIMONE WEBERSLOAN Primary Care Provider John Myles Unavailable [phone] Allergies No Known Allergies Reason For Referral No Information Medications Medication SIG (Take, Route, Frequency, Duration) Notes Start Date End Date Status Mobic 15 mg 1 tab(s) orally once a day for 3 0 day(s) 4ActiveSynthroidActiveTylenolActive Social History Tobacco Use: Social History Observation Description Date Details (start date - stop date) Never Smoker NA - NA AUDIT-C (Standard) Question Answer Notes Did you have a drink containing alcohol in the p ast year? No Htqlco4MoiigqxipkiingRtbmyhglSwoqmxj Control (Standard) Question Answer Notes Tobacco use: Nonsmoker Problems Problem Type SNOMED Code ICD Code Onset Dates Problem Status W/U Status Risk Notes Problem [id number] Osteoarthritis o f left hip, unspecified osteoarthritis type (M16.12) Activeconfirmed Encounters Encounter Location Date Provider Diagnosis [facility] [address] [place] [address] 05/04/2024 John Carlson Osteoarthritis of le ft hip, unspecified osteoarthritis type M16.12 [facility] [address] [place] [address] 05/11/2024 John Carlson Assessments Encounter Date Diagnosis (ICD Code) Assessment Notes Treatment Notes Treatment Clinical Notes Section Notes 05/04/2024 Osteoarthritis of le ft hip, unspecified osteoarthritis type (ICD-10 - M16.12) Left hip OA05/04/2024Other Herb doing very well today in regards to his left hip. Retreatment relief with injection. Discussed treatment options would like to hold off on any totalsat this time. Will see him back in the office in 6 weeks for further discussion Left hip OA Plan Of Treatment Pending Test Test Name Order Date PT/OT - Eval and Treat 05/11/2024 EKG 03/17/2024 DJM-Hip Injection with Inter ventional Radiology (Skin Injection: 1% Lidocaine without Epinephrine, Hip Injection: 2ml 0.2.5% Marcaine, 2ml 1% Lidocaine, 1ml Depomedrol 80mg/ml) 03/02/2024 Chest 2 views - [id number] 03/17/2024 Insurance Providers Payer Name Payer Address Payer Phone Subscriber Number Group Number Insured Name Patient Relationship to Insured Coverage Start Date Coverage End Date Gratis [address] [place] [address] [id number] HERB CARDENAS Self - patient is the insured Medical (General) History Medical History History ICD Code Hypothyroidism Healthcare workerSurgical History Surgery Date(Month/Year) Left intra-articular hip injection 03/23
--- OUTSIDE RECORDS SUMMARY | 2025-04-14 10:09 | XMS_ITS | CCD ---
Author Organization [facility] Care Team Providers Care Respiratory Supervisor Name Role Phone WALLY ZIMMER Unavailable Unavailable MCKINLEY ANAYA Unavailable Unavailab migue JAIMES, [facility] Primary Care Unavailable THEODORE, VIRGEN KINSEY Consulting Unavailable RIVERA, LEANNA Attending Unavailable RIVERA, LEANNA Admitting Unavailable WIECEK, DR DECLAN Artis Admitting Unavailable WIECEK, DR DECLAN Artis Attending Unavailable WIECEK, DR DECLAN Artis Consulting Unavailable THEODORE, [facility] Primary Care Unavailable WIECEK, DR DECLAN Artis Attending Unavailable WIECEK, DR DECLAN Artis Admitting Unavailable ROSS, [facility] Primary Care Unavailable WIECEK, DR DECLAN Artis Attending Unavailable WIECEK, DR DECLAN Artis Consulting Unavailable WIECEK, DR DECLAN Artis Admitting Unavailable ROSS, VIRGEN KINSEY Primary Care Unavailable CARISSA CACERES Consulting Unavailable GEN, DR LISA Admitting Unavailable GEN, DR LISA Attending Unavailable GEN, DR LISA Consulting Unavailable GEN, DR LISA Primary Care Unavailable Aziza Byrne Unavailable [phone] Sofia Purvis Unavailable Asif Blevins Unavailable Asif Blevins DO Primary Care Provider Asif Blevins DO Attending Provider Medications Current Medications MedicationDrug Class(es)DatesSig (Normalized)Sig (Original)azithromycin 40 mg/ml oral suspension (4 sources)Macrolide AntimicrobialStart: 80-85-6512fdni 12.5 mL by mouth once dailyAzithromycin 200 MG/5ML 12.5 ML Orally daily for 3 days Nov, Active fluticasone propionate 0.05 mg/actuat metered dose nasal spray (12 sources)CorticosteroidStart: 19-86-3309Icdghwcraxi Propionate 50 mcg/actuation spray,suspension Active 1 SPRAY INTRANASAL Daily December 16, 2023 12:00am Complies with drug therapyStart: 83-35-0870wvaw 1 spray(s) nasal route once dailyFluticasone Propionate 50 MCG/ACT 1 spray in each nostril Nasally Once a day for 30 days Nov, Activelevothyroxine sodium 0.1 mg oral tablet (20 sources)l-ThyroxineStart: 02-23-2025 End: 69-51-4243raxm 1 tablet by mouth once dailyLevothyroxine (Synthroid) 100 mcg tablet Active 100 MCG PO Daily 90 March 11, 2025 11:10am Complies with drug therapyStart: 12-16-2023 End: 59-30-6478bvtp 1 tablet by mouth once daily in the morningLevothyroxine (Synthroid) 100 mcg tablet Discontinued 0 .ROUTE .COMPLEX December 06, 2024 4:38pm February 23, 2025 11:08am TAKE 1 TABLET BY MOUTH EVERY DAY IN THE MORNING ON EMPTY STOMACH FOR 90 DAYSStart: 12-16-2023 End: 04-01-1538ilri 1 tablet by mouth once dailyLevothyroxine 100 [...] tablet (10 sources)Nonsteroidal Anti-inflammatory DrugStart: 01-24-2024 End: 63-86-5206kpgf 1 tablet by mouth once dailyMeloxicam 15 mg tablet Active 15 MG PO Daily January 24, 2024 2:18pm take w/ bkfst Complies with drug therapyoseltamivir 6 mg/ml oral suspension (2 sources)Neuraminidase InhibitorStart: 46-48-1816gvhp 75 mg by mouth twice dailyOseltamivir (Tamiflu) 6 mg/mL suspension for reconstitution Active 75 MG PO Twice daily 2024 1:00am Complies with drug therapy Completed/Discontinued Medications MedicationDrug Class(es)DatesSig (Normalized)Sig (Original)amoxicillin 875 mg / clavulanate 125 mg oral tablet (5 sources)Penicillin-class AntibacterialStart: 31-89-0105jvfh 1 tablet by mouth every twelve hoursAmoxicillin-Pot Clavulanate 875-125 MG 1 tablet Orally every 12 hrs for 7 days Nov, Not-Takingbaclofen 20 mg oral tablet (8 sources)gamma-Aminobutyric Acid-ergic AgonistStart: 02-20-2024 End: 54-62-6728iuxm 1 tablet by mouth once daily at bedtimeBaclofen 20 mg tablet Discontinued 0 .ROUTE .COMPLEX 90 February 20, 2024 6:11pm June 24, 2024 4:30pm TAKE 1 TABLET BY MOUTH EVERYDAY AT BEDTIMEStart: 01-29-2024 End: 06-98-9868xdlf 1 tablet by mouth once daily at bedtimeBaclofen 20 mg tablet Discontinued 20 MG PO Daily at bedtime January 29, 2024 12:00am February 20, 2024 6:11pm Problems Active Problems Problem ClassificationProblemDateDocumented DateEpisodic/ChronicAbdominal hernia (6 sources)Umbilical hernia with obstruction, without gangrene; Translations: [Umbilical hernia without obstruction or gangrene]Onset: 20-79-6369RlqoouzeXsxqw bronchitis (1 source)Acute bronchitis due to other specified organismsEpisodicDevelopmental disorders (16 sources)Mental retardation; Translations: [Unspecified intellectual disabilities]18-37-4732UokjrdcPidvsgbeacncg disorders (1 source)Borderline intellectual functioningEpisodicDisorders of lipid metabolism (1 source)Pure hypercholesterolemia, unspecified; Translations: [PURE HYPERCHOLESTEROLEMIA UNSPEC]Onset: 29-15-1799BnbtdjuCrgjarlzwa disorders (1 source)Gastro-esophageal reflux disease without esophagitis; Translations: [GERD WITHOUT ESOPHAGITIS]Onset: 86-48-0047WlwitjzWdrbqoxksxaots (10 sources)Osteoarthritis of left hip joint; Translations: [Unilateral primary osteoarthritis, left hip]18-77-5287KgqmuwzDfuyh circulatory disease (6 sources)Elevated blood-pressure reading without diagnosis of hypertension; Translations: [Elevated blood-pressure reading, without diagnosis of hypertension]36-88-4186HynvlrjaBysbr circulatory disease (4 sources)Elevated blood-pressure reading, without diagnosis of hypertension; Translations: [Elevated blood pressure reading without diagnosis of hypertension]90-19-8652VywadmkdKktiw connective tissue disease (1 source)Spasm; Translations: [Muscle spasm of calf]EpisodicOther non-traumatic joint disorders (8 sources)Pain in left knee; Translations: [Left knee pain]49-64-6266Yosckigu Other non-traumatic joint disorders (5 sources)Hip pain; Translations: [Pain in left hip]85-18-3999AluaodmlDtavk non-traumatic joint disorders (5 sources)Pain in left hip; Translations: [Pain in joint, pelvic region and thigh]96-67-3758PsndehbrSmkdu nutritional; endocrine; and metabolic disorders (7 sources)Obesity; Translations: [Obesity, unspecified]66-51-8871DzekqzrYpeqa nutritional; endocrine; and metabolic disorders (2 sources)Obesity, [...] for screening for malignant neoplasm of colon]Onset: 35-87-0941MamoyyjnKvays upper respiratory infections (3 sources)Acute upper respiratory infection, unspecified; Translations: [Acute pharyngitis, unspecified]EpisodicResidual codes; unclassified (1 source)Other specified personal risk factors, not elsewhere classified; Translations: [Personal risk factor]EpisodicThyroid disorders (20 sources)Hypothyroidism, unspecified; Translations: [Autoimmune thyroiditis] Onset: 83-77-8633PwbiketPbqijwijxhng (1 source)Unknown / UNK(Unknown)Onset: 12-98-3400Frikjjztboei (3 sources)CONTACT W/AND (SUSP) EXPOS COVID-19; Translations: [CONTACT W/AND (SUSP) EXPOS COVID-19]Onset: 18-47-9244Mrmww infection (1 source)COVID-19; Translations: [COVID-19]Onset: 06-19-2021 Past or Other Problems Problem ClassificationProblemDateDocumented DateEpisodic/ChronicOther aftercare (1 source)Other correction (current) drug therapy; Translations: [OTH [facility]CI CURRENT DRUG THERAPY]Onset: 17-82-4651GaojsledTzssvfcstqii (1 source)CONTACT W/AND (SUSP) EXPOS COVID-19; Translations: [CONTACT W/AND (SUSP) EXPOS COVID-19]Onset: 06-14-2021 Results Test NameValueInterpretationReference RangeFacilityBasophils Auto (Bld) [#/Vol] on 94-89-4746Rujdmusex (Bld) [#/Vol]0.0 10 3/uL0.0-0.1FC[facility] HospitalBasophils/100 WBC Auto (Bld)on 35-90-4200Flieyzwfe/100 WBC (Bld)0.4 % 0.2-2.0[facility] CampusCholesterol in LDL Calc [Mass/Vol]on 40-41-4726Rwlcfpzbxpg in LDL [Mass/Vol]101.0 mg/dLFirelands Regional Medical Center South CampusComment on above:<100 mg/dl ACBTAMC310-420 mg/dl NEAR OR ABOVE EFGJTSL846- 159 mg/dl BORDERLINE QIAM659-151 mg/dl HIGH>190 mg/dl VERY HIGHCholesterol in VLDL Calc [Mass/Vol]on 52-84-8290Agxaxxemova in VLDL [Mass/Vol]47.8 mg/dL [facility] CampusEosinophils/100 WBC Auto (Bld)on 12-17-2023 Eosinophils/100 WBC (Bld)2.1 %0.9-7.0[facility] Erythrocyte distribution width Auto (RBC) [Ratio]on 67-11-8878Tqffdjqjuzp distribution width (RBC) [Ratio]13.2 %11.0-15.0[facility] Estimated glomerular filtration rate (GFR) non- Americanon 12-17-2023 GFR/1.73 sq M.predicted among non-blacks MDRD (S/P/Bld) [Vol rate/Area]60 mL/min/{1.73_m2}>=60[facility] CampusGlobulin Calc (S) [Mass/Vol]on 01-80-7334Djlrozuk (S) [Mass/Vol]3.9 g/dLFirelands Regional Medical Center South CampusGlucose mean value [Mass/volume] in Blood Estimated from glycated hemoglobinon 83-50-5182Wvheknp glucose Estimated from glycated hemoglobin (Bld) [Mass/Vol]114 mg/dLFirelands Regional Medical Center South CampusHematocrit Auto (Bld) [Volume fraction]on 67-96-1281Tyifujlnaw (Bld) [Volume fraction]45.5 %42.0-54.0 [facility] CampusHemoglobin [Mass/volume] in Bloodon 12-17-2023 Hemoglobin (Bld) [Mass/Vol]15.0 g/dL14.0-18.0[facility] Laboratory - Chemistry and Chemistry - challengeon 79-90-8132Luwhvpx [Mass/Vol] 3.8 g/dL3.4-5.0[facility] CampusALP [Catalytic activity/Vol]109 U/C76-033BpgrsbvsvFirelands Regional Medical Center South CampusALT [Catalytic activity/Vol]61 U/L 16-63[facility] CampusAST [Catalytic activity/Vol]28 U/L15-37 [facility] CampusBilirubin [Mass/Vol]0.4 mg/dL0.2-1.0[facility] CampusCalcium [Mass/Vol]8.8 mg/dL8.5-10.1FC[facility] HospitalChloride [Moles/Vol]105 mmol/L07-529OqnvwsxizFirelands Regional Medical Center South CampusCholesterol [Mass/Vol]197 mg/dL<=200[facility] Cholesterol in HDL [Mass/Vol]49 mg/oR69-41ZxafifmckFirelands Regional Medical [facility] Campus Comment on above:> or =60 mg/dl - LOW CARDIOVASCULAR RISK<40 mg/dl - HIGH CARDIOVASCULAR RISKCO2 [Moles/Vol]30.3 mmol/L21.0-32.0[facility] CampusCreatinine [Mass/Vol]1.24 mg/dL0.70-1.30[facility] GFR/1.73 sq M.predicted MDRD (S/P/Bld) [Vol rate/Area]mL/min/{1.73_m2}>=60 [facility] CampusGlucose [Mass/Vol]100 mg/rU59-220EfmmerhpuFirelands Regional Medical Center South CampusPotassium [Moles/Vol]4.1 mmol/L3.5-5.1FC[facility] HospitalProtein [Mass/Vol]7.7 g/dL6.4-8.2[facility] Sodium [Moles/Vol]142 mmol/G262-833FbyqgdbiqFirelands Regional Medical Center South CampusTriglyceride [Mass/Vol]239 mg/dLHigh<=150Fire[facility] CampusTSH Qn2.480 m[IU]/L0.358-3.740[facility] CampusUrea nitrogen [Mass/Vol]20.0 mg/dLHigh7.0-18.0[facility] CampusUrea nitrogen/Creatinine [Mass ratio]16.1 mg/mgFirelands Regional Medical Center South CampusLaboratory - Hematology and Cell countson 08-07-3553LcS9o (Bld) [Mass fraction]5.6 %4.5-6.2FC[facility] HospitalComment on above:ADA RECOMMENDED LIMIT 4.0 - 6.0ADA THERAPEUTIC TARGET < 7.0ACTION SUGGESTED> 7.0Immature granulocytes/100 WBC (Bld) 0.6 %High0.0-0.5FC[facility] HospitalLeukocytes [#/volume] corrected for nucleated erythrocytes in Blood by Automated counon 73-93-6243YXU corrected for nucl RBC Auto (Bld) [#/Vol]10.5 10 3/uL4.0-11.0[facility] CampusLymphocytes Auto (Bld) [#/Vol]on 64-13-0547Gwezqhuraqp (Bld) [#/Vol]2.4 10 3/uL1.2-3.8[facility] CampusLymphocytes/100 WBC Auto (Bld)on 15-46-1593Tykhoxdfkqr/100 WBC (Bld)23.2 %20.5-60.0[facility] Auto (RBC) [Entitic mass]on 71-27-4692TZW (RBC) [Entitic mass]28.7 pg 25.9-34.0[facility] CampusMCHC Auto (RBC) [Mass/Vol]on 19-45-7809EAEC (RBC) [Mass/Vol]33.0 g/dL29.9-35.2FC[facility] HospitalMCV Auto (RBC) [Entitic vol]on 38-76-9353DND (RBC) [Entitic vol]87.0 fL 80.0-94.0[facility] CampusMonocytes Auto (Bld) [#/Vol]on 83-20-5070Dyjdjqzvs (Bld) [#/Vol]1.0 10 3/uLHigh0.3-0.8[facility] CampusMonocytes/100 WBC Auto (Bld)on 59-49-0022Riamxyvoy/100 WBC (Bld) 9.4 %1.7-12.0[facility] CampusNeutrophils Auto (Bld) [#/Vol]on 63-33-7165Jbwldoswigr (Bld) [#/Vol]6.8 10 3/uLHigh1.4-6.5FC[facility] HospitalNeutrophils/100 WBC Auto (Bld)on 97-18-0582Clutlgqpoju/100 WBC (Bld)64.3 %43.0-75.0[facility] CampusNo Panel Informationon 75-78-1292Pqhcknhrbbp # (Auto)0.2 10 3/uL0.0-0.7FC[facility] HospitalImmature Granulocyte # (Auto)0.06 10 3/uLHigh0.00-0.03[facility] CampusProstate Specific Antigen Screen0.46 ng/mL<=4.00[facility] CampusPlatelet mean volume Auto (Bld) [Entitic vol]on 12-17-2023 Platelet mean volume (Bld) [Entitic vol]9.2 fLLow9.5-13.5FC[facility] HospitalPlatelets Auto (Bld) [#/Vol]on 78-47-2341Sxywpehor (Bld) [#/Vol] 214 10 3/nA165-732PdgelgcdyFirelands Regional Medical Center South CampusRBC Auto (Bld) [#/Vol]on 67-00-5862FTH (Bld) [#/Vol]5.23 10 6/uL4.70-6.10[facility] Hospitalerum or plasma albumin/globulin mass ratioon 20-10-5522Mxtnsfg/Globulin [Mass ratio]1.0 {ratio}[facility] Hospitalerum or plasma anion gap determinationon 63-20-3383Rxkar gap [Moles/Vol]10.8 mmol/LFLima Memorial Hospitalerum or plasma total cholesterol/high density lipoprotein (HDL) cholesterol mass maury 06-07-1294Jmfnycvzbqv.total/Cholesterol in HDL [Mass ratio]4.0 {ratio}[facility] CampusComment on above:3.3 - 4.4 LOW RISK4.4 - 7.1 AVERAGE RISK7.1 - 11.0 MODERATE RISK>11.0 HIGH RISKQuick Strepon 11-24-2022S. pyogenes Org specific cx Ql (Throat)NegativePhoenix S&T Other Quick StrepPhoenix S&T Other cbc AUTO DIFFon 10-92-0222PZEC #0.1 103/ulNormal 0.0-0.1The [facility] HospitalComment on above:Performed By: #### CBC #### [facility] [address] [address] [address] Eliza BarnesBasophils/100 WBC (Bld)0.6 %Normal0.2-2.0[facility] Comment on above:Performed By: #### CBC #### [facility] [address] [address] [address] Eliza Musa #0.1 103/ulNormal0.0-0.7The [facility] HospitalComment on above: Performed By: #### CBC #### [facility] [address] [address] [address] Eliza Chuosinophils/100 WBC (Bld)1.7 %Normal0.9-7.0[facility] Comment on above:Performed By: #### CBC #### [facility] [address] [address] [address] Eliza Churythrocyte distribution width (RBC) [Ratio]13.6 %Tfresg23.0-15.0 [facility] HospitalComment on above:Performed By: #### CBC #### [facility] [address] [address] [address] Eliza BarnesHematocrit (Bld) [Volume fraction]48.3 %Pafuth89.0-54.0The [facility] HospitalComment on above:Performed By: #### CBC #### [facility] [address] [address] [address] Eliza BarnesHemoglobin (Bld) [Mass/Vol]15.7 g/pNMurtym87.0-18.0The [facility] HospitalComment on above:Performed By: #### CBC #### [facility] [address] [address] [address] Eliza Cummings #0.09 10e3/ulCritically high0.00-0.03The [facility] on above:Performed By: #### CBC #### [facility] [address] [address] [address] Eliza Cummings %1.1 %Critically high0.0-0.5The [facility] HospitalComment on above:Performed By: #### CBC #### [facility] [address] [address] [address] Eliza Bray #2.1 103/ulNormal1.2-3.8The [facility] HospitalComment on above:Performed By: #### CBC #### [facility] [address] [address] [address] Eliza Millermphocytes/100 WBC (Bld)25.7 %Prwfgb74.5-60.0The [facility] HospitalComment on above:Performed By: #### CBC #### [facility] [address] [address] [address] Eliza ChaudhryUAL DIFF REQNONormalThe [facility] HospitalComment on above: Performed By: #### CBC #### [facility] [address] [address] [address] Eliza Leblanc (RBC) [Entitic mass]28.3 xvCgubmo86.9-34.0The [facility] HospitalComment on above:Performed By: #### CBC #### [facility] [address] [place] [address] Dr. Eliza JulesHC (RBC) [Mass/Vol]32.5 g/dJDcjfsb89.9-35.2The [facility] HospitalComment on above:Performed By: #### CBC #### [facility] [address] [place] [address] Dr. Eliza JulesV (RBC) [Entitic vol]87.0 xEEyvxsw84.0-94.0The [facility] HospitalComment on above:Performed By: #### CBC #### [facility] [address] [place] [address] Dr. Eliza Neri #0.7 103/ulNormal0.3-0.8The [facility] HospitalComment on above:Performed By: #### CBC #### [facility] [address] [place] [address] Dr. Eliza Zapataocytes/100 WBC (Bld)8.8 %Normal1.7-12.0[facility] Comment on above:Performed By: #### CBC #### [facility] [address] [place] [address] Dr. Eliza Choi #5.2 103/ulNormal1.4-6.5The [facility] HospitalComment on above:Performed By: #### CBC #### [facility] [address] [place] [address] Dr. Eliza Haganutrophils/100 WBC (Bld)62.1 %Rgkhpe83.0-75.0The [facility] HospitalComment on above:Performed By: #### CBC #### [facility] [address] [place] [address] Dr. Eliza Garzalet mean volume (Bld) [Entitic vol]9.3 fLCritically low 9.5-13.5The [facility] HospitalComment on above:Performed By: #### CBC #### [facility] [address] [place] [address] Dr. Eliza BarnesPLT218 103/acPxkceg962-202Zjb [facility] on above: Performed By: #### CBC #### [facility] [address] [address] [address] Eliza BarnesRBC5.55 106/ulNormal4.70-6.10The [facility] on above:Performed By: #### CBC #### [facility] [address] [address] [address] Eliza BarnesWBC8.3 103/ulNormal4.0-11.0[facility] HospitalComcorewell health ger[facility] on above: Performed By: #### CBC #### [facility] [address] [place] [address] Dr. lEiza BarnesGLYCOHEMOGLOBIN A1Con 13-45-8226FAG RECOMMENDATIONSEE Doctors HospitalComcorewell health ger[facility] hospital on above:Result Comment: ADA RECOMMENDED LIMIT 4.0 - 6.0 ADA THERAPEUTIC TARGET < 7.0 ACTION SUGGESTED > 7.0Performed By: #### A1C #### [facility] [address] [place] [address] Dr. Eliza BarnesGlucose [Mass/Vol]114 mg/dLNoGreene Memorial HospitalComcorewell health gerber hospital on above:Performed By: #### A1C #### [facility] [address] [place] [address] Dr. Eliza BarnesHbA1c (Bld) [Mass fraction]5.6 %Normal4.5-6.2[facility] on above:Performed By: #### A1C #### [facility] [address] [place] [address] Dr. Eliza BarnesLIPID PROFILEon 35-08-0905LIGQ-HDL RATIO NORMSEE [facility] AdministrationComcorewell [facility] ger[facility] on above:Result Comment: 3.3 - 4.4 LOW RISK 4.4 - 7.1 AVERAGE RISK 7.1 - 11.0 MODERATE RISK >11.0 HIGH RISKPerformed By: #### CMP, TSH, LIPID #### [facility] [address] [place] [address] Dr. Eliza BarnesCholesterol [Mass/Vol]210 mg/dLCritically high<=200The [facility] on above:Performed By: #### CMP, TSH, LIPID #### [facility] [address] [place] [address] Dr. Eliza Videsesterol in HDL [Mass/Vol]52 mg/vCKjsofr75-57Fqx [facility] on above:Performed By: #### CMP, TSH, LIPID #### [facility] [address] [address] [address] Eliza BarnesCholesterol in LDL [Mass/Vol]121.2 mg/dLCleveland Clinic Lutheran Hospital on above:Performed By: #### CMP, TSH, LIPID #### [facility] [address] [place] [address] Dr. Eliza Newby.total/Cholesterol in HDL [Mass ratio]4.0 {ratio} NormalThe [facility] on above:Performed By: #### CMP, TSH, LIPID #### [facility] [address] [place] [address] Dr. Eliza Knight NORMAL> or = 60 mg/dl - LOW CARDIOVASCULAR RISK <40 mg/dl - HIGH CARDIOVASCULAR RISKMartins Ferry HospitalComcorewell health gerber hospital on above:Performed By: #### CMP, TSH, LIPID #### [facility] [address] [place] [address] Dr. Eliza Vinson CALC NORMALSEE BELOWMartins Ferry HospitalComcorewell health gerber hospital on above:Result Comment: <100 mg/dl OPTIMAL 100 - 129 mg/dl NEAR OR ABOVE OPTIMAL 130 - 159 mg/dl BORDERLINE HIGH 160 - 189 mg/dl HIGH >190 mg/dl VERY HIGH Performed By: #### CMP, TSH, LIPID #### [facility] [address] [address] [address] Eliza BarnesTriglyceride [Mass/Vol]184 mg/dLCritically high<=150The [facility] on above:Performed By: #### CMP, TSH, LIPID #### [facility] [address] [place] [address] Dr. Eliza MenaLDL CALC36.8 mg/dLNormalThe [facility] HospitalComment on above: Performed By: #### CMP, TSH, LIPID #### [facility] [address] [address] [address] Eliza Oro 14(COMP METB)on 35-00-6290Vlcutdw [Mass/Vol]3.8 g/dLNormal 3.4-5.0The [facility]ment on above:Performed By: #### CMP, TSH, LIPID #### [facility] [address] [address] [address] Eliza BarnesAlbumin/Globulin [Mass ratio]0.9 {ratio}NormalThe [facility]hillment on above:Performed By: #### CMP, TSH, LIPID #### [facility] [address] [place] [address] Dr. Eliza Martines [Catalytic activity/Vol]99 U/WNpuxuk29-598Dwu [facility] on above:Performed By: #### CMP, TSH, LIPID #### [facility] [address] [place] [address] Dr. Eliza Adams [Catalytic activity/Vol]81 U/LCritically nkxd04-38Oyx [facility] on above:Performed By: #### CMP, TSH, LIPID #### [facility] [address] [place] [address] Dr. Eliza Ledezma gap [Moles/Vol]11.4 mmol/LNormalThe [facility] Comment on above:Performed By: #### CMP, TSH, LIPID #### [facility] [address] [place] [address] Dr. Eliza Crystal [Catalytic activity/Vol]31 U/CEwcpzx42-26Kxj [facility] on above:Performed By: #### CMP, TSH, LIPID #### [facility] [address] [place] [address] Dr. Eliza Vidalirubin [Mass/Vol]0.6 mg/dLNormal0.2-1.0[facility] Comment on above:Performed By: #### CMP, TSH, LIPID #### [facility] [address] [address] [address] Eliza BarnesCalcium [Mass/Vol]8.9 mg/dLNormal8.5-10.1The [facility] Comment on above:Performed By: #### CMP, TSH, LIPID #### [facility] [address] [address] [address] Eliza BarnesChloride [Moles/Vol]105 mmol/NCuneaz48-943Qao [facility] Comment on above:Performed By: #### CMP, TSH, LIPID #### [facility] [address] [place] [address] Dr. Eliza BarnesCO2 [Moles/Vol]29.5 mmol/EXatgsf94.0-32.0[facility] Comment on above:Performed By: #### CMP, TSH, LIPID #### [facility] [address] [place] [address] Dr. Eliza BarnesCreatinine [Mass/Vol]1.02 mg/dLNormal0.70-1.30The [facility] HospitalComment on above:Performed By: #### CMP, TSH, LIPID #### [facility] [address] [place] [address] Dr. Eliza ChuGFR-AF CAMEROONIAN>60Normal>=60The [facility] HospitalComment on above:Performed By: #### CMP, TSH, LIPID #### [facility] [address] [place] [address] Dr. Eliza Vergara-NON AF CAMEROONIAN>60Normal>=60The [facility] HospitalComment on above:Performed By: #### CMP, TSH, LIPID #### [facility] [address] [place] [address] Dr. Eliza BarnesGlobulin (S) [Mass/Vol]4.0 g/dLNormalThe [facility] HospitalComment on above:Performed By: #### CMP, TSH, LIPID #### [facility] [address] [place] [address] Dr. Eliza BarnesGlucose [Mass/Vol]103 mg/wZBbrupc95-786Esi [facility] Comment on above:Performed By: #### CMP, TSH, LIPID #### [facility] [address] [place] [address] Dr. Eliza BarnesPotassium [Moles/Vol]3.9 mmol/LNormal3.5-5.1The [facility] Comment on above:Performed By: #### CMP, TSH, LIPID #### [facility] [address] [place] [address] Dr. Eliza BarnesProtein [Mass/Vol]7.8 g/dLNormal6.4-8.2[facility] Comment on above:Performed By: #### CMP, TSH, LIPID #### [facility] [address] [place] [address] Dr. Eliza BarnesSodium [Moles/Vol]142 mmol/RDaaqah209-980Dxa [facility] Comment on above:Performed By: #### CMP, TSH, LIPID #### [facility] [address] [place] [address] Dr. Eliza BarnesUrea nitrogen [Mass/Vol]19.0 mg/dLCritically high7.0-18.0The [facility] HospitalComment on above:Performed By: #### CMP, TSH, LIPID #### [facility] [address] [place] [address] Dr. Eliza Johnson nitrogen/Creatinine [Mass ratio]18.6 mg/mgNormalThe [facility] County HospitalComment on above:Performed By: #### CMP, TSH, LIPID #### [facility] [address] [place] [address] Dr. Eliza Walker 15-68-4231YOR8.463 uIU/mLNormal0.358-3.740The [facility] HospitalComment on above:Performed By: #### CMP, TSH, LIPID #### [facility] [address] [place] [address] Dr. Eliza Vergarad-19 PCR ([facility])on 94-49-8135RBEU-CoV-2 (COVID-19) RNA MANFRED+probe Ql (Unsp spec)DetectedCritically abnormalNOT DETECTEDThe [facility] HospitalComment on above:Result Comment: This test is not yet approved or cleared by the [place] FDA. When there are no FDA-approved or cleared tests available, and other criteria are met, FDA can make tests available under an emergency access mechanism called an Emergency Use Authorization (EUA). The EUA for this test is supported by the [place] of Health and Human Service's (HHS's) declaration [...] be used). Performed By: #### CVDTBH #### [facility] [address] [place] [address] Dr. Eliza Brizuela-19 PCR ([facility])on 44-33-5223UKUC-CoV-2 (COVID-19) RNA MANFRED+probe Ql (Unsp spec)Not detectedNormalNOT DETECTEDThe [facility] Comment on above:Result Comment: This test is not yet approved or cleared by the [place] FDA. When there are no FDA-approved or cleared tests available, and other criteria are met, FDA can make tests available under an emergency access mechanism called an Emergency Use Authorization (EUA). The EUA for this test is supported by the [employer] of Health and Human Service's (HHS's) declaration [...] consistent with SARS-CoV-2.Performed By: #### CVDTBH #### [facility] [address] [place] [address] Arun Dawson 10-03-6906DFQNCYDAFNN ID: [id number]: Wally ZimmerService: (none)Author Type: PhysicianType: Progress NotesFiled: [...] the management ofthis patient's care with the Senior Salesforce Developer, if applicable. I also havereviewed and agree with the assessment and plan as stated above and agreewith all of its relevant components.Wally Zimmer [facility] 2017 3:11 PM NormalUniversity [facility]als [facility] Vital Signs Date TimeVital SignValuePerforming WqkluvdjcIijwldnc18-34-9969 10:38-0400Body kvdtod347.64 cmBenjamin Ball DO Work Phone: [facility]10-02-2025 10:38-0400 Body mass index (BMI) [Ratio]31.1 kg/r0Jkxbetfa Ball DO Work Phone: [facility]10-02-2025 10:38-0400 Body knpxyg53.71 kgBenjamin Ball DO Work Phone: [facility]10-02-2025 10:38-0400 Diastolic blood uknmqsiz02 mm[Hg]Asif Ball DO Work Phone: [facility]10-02-2025 10:38-0400 Heart yvje641 /minBenjamin Ball DO Work Phone: [facility]10-02-2025 10:38-0400 Respiratory rate12 /minBenjamin Ball DO Work Phone: [facility]10-02-2025 10:38-0400 Systolic blood xkzyeqjm745 mm[Hg]Asif Ball DO Work Phone: [facility]03-03-2025 13:45-0500 Body okpivi823.64 cmFirelands [facility]03-03-2025 13:45-0500Body mass index (BMI) [Ratio]29.5 kg/r6XtfnldlzrFirelands [facility]03-03-2025 13:45-0500Body jcpjytxltzv21.5 [degF][facility]03-03-2025 13:45-0500Body boxvzq51 kgFirelands [facility]03-03-2025 13:45-0500Diastolic blood mm[Hg][facility] 08-10-2024 13:45-0500Heart uagx005 /[facility] 08-10-2024 13:45-0500Respiratory rate18 /[facility] 08-10-2024 13:45-3224MgQ5% (BldA) [Mass fraction]98 %[facility]03-03-2025 13:45-0500Systolic blood zcmxapmr028 mm[Hg][facility]01-15-2025 15:13-0500Body vuafvz480.64 cmFirelands [facility]01-15-2025 15:13-0500Body mass index (BMI) [Ratio]30 kg/m2 [facility]01-15-2025 15:13-0500Body .53 kg [facility]01-15-2025 15:13-0500Diastolic blood ddqlhamz62 mm[Hg][facility]01-15-2025 15:13-0500Heart cydw264 /min [facility]01-15-2025 15:13-0500Respiratory rate12 /min [facility]01-15-2025 15:13-0500Systolic blood pujigijz324 mm[Hg][facility]09-10-2024 11:37-0400Body pkztyu856.64 [facility]09-10-2024 11:37-0400Body mass index (BMI) [Ratio]31 kg/q3IgfarljufFirelands Regional Medical [facility]09-10-2024 11:37-0400Body weight 87.14 kgFirelands [facility]09-10-2024 11:37-0400Diastolic blood vyxqvozu03 mm[Hg][facility]09-10-2024 11:37-0400Heart rate83 /[facility]09-10-2024 11:37-0400Respiratory rate12 /[facility]09-10-2024 11:37-0400Systolic blood fizyasew036 mm[Hg][facility]08-21-2024 08:43-0400Body jlivva160.64 [facility]08-21-2024 08:43-0400Body mass index (BMI) [Ratio]31 kg/t4GaarfheotFirelands Regional Medical Center [facility]08-21-2024 08:43-0400Body gyhfoo38.23 [facility]08-21-2024 08:43-0400Diastolic blood zdpugfph74 mm[Hg][facility] 01-29-2024 08:43-0400Heart rate92 /[facility] 01-29-2024 08:43-0400Respiratory rate16 /[facility] 01-29-2024 08:43-0400Systolic blood mm[Hg][facility]07-25-2024 09:38-0400Body .64 [facility]07-25-2024 09:38-0400Body mass index (BMI) [Ratio]31 kg/g9UzarmfhbxFirelands [facility]07-25-2024 09:38-0400Body cscviv22.31 [facility]07-25-2024 09:38-0400Diastolic blood lghqpalk55 mm[Hg] [facility]07-25-2024 09:38-0400Heart rate81 /[facility]07-25-2024 09:38-0400Respiratory rate12 /[facility]07-25-2024 09:38-0400Systolic blood qmefzpyq769 mm[Hg] [facility]06-23-2023 11:00-0400Body bnuqms162.18 cm Asif Ball Other [facility] Other 06-23-2023 11:00-0400Body mass index (BMI) [Ratio] 30.16 kg/h8Mcwynvvl Ball Other [facility] Other 06-23-2023 11:00-0400Body .36 kgBenranjeetmin Ball Other [facility] Other 06-23-2023 11:00-0400Diastolic blood yjhquojb74 mm[Hg] Asif Ball Other [facility] Other 06-23-2023 11:00-0400Respiratory rate16 /Wilfredo Ball Other [facility] Other 06-23-2023 11:00-0400Systolic blood xwgexehg648 mm[Hg] Asif Ball Other [facility] Other 06-17-2023 10:15-0400Body .18 Lawrence Purvis Other [employer] Other 06-17-2023 10:15-0400Body mass index (BMI) [Ratio] 29.94 kg/u5TitzkeSofia Purvis Other [facility] Other 06-17-2023 10:15-0400Body lfrznkunfpa86.8 [degF]Sofia Hyun Other [facility] Other 06-17-2023 10:15-0400Body .73 kgSofia Hyun Other [facility] Other 06-17-2023 10:15-0400Diastolic blood prmklway91 mm[Hg] Sofia Hyun Other [facility] Other 06-17-2023 10:15-0400Respiratory rate20 /minSofia Hyun Other [facility] Other 06-17-2023 10:15-8604XkH5% (BldA) [Mass fraction]92 % Sofia Purvis Other [facility] Other 06-17-2023 10:15-0400Systolic blood kxmcmlle228 mm[Hg] Sofiamiguel Purvis Other [facility] Other 06-14-2023 14:15-0400Body kijddu378.18 cmAziza Nietor Other [facility] Other 06-14-2023 14:15-0400Body mass index (BMI) [Ratio] 30.38 kg/m8Icrdvwsg Virginiarbacher Other [facility] Other 06-14-2023 14:15-0400Body sgeawp81 kgJeyazanteddy Virginiarbacher Other [facility] Other 06-14-2023 14:15-0400Diastolic blood pljyacuw724 mm[Hg]Aziza Barraganbowen Other [employer] Other 06-14-2023 14:15-0400Systolic blood yrltiesu935 mm[Hg] Aziza Byrne Other [facility] [employer] Other Encounters Encounter DateEncounter TypeCare ProviderFacilityStart: 03-11-2025 End: 08-08-3547wwkoavmreoHfqjtuqv Gen DO Work Phone: [facility] Work Phone: Start: 03-11-2025 End: 19-21-2572Scitsvn encounter procedureHonorhealth Scottsdale [facility] Medical Centerranjeetfabio Blevins [facility] Work Phone: Start: 03-11-2025 End: 45-85-8471Ycnogoy encounter statusCleveland Clinic Marymount Hospitaltart: 08-10-2024 End: 60-43-5984wnjxzhuyppTbbjrtmfeHolmes County [facility] Work Phone: Start: 08-10-2024 End: 24-16-3865Mdavwnc encounter procedureM[facility] Work Phone: Start: 06-24-2024 End: 39-04-0058tfkvjpmqofFjsfcosnwHolmes County [facility] Work Phone: Start: 06-24-2024 End: 42-08-0428Toeazuz encounter procedureFirjuan Physician Group-[facility] Work Phone: Start: 02-18-2024 End: 21-75-8085ueirtikapdYzuupwdfuHolmes County [facility] Work Phone: Start: 02-18-2024 End: 51-36-3211Fpfrfrj encounter procedureMission Family Health [facility] Physician GroupMcCullough-[facility] Work Phone: Start: 01-29-2024 End: 77-92-3939wsqfjnwucvRsnoyatvlHolmes County [facility] Work Phone: start: 01-29-2024 End: 60-73-1823Enakero encounter procedureMission [facility] Work Phone: Start: 01-02-2024 End: 92-10-2994cogaogiezzLhhxvfgbdOhioHealth [facility] Work Phone: Start: 01-02-2024 End: 66-75-9951Dtczjsqat for general adult medical examination without abnormal findingsBucyrus Community Hospitaltart: 01-02-2024 End: 10-78-5854Zuxeqfh encounter procedureM[facility] Work Phone: Start: 20-75-2814Meo-patient / Non-visitMission Family Health Center [facility]-[place] [employer] Work Phone: Start: 86-56-9572Gzniwgd encounter statusBucyrus Community Hospitaltart: 03-12-2023 End: 36-30-2704rfzqrqswxrLbyqxuyw Ball Other [employer] Other Start: 32-93-7697Egpsqctxa encounterBenjamin BallFPG Ball Medical ClinicStart: 12-10-2022 End: 72-07-9473hljjebeixkRrnqwfyy Ball Other [employer] Other Start: 64-73-6847Dhryggebw encounterBenjamin BallFPG [facility] Medical ClinicStart: 12-04-2022 End: 86-77-1067vquzekjtdrHiobmhvq Ball Other [employer] Other Start: 38-29-1939Cerlcsqta encounterBenjamin BallFPG Ball Medical ClinicStart: 11-30-2022 End: 42-39-7950hpvgwyxmlnPgszdxpu Ball Other [facility] Other Start: 75-65-8917Nvvrvcdvg for general adult medical examination without abnormal findingsBemeenu [facility] ClinicStart: 11-87-4547Gvkkmttq preventive med est patient 40-64yrsBemeenu BlevinsdAdy [facility] ClinicStart: 11-24-2022 End: 07-80-6000taakgcxnaiGmoyav Bailey Other [facility] [employer] Other Start: 72-29-5881Zifciu outpatient visit 15 minutes Sofia HyunAddy Urgent Care ClydeStart: 11-21-2022 End: 28-24-8338udewgfonldXcdgcszm Caty Other [facility] [employer] Other Start: 70-15-2653Xnayhp outpatient visit 15 minutes Aziza HimaYANNI [facility] ClinicStart: 40-61-4506Opkwaezsf for general adult medical examination without abnormal findingsDR ASIF BLEVINSUniversity Hospitals Conneaut Medical Centertart: 11-29-2021 End: 89-88-3730pdbaiehfbrMC ASIF BLEVINSFacility:V6Otzbg: 11-29-2021 End: 83-64-1146Prelxsumu for general adult medical examination without abnormal findings ASIF BLEVINSFacility:H9Tbvsh: 09-92-9807Rtjje health examination Asif Blevins Other [facility] [employer] Other Start: 06-14-2021 End: 14-30-5027tccbzmwoszBNAXNE ELI ROSSFacility:X4Vuokf: 36-53-6590Ubrmhsphf for preprocedural laboratory examinationDR DECLAN Artis [facility] Start: 59-36-9771Yuhvspqiy for other preprocedural examinationDR DECLAN Artis [facility] Hospitaltart: 02-03-2021 End: 32-63-8221nrjglxtwwjEG RICHARD M WIECEKFacility:B8Ocfpe: 01-31-2021 End: 68-73-3706sdhgqdvkhrVH RICHARD M WIECEKFacility:A4Chbxf: 01-31-2021 End: 45-22-3923Kkwkbpzbs for preprocedural laboratory examinationDR DECLAN SANTANARandyFacility:Y7Fxoiv: 01-25-2021 End: 85-97-8069hfohhvpqtnUG DECLAN SANTANARandyFacility:I5Nsmof: 01-25-2021 End: 49-29-7790Yvafimqoq for other preprocedural examinationDR DECLAN LLANOS Facility:R3Krnlk: 10-01-2017 End: 39-50-2713EjkrjgmzrbBBFKCleveland Clinic [facility] Procedures DateProcedureProcedure DetailPerforming ClinicianStart: 63-25-9654IMH screening VIRGEN Garcia on above:Performed By: #### PSASC #### [facility] [address] [address] [address] Eliza Ngpression screeningBenjamin Ball Other Plan of Treatment DateCare ActivityDetailAuthorXR Knee - left 4 [facility] Immunizations Immunization DateImmunizationNotesCare RwambyneRnwbxoml61-10-9548fffeozupf, injectable, madin kenrick canine kidney, preservative freeBenjamin Ball DO Work Phone: [facility]01-28-2021COVID-19 ModernaBenjamin Ball Other [facility]12-30-2020COVID-19 ModernaBenjamin Ball Other [facility] Payers DatePayer CategoryPayerPolicy [id number] 2..[id number] [id number] 2..[id number] [id number] Children's HospitalBVC1261358CG [id number] Social History DateTypeDetailFacilitySex Assigned At [facility] Other Start: 11-30-2022 End: 85-38-7087Vdjezbv smoking status NHISNever smoked tobacco (finding) [facility] Hospitaltart: 60-41-3432Pdx Assigned At [facility]art: 06-24-2024 End: 27-88-9055NnzAghv (finding)[facility] Clinical Notes 02-03-2021 to 06-24-2024 Note Date & InbzTpemAcczjlyb72-65-8452 Evaluation note* Diagnosis Onset Date Resolution Status Admit Date Elevated BP without diagnosis of hyperte nsion acuteJanuary 2024 3:04pmLeft hip painacuteJanuary 2024 3:04pmPrimary osteoarthritis of left hipacuteJanuary 2024 3:04pm [facility] Work Phone: [phone] Evaluation note* Encounter Date Diagnosis Assessment Notes Treatment Notes Treatment Clinical Notes Nov, Screening for colon cancer (ICD- 10 - Z12.11) [facility] Other 06-23-2023 Evaluation note* Encounter Date Diagnosis Assessment Notes Treatment Notes Treatment Clinical Notes Nov, Wellness examination (ICD-10 - Z 00.00) Healthy diet and exercise. Reviewed age-appropriate preventive testing recommended. Nov,utoimmune thyroiditis (ICD-10 - E06.3)Euthyroid, yearly TSH Nov,Other specified hypothyroidism (ICD-10 - E03.8) Nov,orderline learning disability (ICD-10 - R41.83)Family assisting w ADL Works at [employer] Nov,cute bronchitis due to other specified organisms (ICD-10 - J20.8) Instructed to use Robitussin or Mucinex for cough, saline or Flonase NS for congestion, Tylenol forpain and fever. Nov,Screening PSA (prostate specific antigen) (ICD-10 - Z12.5)Yearly PSA Nov,olon cancer screening (ICD-10 - Z12.11)DIscussed Cologuard vs colonoscopy [facility] Other 06-17-2023 Evaluation note* Encounter Date Diagnosis [...] no improvement after 7 days of antibiotic. [facility] Other 06-14-2023 Evaluation note* Encounter Date Diagnosis [...] verbalizes understanding and agreement with treatment plan. [facility] Other 08-27-2021 NoteOPERATIVE NOTE OPERATION DATE: 02/03/2021 PREOPERATIVE DIAGNOSIS: Incarcerated umbilical hernia. POSTOPERATIVE DIAGNOSIS: Incarcerated umbilical hernia (containing omentum). PROCEDURE PERFORMED: Incarcerated umbilical hernia repair with partial omentectomy of incarcerated omentum. SURGEON: Declan Llanos MD REFORMATORY ATTENDANT: STEPHANIE Keita. ANESTHESIA: General, 0.5% Marcaine for [...] taken to the PACU in fair condition.. [facility] Signed and Approved by: DR DECLAN LLANOS . 02/10/2021 06:37:00[facility] noteNo [facility] [employer] Other Evaluation note* Diagnosis Onset Date Resolution Status Hypothyroid acuteLearning disabilityacuteWellness examinationacuteScreening PSA (prostate specific antigen)noneactive [facility] Work Phone: Evaluation note* Diagnosis Onset Date Resolution Status Elevated BP without diagnosis of hyperte nsion acuteHypothyroidacuteLearning disabilityacuteLeft knee painacuteObesityacute Wellness examinationacuteScreening PSA (prostate specific antigen)noneactiveLeft hip painacutePrimary osteoarthritis of left hipacute [facility] Work Phone: Evaluation note* Diagnosis Onset Date Resolution Status Elevated BP without diagnosis of hyperte nsion acuteHypothyroidacuteLearning disabilityacuteLeft knee painacuteObesityacute Wellness examinationacuteScreening PSA (prostate specific antigen)noneactiveLeft hip painacutePrimary osteoarthritis of left hipacuteLeft hip painacutePrimary osteoarthritis of left hipacute [facility] Work Phone: Evaluation note* Diagnosis Onset Date Resolution Status Admit Date Elevated BP without diagnosis of hyperte nsion acuteJanuary 2024 3:04pmHypothyroidacuteJanuary 2024 3:04pmLearning disabilityacuteJanuary 2024 3:04pmLeft hip painacuteJanuary 2024 3:04pmPrimary osteoarthritis of left hipacuteJanuary 2024 3:04pm [facility] Work Phone: Evaluation note* Diagnosis Onset Date Resolution Status Admit Date Elevated BP without diagnosis of hyperte nsion acuteOctober 2024 10:29amHypothyroidacuteOctober 2024 10:29amLearning disabilityacuteOctober 2024 10:29amObesityacuteOctober 2024 10:29am Wellness examinationacuteOctober 2024 10:29amScreening PSA (prostate specific antigen)noneactiveOctober 2024 10:29am [facility] Work Phone: History general Narrative - Reported* Type Description Date Medical History Hypothyroid Surgical Historyhernia [id number] [facility] Other History general Narrative - Reported* Type Description Date Medical History Hypothyroid Medical HistoryMental disabilityMedical HistoryAdult hypothyroidismSurgical Historyhernia [id number] HistorySEE SURGICAL HX [facility] Other Reason for referral (narrative)No reason for referral information availableAultman Orrville Hospital Work Phone: Summary Purpose Family History [...] section and content) DATE CREATED AUTHOR 11/27/2017 [facility] DATE CREATED AUTHOR AUTHOR'S ORGANIZ ATION 12/01/2021 [facility] REASON FOR VISIT (unrecogniz ed section [...] BE BASED ON THE PRIMARY CLINICAL RECORDS. [facility]. provides no warranty or guarantee of the accuracy or completeness of information in this document.
[2025-04-14 11:52] LABS: Thyroid Stimulating Hormone 4.343 uIU/mL (0.358-3.740)
== END 2025-04-14 10:00 | disposition home or self-care (01) ==
LOC: LAB 10:02
PROVIDERS: PCP Internal Medicine; Visit Provider Internal Medicine
DX: Z12.5 Encounter for screening for malignant neoplasm of prostate (principal); E03.9 Hypothyroidism, unspecified
CPT/HCPCS: 36415; 84443; G0103